=== PATIENT | female | born 1940 | race Caucasian/White ===

== ENCOUNTER → 2023-07-19 11:11 | Outpatient (REF) | payer OTHER, SELFPAY | LOC: HWRAD 11:11 | PROVIDERS: ATTENDING PHYSICIAN Internal Medicine | DX: R10.31 Right lower quadrant pain (principal); R10.32 Left lower quadrant pain | CPT/HCPCS: 73523 ==

== ENCOUNTER → 2023-11-01 11:39 | Outpatient (REF) | payer OTHER, SELFPAY | LOC: HWRAD 11:39 | PROVIDERS: ATTENDING PHYSICIAN Internal Medicine | DX: R06.02 Shortness of breath (principal) | CPT/HCPCS: 71046 ==

== ENCOUNTER → 2023-12-21 11:22 | Outpatient (REF) | payer OTHER, SELFPAY ==
[2023-12-21 16:09] LABS: Blood Urea Nitrogen 20 mg/dl (7-17)
== END ==
LOC: HWLAB 11:22
PROVIDERS: ATTENDING PHYSICIAN Internal Medicine Critical Care Medicine; FAMILY PHYSICIAN Internal Medicine
DX: Z01.812 Encounter for preprocedural laboratory examination (principal)
CPT/HCPCS: 36415; 82565; 84520

== ENCOUNTER 2023-12-21 23:37 | Inpatient (IN) | payer OTHER, SELFPAY ==
[2023-12-21 18:28] VITALS: BP 170/93
[2023-12-21 21:16] VITALS: BP 179/81
[2023-12-21 21:24] LABS: % Basophils 0.6 % (0-2); % Eosinophils 1.9 % (0-6); % Immature Granulocytes 0.3 % (0-0.5); % Lymphocytes 25.2 % (20.5-51.1); % Monocytes 7.9 % (1.7-9.3); % Neutrophils 64.1 % (42.2-75.2); Absolute Eosinophils 0.1 10^3/uL (0-0.7); Absolute Lymphocytes 1.6 10^3/uL (1.2-3.4); Absolute Monocytes 0.5 10^3/uL (0.1-0.6); Hematocrit 36.7 % (37.0-47.0); Hemoglobin 12.6 g/dL (12.0-16.0); Mean Corp Hgb Conc. 34.3 g/dL (33.0-37.0); Mean Corpuscular Volume 90.4 fL (81.0-99.0); Mean Platelet Volume 10.5 fL (7.4-10.4); Nucleated Red Blood Cells % 0 %; Platelet Count 242 10^3/uL (130-400); Red Blood Cell Count 4.06 10^6/uL (4.20-5.40); Red Cell Dist. Width 13.2 % (11.5-14.5); White Blood Cell Count 6.2 10^3/uL (4.8-10.8)
[2023-12-21 21:25] VITALS: BMI 33.3
--- NOTE | 2023-12-21 21:25 | ED.GENMED ---
History of Present Illness
General
Chief Complaint: Breathing Problem
Source: patient, records (From Dr. frank office), spouse and family
Exam Limitations: none
Time Seen by Provider: 12/21/23 20:47
History of Present Illness
History of Present Illness:
83-year-old female with aphasia prior meningioma prior DVT has had shortness of breath for 1 year seen by cardiology total was in cardiac saw pulmonary for the first time for my review of the records not thought to have significant reactive airway
disease had blood work, including a D-dimer was elevated referred here for a CT scan denies fever denies chills denies cough does get short of breath when she walks no leg edema
Past History
Past History
ED Past Medical History: Other (See nurses note)
ED Past Surgical History: Brain
Social History
Tobacco: Former smoker
Alcohol: None
Drug: None
Personal:
Living: with family
Employment: Retired
Review of Systems
Review of Systems
Constitutional: Denies fever or fatigue
Respiratory: Reports trouble breathing (X 1 year); Denies cough
Cardiac: Reports no symptoms
ABD/GI: Reports no symptoms
: Reports no symptoms
Skin: Reports no symptoms
Phy Exam
Physical Exam
Physical Exam:
Physical Exam
General: no apparent distress, not acutely ill
Neck: No jaundice
Heart: Regular
Lungs: no acute respiratory distress. clear bilaterally
Abdomen: Nontender
Neuro: alert and oriented. Partial aphasia
Skin: no rash
Psychiatric: cooperative
Extremities: Question slight asymmetry right greater than left lower extremity
Scores
Heart Failure Risk
Heart Failure Risk Score: Not Applicable
Course
Orders/Labs/Results
Orders:
Orders
12/21/23 18:32
Electrocardiogram (*1) Urgent
Reason for Study: Shortness of Breath
EKG- Treatment ONCE
12/21/23 20:55
CT Chest Pe Study Urgent
Comment:
Reason For Exam: sob ddmer up
12/21/23 21:17
Complete Blood Count/With Diff Urgent
Comprehensive Metabolic Panel Urgent
D-Dimer Urgent
12/21/23 23:09
Heparin 6,600 units IV NOW STA
Pharmacy Request to Place See Dose Instructions PO NOW STA
Discontinue all Active Warfarin orders?: Yes
12/21/23 23:10
PTT Urgent
Comment: Obtain baseline before beginning heparin infusion if not already collected
Nursing to Place Non Medication Order As Directed
Physician Order: PTT 6 hours after initial start of Heparin infusion
12/21/23 23:15
Heparin INFUSION titrate rate - CONTINUOUS Heparin 87707 Units/250 ml 25,000 units in 250 ml IV PER PROTOCOL
Weight to be used for heparin protocol in kilograms (kg):: 82.4
Protocol:: DVT/PE
PTT Goal Range to be used:: PTT 73 to 111 seconds
Order type:: Initial
INITIAL Infusion Dose (UNITS/KG/hr) & then follow protocol:: 18 units/kg/hr
Infusion Dose in UNITS/hr & then follow protocol (UNITS/hr):: 1,500
INFUSION RATE in mL/hr & then follow protocol (mL/hr):: 15
For DVT/PE algorithm, re-bolus for low PTT?: Yes
PTT less than or equal to 64 seconds:: Re-bolus 80 units/kg (max 10,000units). Increase by 300 units/hr
(+ 3mL/hr)
PTT 64.1 to 72.9 seconds:: Re-bolus 40 units/kg (max 5,000 units). Increase by 200 units/hr
(+ 2mL/hr)
PTT 73 to 111 seconds:: Target Range. No change in rate.
PTT 111.1 to 130.9 seconds:: Decrease rate by 200 units/hr (- 2 mL/hr)
PTT 131 to 199.9 seconds:: HOLD for 1 hr. Then decrease by 200 units/hr (- 2mL/hr)
PTT greater than or equal to 200 seconds:: HOLD for 2 hrs & Notify Provider. Then decrease by 300 units/hr
(- 3mL/hr)
Lab follow-up:: Each change, PTT q6h until 2 consecutive are therapeutic. Then
PTT daily.
12/21/23 23:[address] See Dose Instructions IV DIRECTED
Abnormal Lab Results
12/21/23
21:17
RBC 4.06 L 10^6/uL
(4.20-5.40)
Hct 36.7 L %
(37.0-47.0)
MPV 10.5 H fL
(7.4-10.4)
D-Dimer 1.30 H ug/mlFEU
(0.00-0.50)
BUN 19 H mg/dl
(7-17)
Glucose 109 H mg/dl
(70-99)
Calcium 10.6 H mg/dl
(8.4-10.2)
12/21/23 21:17
12/21/23 21:17
Vital Signs
Initial and Last Documented VS:
Initial Vital Signs
Temp Pulse Resp BP Pulse Ox
98.2 F 44 18 170/93 99
12/21/23 18:28 12/21/23 18:28 12/21/23 18:28 12/21/23 18:28 12/21/23 18:28
Last Documented Vital Signs
Temp Pulse Resp BP Pulse Ox
98.2 F 44 20 179/81 96
12/21/23 18:28 12/21/23 21:16 12/21/23 21:16 12/21/23 21:16 12/21/23 21:25
MDM/Problems Addressed
Differential Diagnosis Includes:
Deconditioning, PE, heart failure
MDM/Problems Addressed:
Shortness of breath
Chronic conditions affecting care: HTN and Neurological disorder
Acute Exacerbation and/or Progression of Chronic Illness: HTN and Neurological disorder
*Radiology
Radiology exam reviewed: radiology read reviewed
*EKG
Interpreted by ED Provider?: Yes
Interpretation: normal
Comparison EKG: no comparison EKG present
Heart Rate: 70
Rate: normal
Rhythm: sinus
Ischemia: non-specific ST changes
*[employer] Operator Interpretation
Rate: normal
Interpretation: normal
Heart Rate: 70
Rhythm: sinus
*Critical Care Note
Total Time (30-74mins, 75-104mins- exclusive of procedures): 30
Update Note
Update Note:
Update consult from 2 days ago from pulmonary reviewed had a rather extensive workup not thought to have significant lung disease likewise family states that cell cardiology did not think that she has significant heart related dyspnea, from
reviewing the pulmonary notes it was thought this could be deconditioning, but D-dimer is elevated, will check CT scan
Update CT reviewed with radiology positive PE and mediastinal mass, will start on unfractionated heparin
ED Attending Note
-
Portions of this chart may have been created with voice recognition software.� Occasional wrong word or��sound alike� substitutions may have occurred due to the inherent limitations of voice recognition software.
Discharge Plan
Departure
Patient Disposition: Admit
Date of Disposition: 12/21/23
Time of Disposition: 23:11
Admit to: Med/Surg
Presentation/result/management discussed w/ accepting MD/DO: Hospitalist
Patient with high blood pressure during this ER visit?: No
Condition: Fair
Discharge Problem:
Pulmonary embolism
Prescriptions:
No Action
nifedipine [Procardia XL] 30 MG tablet extended release 24hr
30 mg PO DAILY
ranitidine HCl [Zantac] 300 MG tablet
300 mg PO HS
sucralfate 1 GRAM tablet
1 g PO BID
fexofenadine [Feli] 180 MG tablet
180 mg PO DAILY
omeprazole 40 MG capsule,delayed release(DR/EC)
40 mg PO BID
ascorbic acid (vitamin C) [Vitamin C] 500 MG tablet
500 mg PO DAILY
exemestane 25 MG tablet
25 mg PO DAILY
levothyroxine 150 MCG tablet
150 mcg PO DAILY AT 0700
furosemide 20 MG tablet
20 mg PO DAILY
losartan [Cozaar] 100 MG tablet
100 mg PO DAILY
rosuvastatin [Crestor] 5 MG tablet
5 mg PO .EVERYDAY
cholecalciferol (vitamin D3) 2,000 UNITS tablet
2,000 unit PO DAILY
magnesium oxide 400 MG tablet
400 mg PO DAILY
sennosides [senna] 1 TABLET tablet
2 tab PO BID Qty: 0 0RF
acetaminophen 325 MG tablet
650 mg PO QID Qty: 0 0RF
polyethylene glycol 3350 17 GRAMS powder in packet
17 grams PO DAILY Qty: 0 0RF
citalopram 10 MG tablet
10 mg PO HS Qty: 0 0RF
magnesium hydroxide 30 ML suspension
30 ml PO HS Qty: 0 0RF
oxycodone 5 MG tablet
5 mg PO Q4HPRN PRN (Reason: moderate-severe pain) Qty: 90 0RF
Rx Instructions:
dx tka
1-2 tabs
calcium carbonate-vitamin D3 [Oyster Shell Calcium-Vit D3] 500 MG tablet
500 mg PO DAILY Qty: 0 0RF
docusate sodium 100 MG capsule
100 mg PO BID Qty: 0 0RF
warfarin [Jantoven] 3 MG tablet
3 mg PO TONIGHT AT 1800 Qty: 90 0RF
Rx Instructions:
then as advised after INR
prednisone 10 MG tablet
40 mg PO .TAPER Qty: 20 0RF
Rx Instructions:
Take 40mg daily x2days, 30mg daily x2days,
20mg daily x2days, 10mg daily x2days.
Referrals:
Carisa Byrne MD [Family Provider] -
Interventions
Interventions:
*General Assessment Last Done: 12/21/23 18:28
*Neglect/Abuse Screening Last Done: 12/21/23 18:28
ED- Fall Risk Assessment Last Done: 12/21/23 21:25
*ED COVID-19 Vaccine History Last Done: 12/21/23 21:25
ED- Cardiac Assessment Last Done: 12/21/23 21:25
ED- Pulmonary Assessment Last Done: 12/21/23 21:25
Discharge Date and Time
Print Language: CAMEROONIAN
[2023-12-21 21:30] VITALS: BP 185/82
[2023-12-21 21:52] LABS: ALT (SGPT) 15 U/L (0-35); AST (SGOT) 23 U/L (14-36); Albumin 4.2 g/dl (3.5-5.0); Alkaline Phosphatase 95 U/L (38-126); Blood Urea Nitrogen 19 mg/dl (7-17); Calcium 10.6 mg/dl (8.4-10.2); Carbon Dioxide 28 mmol/L (22-30); Chloride 102 mmol/L (98-107); Estimated Creatinine Clearance 45 ml/min; Glucose 109 mg/dl (70-99); Potassium 3.8 mmol/L (3.5-5.1); Sodium 138 mmol/L (135-145); Total Bilirubin 0.8 mg/dl (0.2-1.3); Total Protein 6.5 g/dl (6.3-8.2); eGFR > 60.00
[2023-12-21 22:47] VITALS: BP 195/79
[2023-12-21 23:00] VITALS: BP 177/79
--- NOTE | 2023-12-21 23:15 | HPS.HSE ---
Family Physician
-
Family Physician: Carisa Byrne
Chief Complaint
-
Shortness of breath, CAMPBELL
History of Present Illness
83-year-old female complaining of shortness of breath and dyspnea on exertion for the past several months. She was seen by Dr. Ramirez pulmonology 1 week ago in the office she was sent for outpatient labs showed a elevated D-dimer. She was sent to
ER for eval of a CT PE study which showed small acute pulmonary emboli in the right upper lobe moderate cardiomegaly and a 2.8 cm anterior mediastinal mass. She denies headache, fever, chills, weight loss, cough, abdominal pain, nausea, vomiting,
diarrhea, urinary symptoms.
She she has past medical history DVT right lower extremity 1983, HTN, HLD, meningioma with removal then meningioma with clot removal 1983 after IV heparin for DVT. Aphasia secondary to prior meningioma. Hypothyroidism, thyroid nodules, anxiety,
OA, diverticulosis/diverticulitis, hiatal hernia, constipation, right breast CA with radiation lumpectomy 16 years ago
Medical History
Past Medical History
Past Medical History: Reports Other
Additional Past Medical History:
DVT right lower extremity 1983
HTN
HLD
meningioma x 2 removal had clot removal after bleed on heparin from DVT 19 years ago
Aphasia from prior meningioma
Former smoker quit 1980
hypothyroidism/ thyroid nodules
anxiety
OA
diverticulosis/diverticulitis
hiatal hernia
constipation
right breast CA with radiation lumpectomy
Past Surgical History: Reports Other
Additional Past Surgical History:
Benign thyroid nodule removal 1958, 1971
Removal of benign brain tumor meningioma with post bleed 05/1987
Hysterectomy 1987
Right breast biopsy, right axilla lymph node removal, radiation right breast secondary breast cancer 2012
Social History
Tobacco: Former Smoker (Quit 1980)
Alcohol: Occasional
Drug: None
Personal:
Living: With Family
Employment: Retired
Family History
Family History: Other (Mother pancreatic cancer, father MVA, brother living history of prostate cancer, sister living history of lymphoma, patient's son living history of breast cancer, renal carcinoma, thyroid cancer)
Allergies / Home Medications
Allergies reflects when Allergies were last updated in [facility].
Home Medications with original date entered in [facility]
Allergy/Medication List:
Allergies
Allergy/AdvReac Type Severity Reaction Status Date / Time
aminophylline Allergy Rash Verified 06/17/21 15:48
amlodipine Allergy Swelling Verified 06/17/21 15:48
amlodipine besylate Allergy edema Verified 06/17/21 15:48
[From Norvasc]
atenolol Allergy 'felt Verified 06/17/21 15:48
lousy'
codeine Allergy constipatio Verified 06/17/21 15:48
n
cortisone Allergy Rash Verified 06/17/21 15:48
diltiazem Allergy edema Verified 06/17/21 15:48
dipyridamole Allergy Rash Verified 06/17/21 15:48
[From Persantine]
irbesartan [From Avapro] Allergy palpitation Verified 06/17/21 15:48
s
olmesartan medoxomil Allergy dizziness Verified 06/17/21 15:48
[From Benicar]
Penicillins Allergy Rash Verified 06/17/21 15:48
phenytoin sodium Allergy Rash Verified 06/17/21 15:48
[From Dilantin]
phenytoin sodium extended Allergy Rash Verified 06/17/21 15:48
[From Dilantin]
prednisone Allergy Rash Verified 06/17/21 15:48
shellfish derived Allergy Welts Verified 06/17/21 15:48
simvastatin [From Zocor] Allergy muscle pain Verified 06/17/21 15:48
Sulfa (Sulfonamide Allergy Unknown Verified 06/17/21 15:48
Antibiotics)
Home Medications
ascorbic acid (vitamin C) 500 mg tablet (Vitamin C) 500 mg PO DAILY 03/07/16
cholecalciferol (vitamin D3) 50 mcg (2,000 unit) tablet 2,000 unit PO DAILY PRN unsure 03/07/16
fexofenadine 180 mg tablet (Feli) 180 mg PO DAILY 03/07/16
furosemide 20 mg tablet 20 mg PO DAILY 03/07/16
levothyroxine 150 mcg tablet 150 mcg PO DAILY AT 0700 03/07/16
magnesium oxide 400 mg PO DAILY 03/07/16
nifedipine 30 mg tablet,extended release 24 hr (Procardia XL) 30 mg PO DAILY 03/07/16
omeprazole 40 mg capsule,delayed release 40 mg PO BID 03/07/16
rosuvastatin 5 mg tablet (Crestor) 5 mg PO DAILY 03/07/16
B12 500 mcg PO DAILY 12/21/23
Caltrate 600 plus D 1 tab PO DAILY 12/21/23
Celebrex 200 mg PO DAILY PRN pain 12/21/23
Vitamin C 500 mg PO DAILY 12/21/23
cholecalciferol (vitamin D3) 1,000 mg PO DAILY 12/21/23
folic acid 1 mg PO DAILY 12/21/23
valsartan 160 mg PO DAILY 12/21/23
acetaminophen 325 mg tablet 500 mg PO Q6H 12/22/23
citalopram 10 mg tablet 20 mg PO HS 12/22/23
Review of Systems
-
History Source: Patient and Family (Daughter and at bedside)
A 12 point ROS was completed and negative except as noted: Yes
Constitutional: Denies Fever, Fatigue or Chills
EENT: Reports Other (Chronic aphasia); Denies Sore Throat or Runny Nose
Respiratory: Reports Trouble Breathing (SOB/CAMPBELL); Denies Cough
Cardiac: Reports Chest Pain (Left upper chest); Denies Diaphoresis, Palpitations or Syncope
Abdomen/GI: Denies Abdominal Pain, Nausea, Vomiting, Diarrhea or Constipated
: Denies Dysuria, Frequency, Flank Pain, Incontinence, Difficulty Voiding or Bleeding
Musculoskeletal: Reports Edema (Bilateral legs +1 left greater than right); Denies Joint Pain
Skin: Denies Itching or Rash
Neurological: Denies Dizzy, Headache or Weakness
Endocrine: Reports No Symptoms
Hematologic/Lymphatic: Reports No Symptoms
Psych: Reports Calm
Physical Exam
Vital Signs
Vital Signs
Temp Pulse Resp BP Pulse Ox
98.2 F 44 20 179/81 96
12/21/23 18:28 12/21/23 21:16 12/21/23 21:16 12/21/23 21:16 12/21/23 21:25
Physical Exam
General: No Apparent Distress, Comfortable and Conversant; No Pain, Fever or Chills
HEENT: NormoCephalic, Anicteric, Moist mucous membranes, PERRLA, [place] Conjunctivae, No Ptosis and Other (Chronic aphasia)
Respiratory: Clear; No Wheezes, Rales or Rhonchi
Cardiac: S1/S2 and Regular Rhythm; No Murmur, Rub or Gallop
Breast: Deferred by me
GI: Soft, Non Tender, Non Distended, Normal Bowel Sounds and No Hepatosplenomegaly
Rectal: Deferred by Provider
Genito-urinary: Deferred by me
Musculoskeletal: No Clubbing, No Cyanosis, Edema, Left Lower Extremity (Bilateral legs +1 left greater than right) and Edema, Right Lower Extremity (Bilateral legs +1 left greater than right); No Edema, Left Upper Extremity or Edema, Right Upper
Extremity
Skin: Warm and Dry; No Rash or Jaundice
Neuro: AO x 3, No Motor Deficits, No Sensory Deficits and Slurred Speech (Chronic aphasia from prior meningioma); No Facial Droop, Tremors or Sedated
Psych: Calm
Laboratory Results
-
12/21/23 21:17
12/21/23 21:17
Laboratory Results
Total Bilirubin 0.8 mg/dl (0.2-1.3) 12/21/23 21:17
AST 23 U/L (14-36) 12/21/23 21:17
ALT 15 U/L (0-35) 12/21/23 21:17
Alkaline Phosphatase 95 U/L (38-126) 12/21/23 21:17
Impression/Plan
-
Impression/plan:
Admit to telemetry
#Acute PE right upper lobe
96% RA
-IV heparin drip
-Consult pulmonary
-2D echo
Venous Doppler bilateral legs
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
-Consult pulmonary
CT chest: Acute pulmonary emboli right upper lobe. Moderate cardiomegaly. 2.8 cm mass in the anterior mediastinum diagnostic possibilities thymic epithelial tumor, lymphoma, germ cell tumor or a complex cyst. Mild subpleural scarring in the lower
lobes of the lungs. Small hiatal hernia. Severe multilevel thoracic DDD and moderately exaggerated thoracic kyphosis
#Multilevel thoracic DDD/thoracic kyphosis
#DVT hx right lower extremity 1983
#Meningioma removal x2-no residual meningioma per family at bedside at [facility]
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
with post hemorrhage removal after dvt treatment with heparin 19 years ago
#HTN
-BP 179/81
HLD
Hypothyroidism/ thyroid nodules
-Continue levothyroxine
Anxiety
-
OA
Diverticulosis/diverticulitis
Hiatal hernia
Constipation
Right breast CA with radiation lumpectomy 16 years ago
Former smoker quit 1980
DVT prophylaxis
Current IV heparin drip
DNR per patient with daughter and at bedside
--- NOTE | 2023-12-21 23:19 | W.PN.UPDATE ---
Update Note
Progress Note Update
This note serves as an addendum to the H&P by building energy consultant VINCENT Kaylynn DOTSON
HPI:
83F HX aphasia prior meningioma, HX DVT pw shortness of breath with exertion
HX significant reactive airway disease had blood work, including a D-dimer was elevated referred to ER for a CT scan
- denies fever denies chills denies cough does get short of breath when she walks no leg edema
Vital Signs
Temp Pulse Resp BP Pulse Ox
98.2 F 44 20 179/81 96
12/21/23 18:28 12/21/23 21:16 12/21/23 21:16 12/21/23 21:16 12/21/23 21:25
Abnormal Lab Results
12/21/23
21:17
RBC 4.06 L
Hct 36.7 L
MPV 10.5 H
D-Dimer 1.30 H
BUN 19 H
Glucose 109 H
Calcium 10.6 H
EKG:
SINUS BRADYCARDIA WITH 1ST DEGREE A-V BLOCK WITH PREMATURE ATRIAL COMPLEXES
LEFT VENTRICULAR HYPERTROPHY WITH QRS WIDENING AND REPOLARIZATION ABNORMALITY
( R in aVL , Shiva product )
CANNOT RULE OUT SEPTAL INFARCT (CITED ON OR BEFORE 07-MAR-2016)
ABNORMAL ECG
WHEN COMPARED WITH ECG OF 07-MAR-2016 09:32,
PREMATURE ATRIAL COMPLEXES ARE NOW PRESENT
QRS DURATION HAS INCREASED
ST NOW DEPRESSED IN LATERAL LEADS
[facility] PE protocol
- small acute PE in the Rt uppr lobe.
- Moderate cardiomegaly.
- 2.8 cm mass in the anterior mediastinum. Diagnostic possibilities are (1) a thymic epithelial tumor, (2) lymphoma, (3) a germ cell tumor, or (4) a complex cyst.
- Mild subpleural scarring in the lower lobes of the lungs.
- Small hiatal hernia.
- Severe multilevel thoracic discogenic degenerative disease and moderately exaggerated thoracic kyphosi
ASSESSMENT & PLAN
Acute on chronic Schreiber with POx 96 % on RA
Small acute PE in the Rt uppr lobe
No clinical evidence of RV strain
HX DVT
- agree with Heparin gtt
- ECHO in AM
- Pul consult
2.8 cm mass in the anterior mediastinum.
DDX (1) a thymic epithelial tumor, (2) lymphoma, (3) a germ cell tumor, or (4) a complex cyst.
- await Pul evaluation
[facility] HTN
- await Rx reconciliation
HX aphasia s/p meningioma resection
DVT Px: on Heaprin gtt
Code: Full
IP TLM
[2023-12-22] VITALS (7 sets, daily range): BP systolic 119–187; BP diastolic 61–86; BMI 30.4
[2023-12-22] MEDS: HEPARIN 6600 UNITS IV (00:06)
[2023-12-22] MEDS: HEPARIN 25000 UNITS/250 ML IV ×2 (00:08→20:28)
[2023-12-22] MEDS: TYLENOL PO ×2 (01:53→17:25)
[2023-12-22] MEDS: SYNTHROID 150 MCG PO (06:18)
[2023-12-22 06:19] LABS: % Basophils 0.6 % (0-2); % Eosinophils 2.5 % (0-6); % Immature Granulocytes 0.4 % (0-0.5); % Lymphocytes 31.3 % (20.5-51.1); % Monocytes 7.2 % (1.7-9.3); Absolute Eosinophils 0.2 10^3/uL (0-0.7); Absolute Lymphocytes 2.1 10^3/uL (1.2-3.4); Absolute Monocytes 0.5 10^3/uL (0.1-0.6); Absolute Neutrophils 3.9 10^3/uL (1.4-6.5); Hematocrit 36.8 % (37.0-47.0); Hemoglobin 12.6 g/dL (12.0-16.0); Mean Corp Hgb Conc. 34.2 g/dL (33.0-37.0); Mean Corpuscular Hgb 30.9 pg (27.0-31.0); Mean Corpuscular Volume 90.2 fL (81.0-99.0); Mean Platelet Volume 10.2 fL (7.4-10.4); Nucleated Red Blood Cells % 0 %; Platelet Count 250 10^3/uL (130-400); Red Blood Cell Count 4.08 10^6/uL (4.20-5.40); Red Cell Dist. Width 13.2 % (11.5-14.5); White Blood Cell Count 6.8 10^3/uL (4.8-10.8)
[2023-12-22] MEDS: TYLENOL 500 MG PO ×2 (06:19→15:12)
[2023-12-22 06:43] LABS: APTT > 200.0 Sec (23.4-35.0)
[2023-12-22 08:54] LABS: Blood Urea Nitrogen 16 mg/dl (7-17); Calcium 10.5 mg/dl (8.4-10.2); Carbon Dioxide 27 mmol/L (22-30); Chloride 103 mmol/L (98-107); Estimated Creatinine Clearance 47 ml/min; Glucose 126 mg/dl (70-99); Potassium 3.7 mmol/L (3.5-5.1); Sodium 140 mmol/L (135-145); eGFR > 60.00
[2023-12-22] MEDS: CRESTOR 5 MG PO (08:57)
[2023-12-22] MEDS: MAGNESIUM OXIDE 500 MG PO (08:57)
[2023-12-22] MEDS: OSCAL 500 + D 500 MG PO (08:57)
[2023-12-22] MEDS: VITAMIN D3 (cholecalciferol) 50 MCG PO (08:57)
[2023-12-22] MEDS: DIOVAN 160 MG PO (08:57)
[2023-12-22] MEDS: VITAMIN C 500 MG PO (08:57)
[2023-12-22] MEDS: LASIX 20 MG PO (08:57)
[2023-12-22] MEDS: FOLVITE 1 MG PO (08:57)
[2023-12-22] MEDS: CLARITIN 10 MG PO (08:57)
[2023-12-22] MEDS: PROTONIX 40 MG PO ×2 (08:57→20:27)
[2023-12-22] MEDS: PROCARDIA XL (EXTENDED RELEASE) 30 MG PO (09:00)
--- NOTE | 2023-12-22 09:42 | CON.PUL ---
Consultation
Consultation Request
Date/Time Consultation Requested: 12/21/20232357
Date/Time Consultation Performed: 12/22/2023 - 919
Requesting Provider: DENAE Hughes
Performing Provider: Richard Rodriguez MD
Reason for Consultation: Acute PE
Medical History
-
Chief Complaint: Worsening SOB
History of Present Illness:
83-year-old female with a past medical history of GERD, hypothyroidism, hypertension, hyperlipidemia, history of breast cancer, history of postoperative RLE DVT, history pneumonia, and osteoporosis who presents with worsening SOB. Patient follows
with us in the office with last visit on 12/06/[address] Fritz. Patient has shortness of breath with activity and 6 MWT at that office visit showed she had homar SpO2 of 93% and she was able to walk 850 feet. PFT did not show any evidence of
obstructive or restrictive lung disease, with mild gas exchange capacity defect which was normal when accounting for alveolar volume involving gas exchange (DLco: 64%; DLco/VA: 74%). She is a former smoker smoking minimally for 4 years and quit in
1983. She has a history of a postoperative right lower extremity DVT. She was also felt to have physical deconditioning. Physical therapy was recommended to her by her PCP as well as speech therapy. At this last office visit, D-dimer was
recommended with plans for CTA chest if elevated. D-dimer was found to be elevated at 2.44 so she went to the hospital for further evaluation. Initial vitals showed she was afebrile to 98.2 �F, bradycardic to 44, breathing at 18 breaths/minute, BP
170/93 and saturating 99% on room air. Labs showed normal WBC at 6.2, Hb 12.6, and D-dimer 1.3. CTA chest showed a small acute pulmonary embolism in the right upper lobe in addition to a 2.8 cm mass in the anterior mediastinum. Patient was
started on IV heparin, and admitted to the hospitalist service for further care. Pulmonary now consulted for additional management/recommendations.
When I saw the patient, the patient's daughter, Laura, was present at bedside. Patient has expressive aphasia so unable to obtain history or ROS from her. According to the patient's daughter, she has been doing better since she has been
hospitalized. Patient has been, however, feeling more short of breath over the last 5-6 months. She normally is an independent woman and able to perform all activities of daily living with autonomy. This has been worsening over the last several
months. Patient currently is on room air breathing comfortably. She appears to be in no acute distress. Currently on heparin drip.
PMHx: Reflux esophagitis, hypothyroidism, hypertension, hyperlipidemia, breast cancer, allergic rhinitis, meningioma, postoperative DVT, osteoporosis, expressive aphasia, history of pneumonia, history of bronchitis, physical deconditioning
PSHx: Cataract extraction, total abdominal hysterectomy/BSO, tonsillectomy, partial thyroidectomy, right knee replacement, trigger finger release, lipoma excision, meningioma resection, lymph node dissection
Past Medical History
Past Medical History: Other (Above as per HPI)
Past Surgical History: Other (Above as per HPI)
Social History
Tobacco: Former Smoker (Quit in 1983, smoked for about 4 years with 2-3 cigarettes socially)
Alcohol: None
Drug: None
Living: [facility]
Family History
Family History: Cancer (Mother: Pancreatic cancer; maternal grandmother: Colon cancer; maternal uncle: Colon cancer; son: Thyroid cancer), Hypertension (Sibling) and Other (Sibling: Multiple sclerosis)
Allergies / Home Medications
Allergies
Allergy/AdvReac Type Severity Reaction Status Date / Time
aminophylline Allergy Rash Verified 06/17/21 15:48
amlodipine Allergy Swelling Verified 06/17/21 15:48
amlodipine besylate Allergy edema Verified 06/17/21 15:48
[From [facility]]
atenolol Allergy 'felt Verified 06/17/21 15:48
lousy'
codeine Allergy constipatio Verified 06/17/21 15:48
n
cortisone Allergy Rash Verified 06/17/21 15:48
diltiazem Allergy edema Verified 06/17/21 15:48
dipyridamole Allergy Rash Verified 06/17/21 15:48
[From Persantine]
irbesartan [From Avapro] Allergy palpitation Verified 06/17/21 15:48
s
olmesartan medoxomil Allergy dizziness Verified 06/17/21 15:48
[From Benicar]
Penicillins Allergy Rash Verified 06/17/21 15:48
phenytoin sodium Allergy Rash Verified 06/17/21 15:48
[From Dilantin]
phenytoin sodium extended Allergy Rash Verified 06/17/21 15:48
[From Dilantin]
prednisone Allergy Rash Verified 06/17/21 15:48
shellfish derived Allergy Welts Verified 06/17/21 15:48
simvastatin [From Zocor] Allergy muscle pain Verified 06/17/21 15:48
Sulfa (Sulfonamide Allergy Unknown Verified 06/17/21 15:48
Antibiotics)
Home Medications
�Medication �Instructions �Recorded �Confirmed �Last Taken �Type
ascorbic acid (vitamin C) 500 mg 500 mg PO DAILY 03/07/16 12/22/23 12/21/23 09:00 History
tablet (Vitamin C)
cholecalciferol (vitamin D3) 50 2,000 unit PO DAILY PRN unsure 03/07/16 12/22/23 03/19/16 History
mcg (2,000 unit) tablet
fexofenadine 180 mg tablet 180 mg PO DAILY 03/07/16 12/22/23 12/21/23 09:00 History
(Feli)
furosemide 20 mg tablet 20 mg PO DAILY 03/07/16 12/22/23 12/21/23 History
levothyroxine 150 mcg tablet 150 mcg PO DAILY AT 0700 03/07/16 12/22/23 12/21/23 07:00 History
magnesium oxide 400 mg PO DAILY 03/07/16 12/22/23 12/21/23 09:00 History
nifedipine 30 mg tablet,extended 30 mg PO DAILY 03/07/16 12/22/23 12/21/23 09:00 History
release 24 hr (Procardia XL)
omeprazole 40 mg capsule,delayed 40 mg PO BID 03/07/16 12/22/23 12/21/23 10:00 History
release
rosuvastatin 5 mg tablet (Crestor) 5 mg PO DAILY 03/07/16 12/22/23 12/21/23 09:00 History
B12 500 mcg PO DAILY 12/21/23 12/22/23 12/21/23 09:00 History
Caltrate 600 plus D 1 tab PO DAILY 12/21/23 12/22/23 12/21/23 09:00 History
Celebrex 200 mg PO DAILY PRN pain 12/21/23 12/22/23 Unknown History
Vitamin C 500 mg PO DAILY 12/21/23 12/22/23 12/21/23 09:00 History
cholecalciferol (vitamin D3) 1,000 mg PO DAILY 12/21/23 12/22/23 12/21/23 09:00 History
folic acid 1 mg PO DAILY 12/21/23 12/22/23 12/21/23 09:00 History
valsartan 160 mg PO DAILY 12/21/23 12/22/23 12/21/23 09:00 History
acetaminophen 325 mg tablet 500 mg PO Q6H PRN pain 12/22/23 12/22/23 12/21/23 09:00 History
citalopram 10 mg tablet 20 mg PO HS 12/22/23 12/22/23 12/20/23 22:00 History
Review of Systems
-
Unable to Obtain full review of systems at this time due to: Other (Patient has expressive aphasia)
Vitals / Labs / Diagnostic Testing
Vital Signs
Temp Pulse Resp BP Pulse Ox
98.4 F 42 18 181/86 94
12/22/23 07:06 12/22/23 07:06 12/22/23 07:06 12/22/23 07:06 12/22/23 07:06
Lab Data
12/22/23 06:04
12/22/23 06:04
Laboratory Results
12/21/23 12/22/23
23:10 06:04
PT 14.0
INR 1.10
APTT Cancelled > 200.0 H*
Diagnostic Testing:
Physical Exam
-
HEENT: Normocephalic and Anicteric
Cardiovascular: S1/S2, Murmur (RADHA heard across precordium) and Peripheral Edema (negative)
Respiratory: Wheeze (negative), Rales (Bibasilar), Rhonchi (negative) and Non-Labored Respirations
GI: Soft, Non Distended, Non Tender and Normal Bowel Sounds
Neurology: Awake, Alert and Tremors (negative)
Skin: Warm and Dry
General: Respiratory Distress (negative), Comfortable, Chills (negative) and Sweats (negative)
Assessment
-
Assessment: 83-year-old female with a past medical history of GERD, hypothyroidism, hypertension, hyperlipidemia, history of breast cancer, history of postoperative RLE DVT, history pneumonia, and osteoporosis who presents with worsening SOB.
Patient follows with us in the office with last visit on 12/06/[address] Fritz. Patient has shortness of breath with activity and 6 MWT at that office visit showed she had homar SpO2 of 93% and she was able to walk 850 feet. PFT did not show
any evidence of obstructive or restrictive lung disease, with mild gas exchange capacity defect which was normal when accounting for alveolar volume involving gas exchange (DLco: 64%; DLco/VA: 74%).. She is a former smoker smoking minimally for 4
years and quit in 1983. She has a history of a postoperative right lower extremity DVT. She was also felt to have physical deconditioning. Physical therapy was recommended to her by her PCP as well as speech therapy. At this last office visit,
D-dimer was recommended with plans for CTA chest if elevated. D-dimer was found to be elevated at 2.44 so she went to the hospital for further evaluation. Initial vitals showed she was afebrile to 98.2 �F, bradycardic to 44, breathing at 18
breaths/minute, BP 170/93 and saturating 99% on room air. Labs showed normal WBC at 6.2, Hb 12.6, and D-dimer 1.3. CTA chest showed a small acute pulmonary embolism in the right upper lobe in addition to a 2.8 cm mass in the anterior mediastinum.
Patient was started on IV heparin, and admitted to the hospitalist service for further care. Pulmonary now consulted for additional management/recommendations.
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
deconditioning
Impression:
#Submassive pulmonary embolism without right heart strain
#2.8 cm incidental mass seen in the anterior mediastinum seen on CTA chest from 12/21/2023
#Hypothyroidism
#Reflux esophagitis
#Allergic rhinitis
#History of postoperative right lower extremity DVT
#Osteoporosis
#Expressive aphasia
#History of meningioma s/p resection
#Former Hx of light tobacco use (2-3 cigarettes per day for ~4 years - quit 1983)
Plan:
- Continue with systemic parenteral anticoagulation with heparin drip
- Will continue with heparin drip for at least 24-48 hours before transitioning to NOAC; would also wait until cardiothoracic surgery evaluates patient in case mediastinal mass biopsy is needed
- Check 2D echo
- Lower extremity duplex negative for bilateral lower extremity DVT
- Maintain SpO2 >90-94% with supplemental O2 as needed
- Incentive spirometer
- Recommend cardiothoracic surgery consult regarding incidental 2.8 cm anterior mediastinal mass
- Replete electrolytes with K>4, Mg>2
- Maintain euglycemia with goal BG >100 and <180
- prn nebulized bronchodilators - pt not currently bronchospastic
- DVT ppx
Pulmonary service will continue to follow along. Patient was advised to follow-up with Dr. Fritz as an outpatient following discharge.
Data:
CTA Chest 12/21/2023:
1. SMALL ACUTE PULMONARY EMBOLI in the RIGHT UPPER LOBE.
2. Moderate cardiomegaly.
3. 2.8 cm mass in the anterior mediastinum. Diagnostic possibilities are (1) a thymic epithelial tumor, (2) lymphoma, (3) a germ cell tumor, or (4) a complex cyst.
4. Mild subpleural scarring in the lower lobes of the lungs.
5. Small hiatal hernia.
6. Severe multilevel thoracic discogenic degenerative disease and moderately exaggerated thoracic kyphosis.
Total time spent today was 55 minutes for this encounter. Time includes reviewing laboratory test/imaging results, reviewing pertinent medical records, obtaining and reviewing medical history, performing an appropriate exam, ordering medications,
tests and procedures. Time also includes documentation of this encounter, coordinating patient care and communicating with other healthcare professionals. Total time does not include separately billed tests performed on this date of service.
--- NOTE | 2023-12-22 09:52 | PTOTSP ---
ST Evaluation
Oropharyngeal function appears WFL at the bedside. Known esophageal impairment reported repeat dilations in the past; appears managed with strategies, rx
Pt received awake/alert with daughter present at the bedside. Sitting upright in bed pt self adminstered pills (multiple) followed with sip of water by straw - no overt s/sx of aspiration observed. Regular solids; demo grossly functional mastication
and minimal diffuse oral residuals which were cleared with liquid chaser. Pt report occasional globus sensation has h/o esophageal dilations most recent dilation was ~6-7 years ago and underwent repeat dilations prior to that. Does not feel
esophageal dysphagia has worsened. Advised use of compensatory strategies: small bites, use of moistening agents, small sips, and cyclic ingestion of solids/liquids t/o meal. Takes PPI per daughter (omeprazole)
Recommendations
1. Regular solids/thin liquids
2. Aspiration and MARIMAR/reflux precautions
3. Small bites, small sips, alternate liquids/solids and slow rate of intake
4. Meds oral per pt preference and RN discretion
5. Advised follow up with GI if worsening esophageal s/sx
6. No further acute ST tx indicated
[2023-12-22 15:13] LABS: APTT 122.5 Sec (23.4-35.0)
--- NOTE | 2023-12-22 16:13 | W.PN.HOSP.TC ---
Today's Communication/Plan
-
Continue Heparin Drip DVT/PE protocol
Low Sodium diet
Continue telemetry monitoring
Appreciate Pulmonary and Cardiology
Assessment / Plan
Assessment / Plan
Physical Exam
General: Not in acute distress
HEENT: Normocephalic
Respiratory: CTAB
Cardiac: S1/S2 and Regular Rhythm; Bradycardia
GI: Soft, Non Tender, Non Distended, Normal Bowel Sounds
Musculoskeletal: No Cyanosis. Edema, Left Lower Extremity (Bilateral legs +1 left greater than right) and Edema, Right Lower Extremity (Bilateral legs +1 left greater than right)
Skin: Warm and Dry
Neuro: AAO x 3. Nonfocal/grossly intact.
Psych: Calm
Assessment/Plan
#Acute PE right upper lobe
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
-Continue IV heparin drip, DVT/PE protocol
-Consulted pulmonary, appreciate their evaluation and recommendations
-2D echo pending
-Venous Doppler bilateral legs showed no DVT
#Moderate Cardiomegaly on CT Chest
#Concern for Slow A-Fib on athletic monitor
-Consulted cardiology, appreciate evaluation and recommendations
#Multilevel thoracic DDD/thoracic kyphosis
#DVT hx right lower extremity 1983
#Meningioma removal x2-no residual meningioma per family at bedside at [facility]
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
with post hemorrhage removal after dvt treatment with heparin 19 years ago
#HTN
-Continue patient's home medications
-Low sodium diet
HLD
Hypothyroidism/ thyroid nodules
-Continue levothyroxine
Anxiety
-
OA
Diverticulosis/diverticulitis
Hiatal hernia
Constipation
Right breast CA with radiation lumpectomy 16 years ago
Former smoker quit 1980
DVT prophylaxis: Heparin drip
Code Status: DNR
Anticipated Discharge: 24 - 48 hours
Subjective/Interval History
-
Date of Service: December 22, 2023
Patient was seen and examined. She reported no new symptoms or complaints at the time she was seen, but still with some shortness of breath.
Objective Data
-
Labs:
Laboratory Results
12/22/23 12/22/23 12/22/23
06:04 14:49 21:15
WBC 6.8
Hgb 12.6
Hct 36.8 L
Plt Count 250
PT 14.0
INR 1.10
APTT > 200.0 H* 122.5 H Pending
Sodium 140
Potassium 3.7
Chloride 103
Carbon Dioxide 27
BUN 16
Creatinine 0.9
Glucose 126 H
Calcium 10.5 H
Vital Signs:
Vital Signs
Temp Pulse Resp BP Pulse Ox
98.4 F 58 16 143/74 95
12/22/23 15:02 12/22/23 15:02 12/22/23 15:02 12/22/23 15:02 12/22/23 15:02
I&O
12/21/23 12/22/23 12/23/23
06:59 06:59 06:59
Intake Total 120 / 120
Balance 120 / 120
--- NOTE | 2023-12-22 16:29 | PTCARENOTE ---
pt with AAx3 pleasant. pt denies jania pain. PT with expressive aphasia, slow speech but able to make all needs known. PT on IV heparin for PE, PT on heparin IV: PTT at 7 am was > 200, placed onhold 2 hours and reduced to 1200 units. then PTT at
1500 was 122.5 and rate was reduced to 1000 units. Next PTT is at 2115. No signs of bleeding, pt received education on heparin and verbalized an understanding. Lungs course in bases decreased throughout, IS given and at bedside, 98% on room air,
no cough no sob noted. THIS am BP 181/87 and HR 38-42. There were hold parameters on her meds . removed HR hold parameters and told me to give her medications to her. Her HR is currently ranging from 60-70 with regular PAC every other beat.
Pt denies any CP or palpitations. pt with harsh systolic murmru and BLE edema. Speech consult obtained first thing in AM and pt was able to swallow all of her medications without any difficulty, whole and at same time. Pt eats 100% of meals,.
PT is a one assist into the bathroom for safety and has beenvoiding without any difficulty. Family is at bedisde and will continue to montior
[2023-12-22] MEDS: CELEXA 20 MG PO (20:28)
[2023-12-22 22:43] LABS: APTT 95.3 Sec (23.4-35.0)
[2023-12-22] MEDS: APRESOLINE 5 MG IV (23:32)
[2023-12-23] VITALS (9 sets, daily range): BP systolic 134–189; BP diastolic 67–84
--- NOTE | 2023-12-23 00:14 | CONSULT.CT ---
Patient History
Physicians
Family Physician: Carisa Byrne MD
Outpatient Chinese Instructor: Outpatient Pulmonoligist: Sienna Fritz MD
Inpatient Chinese Instructor: Inpatient Quality Assurance Manager: Richard Rodriguez MD
History of Present Illness
83 y/o pleasant woman who is a resident of [facility] living with her , who suffers from expressive aphasia d/t complications from prior meningioma (history obtained from pt and medical records). Pt tells me she has been having CAMPBELL x 5
months and has been following up with Dr. Reji Fritz of Pulmonary. Pt was referred to -[facility] on 12/21/23 for further evaluation after her outpt. blood work yielded an elevated D-Dimer of 2.44. A CTA of the chest was obtained on 12/20 showing:
SMALL ACUTE PULMONARY EMBOLI in the RIGHT UPPER LOBE, 2.8 cm mass in the anterior mediastinum (diagnostic possibilities are (1) a thymic epithelial tumor, (2) lymphoma, (3) a germ cell tumor, or (4) a complex cyst), moderate cardiomegaly, mild
subpleural scarring in the lower lobes of the lungs, small hiatal hernia, and severe multilevel thoracic discogenic degenerative disease and moderately exaggerated thoracic kyphosis. Pt was admitted to Hospital Service and started on heparin gtt.
Pulmonary consult is concerned about the 2.0 x 2.1 x 2.8 cm anterior mediastinal mass and consulted CT Surgery for our input, as pt will eventually require NOAC/DOAC management in the coming days.
Past Medical History
-Small RUL Pulmonary Embolism
-Anterior mediastinal mass (2.8 cm)
-Progressive CAMPBELL
-Expressive Aphasia
-Physical deconditioning
-Osteoporosis
-Kyphosis
-Hx Meningioma S/P resection 1979, 1987
-Hx Breast Ca S/P radiation and lumpectomy, 2012
-Former tobacco use during college years, quit 1983, 2-3 cigarettes socially
-Hx PNA
-HTN
-HLD
-Class 1 obesity (BMI 30.3)
-Hypothyroidism
-GERD/Hiatal hernia
-Bradycardia
-Cardiomegaly
-Hx RLE DVT
Past Surgical History
-S/p Partial thyroidectomy, 9,1971
-S/p cataracts
-S/P tonsillectomy
-S/P Meningioma resection, 1979, 1987
-S/P Lumpectomy/radiation, 2012
-S/P Resection of Lipoma
-S/P Lymph node resection
-S/p Total hysterectomy/BSO
-S/p TKA
-S/P Release of trigger finger
Dental History
Up to date
Family History
Mother: at Age
Father: at Age
Family Medical History: Cancer (Breast CA, Prostate CA, Thyroid CA, Colon CA)
Social History
Alcohol: None
Drug: None
Tobacco: Former Smoker
Personal:
Living: With Spouse
Employment: Retired
Allergies
Allergy/AdvReac Type Severity Reaction Status Date / Time
aminophylline Allergy Rash Verified 06/17/21 15:48
amlodipine Allergy Swelling Verified 06/17/21 15:48
amlodipine besylate Allergy edema Verified 06/17/21 15:48
[From Norvasc]
atenolol Allergy 'felt Verified 06/17/21 15:48
lousy'
codeine Allergy constipatio Verified 06/17/21 15:48
n
cortisone Allergy Rash Verified 06/17/21 15:48
diltiazem Allergy edema Verified 06/17/21 15:48
dipyridamole Allergy Rash Verified 06/17/21 15:48
[From Persantine]
irbesartan [From Avapro] Allergy palpitation Verified 06/17/21 15:48
s
olmesartan medoxomil Allergy dizziness Verified 06/17/21 15:48
[From Benicar]
Penicillins Allergy Rash Verified 06/17/21 15:48
phenytoin sodium Allergy Rash Verified 06/17/21 15:48
[From Dilantin]
phenytoin sodium extended Allergy Rash Verified 06/17/21 15:48
[From Dilantin]
prednisone Allergy Rash Verified 06/17/21 15:48
shellfish derived Allergy Welts Verified 06/17/21 15:48
simvastatin [From Zocor] Allergy muscle pain Verified 06/17/21 15:48
Sulfa (Sulfonamide Allergy Unknown Verified 06/17/21 15:48
Antibiotics)
Home Medications
�Medication �Instructions �Recorded �Confirmed �Type
ascorbic acid (vitamin C) 500 mg 500 mg PO DAILY Supplement 03/07/16 12/22/23 History
tablet (Vitamin C)
cholecalciferol (vitamin D3) 50 2,000 unit PO DAILY PRN unsure 03/07/16 12/22/23 History
mcg (2,000 unit) tablet
fexofenadine 180 mg tablet 180 mg PO DAILY Allergies 03/07/16 12/22/23 History
(Feli)
furosemide 20 mg tablet 20 mg PO DAILY Fluid 03/07/16 12/22/23 History
Retention/Swelling
levothyroxine 150 mcg tablet 150 mcg PO DAILY AT 0700 Thyroid 03/07/16 12/22/23 History
magnesium oxide 400 mg PO DAILY Supplement 03/07/16 12/22/23 History
nifedipine 30 mg tablet,extended 30 mg PO DAILY Blood Pressure 03/07/16 12/22/23 History
release 24 hr (Procardia XL)
omeprazole 40 mg capsule,delayed 40 mg PO BID Gastrointestinal Issue 03/07/16 12/22/23 History
release
rosuvastatin 5 mg tablet (Crestor) 5 mg PO DAILY High Cholesterol 03/07/16 12/22/23 History
B12 500 mcg PO DAILY Supplement 12/21/23 12/22/23 History
Caltrate 600 plus D 1 tab PO DAILY Supplement 12/21/23 12/22/23 History
Celebrex 200 mg PO DAILY PRN pain 12/21/23 12/22/23 History
Vitamin C 500 mg PO DAILY Supplement 12/21/23 12/22/23 History
cholecalciferol (vitamin D3) 1,000 mg PO DAILY Supplement 12/21/23 12/22/23 History
folic acid 1 mg PO DAILY Supplement 12/21/23 12/22/23 History
valsartan 160 mg PO DAILY Blood Pressure 12/21/23 12/22/23 History
acetaminophen 325 mg tablet 500 mg PO Q6H PRN pain 12/22/23 12/22/23 History
citalopram 10 mg tablet 20 mg PO HS Depression 12/22/23 12/22/23 History
Review of Systems
-
Respiratory: Reports SOB and CAMPBELL
Physical Exam
Vital Signs
Temp 98.1 F 12/22/23 23:00
Temp route: Oral 12/22/23 23:00
Pulse 43 12/22/23 22:39
Rhythm: Sinus bradycardia 12/22/23 10:36
With- Bundle Branch Block Confi, Sinus bradycardia 12/22/23 01:50
Resp Rate 16 12/22/23 23:00
Blood pressure 184/76 12/22/23 22:39
Blood pressure extremity used: Left upper arm 12/22/23 19:00
Position: Lying 12/22/23 22:39
MAP (cuff-Justyn Monitor) 105 12/21/23 23:00
SaO2 96 12/22/23 23:00
Oxygen Mode of Delivery Room air 12/22/23 23:00
Can the patient verbally communicate their pain? Yes 12/22/23 01:50
Actual Weight 80.15 kg 12/22/23 01:16
Body Mass Index (BMI) 30.4 12/22/23 01:16
Labs
PT 14.0 Sec (11.4-14.6) 12/22/23 06:04
APTT 95.3 Sec (23.4-35.0) H 12/22/23 22:27
Exam
General: Well Nourished and No Apparent Distress (on RA)
HEENT: Normocephalic, Moist Mucous Membranes, Atraumatic, PERRLA and EOMI
Neck: Trachea Midline
Respiratory: Other (decrease BS on right)
Cardiac: S1/S2 and Regular Rhythm (sinus bradycardia 50's)
GI: Soft, Non Tender, Non Distended and Normal Bowel Sounds
Rectal: Deferred by Provider
Skin: Warm
Neuro: Awake, Alert, Oriented, AO x 3 and Other (with expressive aphasia, slight left facial droop)
Extremities: Other (+trace edema)
Lymph: No Lymphadenopathy
Psych: Calm
Assessment / Plan
-
Assessment:
-Small RUL Pulmonary Embolism
-Anterior mediastinal mass (2.8 cm)
-Progressive CAMPBELL
-Expressive Aphasia
-Physical deconditioning
-Osteoporosis
-Kyphosis
-Hx Meningioma S/P resection 1987
-Hx Breast Ca S/P radiation and lumpectomy, 2012
-Former tobacco use during college years, quit 1984, 2-3 cigarettes socially
-Hx PNA
-HTN
-HLD
-Class 1 obesity (BMI 30.3)
-Hypothyroidism
-GERD/Hiatal hernia
-Bradycardia
-Cardiomegaly
-Hx RLE DVT
-S/p Partial thyroidectomy, 1959,1971
-S/p cataracts
-S/P tonsillectomy
-S/P Meningioma resection, 1987
-S/P Lumpectomy/radiation, 2012
-S/P Resection of Lipoma
-S/P Lymph node resection
-S/p Total hysterectomy/BSO
-S/p TKA
-S/P Release of trigger finger
Plan:
-CT Surgeon to review imaging and determine if biopsy of 2.8 cm anterior mediastinal mass or any surgical intervention is warranted
-Cont. current medical management per primary team
[2023-12-23] MEDS: TYLENOL PO ×2 (01:32→17:01)
[2023-12-23] MEDS: APRESOLINE 5 MG IV ×2 (03:37→22:48)
[2023-12-23 04:39] LABS: Hematocrit 36.4 % (37.0-47.0); Hemoglobin 12.7 g/dL (12.0-16.0); Mean Corp Hgb Conc. 34.9 g/dL (33.0-37.0); Mean Corpuscular Hgb 31.9 pg (27.0-31.0); Mean Corpuscular Volume 91.5 fL (81.0-99.0); Mean Platelet Volume 10.1 fL (7.4-10.4); Platelet Count 228 10^3/uL (130-400); Red Blood Cell Count 3.98 10^6/uL (4.20-5.40); Red Cell Dist. Width 13.2 % (11.5-14.5); White Blood Cell Count 5.4 10^3/uL (4.8-10.8)
[2023-12-23 04:51] LABS: APTT 108.1 Sec (23.4-35.0)
[2023-12-23 05:28] LABS: Blood Urea Nitrogen 19 mg/dl (7-17); Calcium 10.7 mg/dl (8.4-10.2); Carbon Dioxide 25 mmol/L (22-30); Chloride 106 mmol/L (98-107); Estimated Creatinine Clearance 47 ml/min; Glucose 139 mg/dl (70-99); Potassium 3.5 mmol/L (3.5-5.1); Sodium 141 mmol/L (135-145); eGFR > 60.00
[2023-12-23] MEDS: SYNTHROID 150 MCG PO (06:07)
[2023-12-23] MEDS: TYLENOL 500 MG PO ×2 (08:41→12:57)
[2023-12-23] MEDS: CRESTOR 5 MG PO (08:42)
[2023-12-23] MEDS: OSCAL 500 + D 500 MG PO (08:42)
[2023-12-23] MEDS: DIOVAN 160 MG PO (08:42)
[2023-12-23] MEDS: PROTONIX 40 MG PO ×2 (08:42→20:33)
[2023-12-23] MEDS: VITAMIN C 500 MG PO (08:43)
[2023-12-23] MEDS: PROCARDIA XL (EXTENDED RELEASE) 30 MG PO (08:43)
[2023-12-23] MEDS: CLARITIN 10 MG PO (08:43)
[2023-12-23] MEDS: MAGNESIUM OXIDE 500 MG PO (08:43)
[2023-12-23] MEDS: FOLVITE 1 MG PO (08:43)
[2023-12-23] MEDS: VITAMIN D3 (cholecalciferol) 50 MCG PO (08:43)
[2023-12-23] MEDS: LASIX 20 MG PO (08:43)
[2023-12-23] MEDS: KCL 40 MEQ PO (08:58)
[2023-12-23 09:21] LABS: Albumin 3.8 g/dl (3.5-5.0); Magnesium 2.3 mg/dl (1.6-2.3)
--- NOTE | 2023-12-23 09:31 | CON.CAR ---
Consultation
Consultation Request
Date/Time Consultation Requested: 12/22/23 7:00pm
Date/Time Consultation Performed: 12/23/23 9:00AM
Requesting Provider: Dr Mckenzie
Performing Provider: Dr Rasmussen
Reason for Consultation: possible afib
Medical History
-
Chief Complaint: sob
History of Present Illness:
83-year-old female with a past medical history of meningioma with aphasia, GERD, hypothyroidism, hypertension, hyperlipidemia, history of breast cancer, history of postoperative RLE DVT, history pneumonia, and osteoporosis who presents from
Pulmonary office with worsening SOB. She has a history of a postoperative right lower extremity DVT. A D-dimer was found to be abnormal at 2.4 and CTA chest showed a small acute pulmonary embolism in the right upper lobe in addition to a 2.8 cm
mass in the anterior mediastinum. She has moderate expressive aphasia from her meningioma. She denies any current chest pains. She does have shortness of breath and fatigue. She denies any palpitations, dizziness, or syncope. She has no
previous cardiac history. She has no falls. She was also found to have a 2.8 cm mediastinal mass.
Past Medical History
Past Medical History: GERD, HTN, Hypercholesterolemia, Hypothyroidism and Other (Meningioma s/p resection with expressive aphasia, history of DVT, osteoporosis)
Past Surgical History: Other (Hysterectomy 1987, right breast lumpectomy 2012, right knee replacement 2015, meningioma resection)
Social History
Tobacco: Non-Smoker
Alcohol: None
Drug: None
Living: [facility]
Family History
Family History: Hypertension
Allergies / Home Medications
Allergy/AdvReac Type Severity Reaction Status Date / Time
aminophylline Allergy Rash Verified 06/17/21 15:48
amlodipine Allergy Swelling Verified 06/17/21 15:48
amlodipine besylate Allergy edema Verified 06/17/21 15:48
[From [facility]]
atenolol Allergy 'felt Verified 06/17/21 15:48
lousy'
codeine Allergy constipatio Verified 06/17/21 15:48
n
cortisone Allergy Rash Verified 06/17/21 15:48
diltiazem Allergy edema Verified 06/17/21 15:48
dipyridamole Allergy Rash Verified 06/17/21 15:48
[From Persantine]
irbesartan [From Avapro] Allergy palpitation Verified 06/17/21 15:48
s
olmesartan medoxomil Allergy dizziness Verified 06/17/21 15:48
[From Benicar]
Penicillins Allergy Rash Verified 06/17/21 15:48
phenytoin sodium Allergy Rash Verified 06/17/21 15:48
[From Dilantin]
phenytoin sodium extended Allergy Rash Verified 06/17/21 15:48
[From Dilantin]
prednisone Allergy Rash Verified 06/17/21 15:48
shellfish derived Allergy Welts Verified 06/17/21 15:48
simvastatin [From Zocor] Allergy muscle pain Verified 06/17/21 15:48
Sulfa (Sulfonamide Allergy Unknown Verified 06/17/21 15:48
Antibiotics)
�Medication �Instructions �Recorded �Confirmed �Type
ascorbic acid (vitamin C) 500 mg 500 mg PO DAILY Supplement 03/07/16 12/22/23 History
tablet (Vitamin C)
cholecalciferol (vitamin D3) 50 2,000 unit PO DAILY PRN unsure 03/07/16 12/22/23 History
mcg (2,000 unit) tablet
fexofenadine 180 mg tablet 180 mg PO DAILY Allergies 03/07/16 12/22/23 History
(Feli)
furosemide 20 mg tablet 20 mg PO DAILY Fluid 03/07/16 12/22/23 History
Retention/Swelling
levothyroxine 150 mcg tablet 150 mcg PO DAILY AT 0700 Thyroid 03/07/16 12/22/23 History
magnesium oxide 400 mg PO DAILY Supplement 03/07/16 12/22/23 History
nifedipine 30 mg tablet,extended 30 mg PO DAILY Blood Pressure 03/07/16 12/22/23 History
release 24 hr (Procardia XL)
omeprazole 40 mg capsule,delayed 40 mg PO BID Gastrointestinal Issue 03/07/16 12/22/23 History
release
rosuvastatin 5 mg tablet (Crestor) 5 mg PO DAILY High Cholesterol 03/07/16 12/22/23 History
B12 500 mcg PO DAILY Supplement 12/21/23 12/22/23 History
Caltrate 600 plus D 1 tab PO DAILY Supplement 12/21/23 12/22/23 History
Celebrex 200 mg PO DAILY PRN pain 12/21/23 12/22/23 History
Vitamin C 500 mg PO DAILY Supplement 12/21/23 12/22/23 History
cholecalciferol (vitamin D3) 1,000 mg PO DAILY Supplement 12/21/23 12/22/23 History
folic acid 1 mg PO DAILY Supplement 12/21/23 12/22/23 History
valsartan 160 mg PO DAILY Blood Pressure 12/21/23 12/22/23 History
acetaminophen 325 mg tablet 500 mg PO Q6H PRN pain 12/22/23 12/22/23 History
citalopram 10 mg tablet 20 mg PO HS Depression 12/22/23 12/22/23 History
Review of Systems
-
History Source: Patient and Physician
Constitutional: No Symptoms
EENT: No Symptoms
Respiratory: Cough and Trouble Breathing
Cardiac: No Symptoms
Abdomen/GI: No Symptoms
: No Symptoms
Musculoskeletal: No Symptoms
Skin: No Symptoms
Neurological: Other (Expressive aphasia)
Endocrine: No Symptoms
Hematologic/Lymphatic: No Symptoms
Physical Exam
Vital Signs
Temp Pulse Resp BP Pulse Ox
97.9 F 45 16 167/67 95
12/23/23 07:49 12/23/23 07:49 12/23/23 07:49 12/23/23 07:49 12/23/23 07:49
Lab Results
12/23/23 04:31
12/23/23 04:31
Physical Exam
General: Well Developed and Well Nourished
HEENT: Normocephalic and Anicteric
Respiratory: Clear and Non Labored Respirations
Cardiac: S1/S2, Regular Rhythm (With ectopy) and Murmur (04/14 syst LSB)
GI: Soft and Non Tender
Musculoskeletal: No Cyanosis and No Edema
Skin: Warm and Dry
Neuro: Awake and Other (Expressive aphasia)
Psych: Calm
Impression / Plan
-
Impression:
Shortness of breath/dyspnea on exertion
Sinus rhythm with frequent PACs
Submassive pulmonary embolism without right heart strain
2.8 cm incidental mass seen in the anterior mediastinum seen on CTA chest from 12/21/2023
Hypothyroidism
GERD
History of postoperative right lower extremity DVT
History of meningioma s/p resection with aphasia
PLan:
We were asked to see her to comment on possible atrial fibrillation found on the glass blower. I reviewed her telemetry. There is sinus rhythm with PACs but no clear atrial fibrillation.
Check echocardiogram. We will continue to follow her on telemetry.
She needs full anticoagulation with pulmonary embolism as well.
Blood pressure has been elevated. Continue valsartan, Lasix, and will increase nifedipine to 60 mg daily.
Her resting heart rate is in the 40s and 50s so would hold off on AV laury blockers.
Data Reviewed
-
EKG: Report Reviewed by me
Radiology: Report Reviewed by me
CT Scan: Report Reviewed by me
Labs: Labs Reviewed by me
Old Records: Reviewed
--- NOTE | 2023-12-23 09:35 | W.PN.PUL3 ---
Today's Communication / Plan
-
Heparin drip
Follow-up cardiothoracic surgery recommendations
If no mediastinal mass biopsy is to be done while inpatient, recommend transition to Eliquis tomorrow
CM consult to assure that Eliquis is affordable
Okay to get up OOB as tolerated
PT/OT
Assessment
-
Assessment: 83-year-old female with a past medical history of GERD, hypothyroidism, hypertension, hyperlipidemia, history of breast cancer, history of postoperative RLE DVT, history pneumonia, and osteoporosis who presents with worsening SOB.
Patient follows with us in the office with last visit on 12/06/[address] Fritz. Patient has shortness of breath with activity and 6 MWT at that office visit showed she had homar SpO2 of 93% and she was able to walk 850 feet. PFT did not show
any evidence of obstructive or restrictive lung disease, with mild gas exchange capacity defect which was normal when accounting for alveolar volume involving gas exchange (DLco: 64%; DLco/VA: 74%).. She is a former smoker smoking minimally for 4
years and quit in 1983. She has a history of a postoperative right lower extremity DVT. She was also felt to have physical deconditioning. Physical therapy was recommended to her by her PCP as well as speech therapy. At this last office visit,
D-dimer was recommended with plans for CTA chest if elevated. D-dimer was found to be elevated at 2.44 so she went to the hospital for further evaluation. Initial vitals showed she was afebrile to 98.2 �F, bradycardic to 44, breathing at 18
breaths/minute, BP 170/93 and saturating 99% on room air. Labs showed normal WBC at 6.2, Hb 12.6, and D-dimer 1.3. CTA chest showed a small acute pulmonary embolism in the right upper lobe in addition to a 2.8 cm mass in the anterior mediastinum.
Patient was started on IV heparin, and admitted to the hospitalist service for further care. Pulmonary now consulted for additional management/recommendations.
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
deconditioning
Impression:
#Submassive pulmonary embolism without right heart strain
#2.8 cm incidental mass seen in the anterior mediastinum seen on CTA chest from 12/21/2023
#Hypothyroidism
#Reflux esophagitis
#Allergic rhinitis
#History of postoperative right lower extremity DVT
#Osteoporosis
#Expressive aphasia
#History of meningioma s/p resection
#Former Hx of light tobacco use (2-3 cigarettes per day for ~4 years - quit 1983)
Plan:
- Continue with systemic parenteral anticoagulation with heparin drip
- Will continue with heparin drip for at least 24-48 hours before transitioning to NOAC; would also wait until cardiothoracic surgery evaluates patient in case mediastinal mass biopsy is needed
- If no mediastinal biopsy is required while inpatient, then rec'd transitioning to Eliquis tomorrow. Consult case management to assure that Eliquis is affordable
- Check 2D echo
- Lower extremity duplex negative for bilateral lower extremity DVT
- Maintain SpO2 >90-94% with supplemental O2 as needed
- Incentive spirometer
- Cardiothoracic surgery consulted regarding incidental 2.8 cm anterior mediastinal mass; recommendations appreciated
- Replete electrolytes with K>4, Mg>2
- Maintain euglycemia with goal BG >100 and <180
- prn nebulized bronchodilators - pt not currently bronchospastic
- DVT ppx
Pulmonary service will continue to follow along. Patient was advised to follow-up with Dr. Fritz as an outpatient following discharge.
Data:
CTA Chest 12/21/2023:
1. SMALL ACUTE PULMONARY EMBOLI in the RIGHT UPPER LOBE.
2. Moderate cardiomegaly.
3. 2.8 cm mass in the anterior mediastinum. Diagnostic possibilities are (1) a thymic epithelial tumor, (2) lymphoma, (3) a germ cell tumor, or (4) a complex cyst.
4. Mild subpleural scarring in the lower lobes of the lungs.
5. Small hiatal hernia.
6. Severe multilevel thoracic discogenic degenerative disease and moderately exaggerated thoracic kyphosis.
Total time spent today was 35 minutes for this encounter. Time includes reviewing laboratory test/imaging results, reviewing pertinent medical records, obtaining and reviewing medical history, performing an appropriate exam, ordering medications,
tests and procedures. Time also includes documentation of this encounter, coordinating patient care and communicating with other healthcare professionals. Total time does not include separately billed tests performed on this date of service.
Subjective Data
-
Date of Service:
Date of Service: December 23, 2023
Chief Complaint: Pulmonary Follow Up
Subjective:
Patient seen and evaluated today at bedside. Remains on heparin drip. Currently on room air breathing comfortably. Saturating 96%. Afebrile overnight. No acute events reported from overnight. She is ambulating without reports of dyspnea, as
per bedside RN.
Review of Systems
General: Other (Negative unless mentioned above)
Objective Data
Data Reviewed
Vital Signs / I&O / Oxygen:
Vital Signs
Temp Pulse Resp BP Pulse Ox
97.9 F 45 16 167/67 95
12/23/23 07:49 12/23/23 07:49 12/23/23 07:49 12/23/23 07:49 12/23/23 07:49
Intake and Output
12/22/23 12/23/23 12/24/23
06:59 06:59 06:59
Intake Total 120 / 120 360 / 360
Balance 120 / 120 360 / 360
SaO2 95
Physical Exam
General: Respiratory Distress (negative), Comfortable and Chills (negative)
HEENT: Normocephalic and Anicteric
Cardiovascular: Peripheral Edema (negative), Other (Distant heart sounds) and Other (Normal heart rate)
Respiratory: Wheeze (negative), Rhonchi (negative) and Other (Coarse breath sounds heard bilaterally)
GI: Soft, Non Distended, Non Tender and Normal Bowel Sounds
Neurology: Awake, Alert and Tremors (negative)
Skin: Warm, Dry and Jaundice (negative)
Labs/Micro/Reports
Lab Data
12/23/23 04:31
12/23/23 04:31
Laboratory Results
12/22/23 12/22/23 12/23/23
14:49 22:27 04:31
APTT 122.5 H 95.3 H 108.1 H
--- NOTE | 2023-12-23 11:04 | W.PN.UPDATE ---
Update Note
Progress Note Update
Full consult on chart
Given her admission for Acute PE, significant comorbidites and age, I would continue treating her acute condition.
Biopsy of mediastinal mass can be considered as outpt.
I will have Dr Isbell, who practices thoracic surgery, weigh in tomorrow.
--- NOTE | 2023-12-23 12:19 | W.PN.HOSP.TC ---
Today's Communication/Plan
-
Dr. Isbell to weigh in on chest mass tomorrow
Continue Heparin Drip
Appreciate pulmonary, cardiology and cardiothoracic surgery
Assessment / Plan
Assessment / Plan
Physical Exam
General: Not in acute distress
HEENT: Normocephalic
Respiratory: CTAB
Cardiac: S1/S2 and Regular Rhythm; Bradycardia
GI: Soft, Non Tender, Non Distended, Normal Bowel Sounds
Musculoskeletal: No Cyanosis. Edema, Left Lower Extremity (Bilateral legs +1 left greater than right) and Edema, Right Lower Extremity (Bilateral legs +1 left greater than right)
Skin: Warm and Dry
Neuro: AAO x 3. Nonfocal/grossly intact.
Psych: Calm
Assessment/Plan
#Acute PE right upper lobe
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
#History of postoperative right lower extremity DVT
-Continue IV heparin drip, DVT/PE protocol
-Consulted pulmonary, appreciate their evaluation and recommendations
-2D echo pending
-Venous Doppler bilateral legs showed no DVT
-Cardiothoracic surgery consulted, appreciate evaluation and recommendations -- Dr. Isbell to weigh in on 12/24/23
#Moderate Cardiomegaly on CT Chest
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
#Bradycardia
-Consulted cardiology, appreciate evaluation and recommendations: confirmed to be no A-Fib at this time
-Avoid AV tami blockers
#Mild Hypercalcemia
-IV Normal Saline for a total of 300 cc
-Careful with IV fluids given finding of cardiomegaly on CT Chest -- awaiting echo to assess EF and for any signs of CHF
#Multilevel thoracic DDD/thoracic kyphosis
#DVT hx right lower extremity 1983
#Meningioma removal x2-no residual meningioma per family at bedside at [facility]
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
with post hemorrhage removal after dvt treatment with heparin 19 years ago
#HTN
-Continue patient's home medications but increased Nifedipine to 60 mg daily
-Low sodium diet
-Avoid AV Tami Blockers
#Hyperlipidemia
#Hypothyroidism/ thyroid nodules
-Continue levothyroxine
Anxiety
-
OA
Diverticulosis/diverticulitis
Hiatal hernia
Constipation
Right breast CA with radiation lumpectomy 16 years ago
Former smoker quit 1980
DVT prophylaxis: Heparin drip
Code Status: DNR
Anticipated Discharge: 24 - 48 hours
Subjective/Interval History
-
Date of Service: December 23, 2023
Patient was seen and examined. She denied any new, significant symptoms or complaints.
Objective Data
-
Labs:
Laboratory Results
12/23/23
04:31
WBC 5.4
Hgb 12.7
Hct 36.4 L
Plt Count 228
APTT 108.1 H
Sodium 141
Potassium 3.5
Chloride 106
Carbon Dioxide 25
BUN 19 H
Creatinine 0.9
Glucose 139 H
Calcium 10.7 H
Vital Signs:
Vital Signs
Temp Pulse Resp BP Pulse Ox
97.9 F 71 16 163/82 96
12/23/23 11:03 12/23/23 11:03 12/23/23 11:03 12/23/23 11:03 12/23/23 11:03
I&O
12/22/23 12/23/23 12/24/23
06:59 06:59 06:59
Intake Total 120 / 120 360 / 360
Balance 120 / 120 360 / 360
[2023-12-23] MEDS: NSS 1000 IV (12:57)
--- NOTE | 2023-12-23 16:41 | CM ---
Reviewed chart, met with patient to obtain information for assessment. Patient had her and daughter, Laura [phone]. Patient stated that she lives at [facility] with her spouse. She reported being independent with all of her ADL,
self care, bathing and dressing. She uses a walker for long distances. Patient's spouse does all of the cooking, cleaning and laundry or they go to the dining [employer]azquez. Patient's spouse drives and can get to her appointments and does her shopping.
Patient has never had VN services.
She would be agreeable to SNF if indicated but would like to go to [facility].
Patient has a prescription plan and uses, [facility] in [place] for all of her medications.
Her PCP is, Yrn Nelson.
Plan: Case management will continue to follow and assist with discharge planning. SNF if indicated.
[2023-12-23] MEDS: HEPARIN 25000 UNITS/250 ML IV (20:34)
[2023-12-23] MEDS: CELEXA 20 MG PO (21:34)
[2023-12-24] MEDS: TYLENOL 500 MG PO ×3 (01:11→12:30)
[2023-12-24 01:22] VITALS: BP 178/83
[2023-12-24] MEDS: APRESOLINE 5 MG IV (01:51)
[2023-12-24 03:00] VITALS: BP 161/76
[2023-12-24 05:41] LABS: % Basophils 0.6 % (0-2); % Eosinophils 5.4 % (0-6); % Immature Granulocytes 0.2 % (0-0.5); % Lymphocytes 27.2 % (20.5-51.1); % Monocytes 9.1 % (1.7-9.3); % Neutrophils 57.5 % (42.2-75.2); Absolute Eosinophils 0.3 10^3/uL (0-0.7); Absolute Lymphocytes 1.4 10^3/uL (1.2-3.4); Absolute Monocytes 0.5 10^3/uL (0.1-0.6); Absolute Neutrophils 2.9 10^3/uL (1.4-6.5); Hematocrit 36.8 % (37.0-47.0); Hemoglobin 12.4 g/dL (12.0-16.0); Mean Corp Hgb Conc. 33.7 g/dL (33.0-37.0); Mean Corpuscular Hgb 31.6 pg (27.0-31.0); Mean Corpuscular Volume 93.9 fL (81.0-99.0); Mean Platelet Volume 10.4 fL (7.4-10.4); Nucleated Red Blood Cells % 0 %; Platelet Count 227 10^3/uL (130-400); Red Blood Cell Count 3.92 10^6/uL (4.20-5.40); Red Cell Dist. Width 13.6 % (11.5-14.5)
[2023-12-24] MEDS: SYNTHROID 150 MCG PO (05:42)
[2023-12-24 06:00] VITALS: BMI 30.7
[2023-12-24 06:09] LABS: Blood Urea Nitrogen 16 mg/dl (7-17); Calcium 10.7 mg/dl (8.4-10.2); Carbon Dioxide 25 mmol/L (22-30); Chloride 105 mmol/L (98-107); Estimated Creatinine Clearance 42 ml/min; Glucose 124 mg/dl (70-99); Potassium 4.1 mmol/L (3.5-5.1); Sodium 141 mmol/L (135-145); eGFR 55.21
[2023-12-24 08:01] VITALS: BP 182/83
[2023-12-24] MEDS: PROTONIX 40 MG PO (08:10)
[2023-12-24] MEDS: CRESTOR 5 MG PO (08:10)
[2023-12-24] MEDS: PROCARDIA XL (EXTENDED RELEASE) 60 MG PO (08:10)
[2023-12-24] MEDS: OSCAL 500 + D 500 MG PO (08:10)
[2023-12-24] MEDS: VITAMIN C 500 MG PO (08:10)
[2023-12-24] MEDS: CLARITIN 10 MG PO (08:10)
[2023-12-24] MEDS: VITAMIN D3 (cholecalciferol) 50 MCG PO (08:11)
[2023-12-24] MEDS: DIOVAN 160 MG PO (08:11)
[2023-12-24] MEDS: LASIX 20 MG PO (08:11)
[2023-12-24] MEDS: FOLVITE 1 MG PO (08:11)
[2023-12-24] MEDS: MAGNESIUM OXIDE 500 MG PO (08:11)
--- NOTE | 2023-12-24 09:10 | W.PN.HOSP.TC ---
Today's Communication/Plan
-
dc after seen by specialists and PT
Assessment / Plan
Assessment / Plan
Physical Exam
General: Not in acute distress
HEENT: Normocephalic
Respiratory: CTAB
Cardiac: S1/S2 and Regular Rhythm; Bradycardia
GI: Soft, Non Tender, Non Distended, Normal Bowel Sounds
Musculoskeletal: No Cyanosis. Edema, Left Lower Extremity (Bilateral legs +1 left greater than right) and Edema, Right Lower Extremity (Bilateral legs +1 left greater than right)
Skin: Warm and Dry
Neuro: AAO x 3. Nonfocal/grossly intact.
Psych: Calm
Assessment/Plan
#Acute PE right upper lobe
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
#History of postoperative right lower extremity DVT
-s/p 48 hours of IV heparin drip, DVT/PE protocol
-Consulted pulmonary, appreciate their evaluation and recommendations, ok to start oral AC
-2D echo 12/24/23: EF 60-65%, mild LVH, mild (29/17/2.3), mild-mod AI.
-Venous Doppler bilateral legs showed no DVT
-Cardiothoracic surgery consulted, appreciate evaluation and recommendations -- Dr. Isbell recommended OP follow up, ok to start oral AC.
#Moderate Cardiomegaly on CT Chest
#Sinus rhythm with PACs on awake overnight monitor
#Bradycardia
-Consulted cardiology, appreciate evaluation and recommendations: confirmed to be no A-Fib at this time
-Avoid AV tami blockers
#Mild Hypercalcemia, resolved.
#Multilevel thoracic DDD/thoracic kyphosis
#DVT hx right lower extremity 1983
#Meningioma removal x2-no residual meningioma per family at bedside at [facility]
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
with post hemorrhage removal after dvt treatment with heparin 19 years ago
#HTN
-Continue patient's home medications but increased Nifedipine to 90 mg daily
-Low sodium diet
-Avoid AV Tami Blockers
#Hyperlipidemia
#Hypothyroidism/ thyroid nodules
-Continue levothyroxine
Anxiety
-
OA
Diverticulosis/diverticulitis
Hiatal hernia
Constipation
Right breast CA with radiation lumpectomy 16 years ago
Former smoker quit 1980
DVT prophylaxis: Heparin drip
Code Status: DNR
Total discharge time spent to see the patient, examine the patient on the floor, review data and lab results, discuss discharge plan with patient, consultants, protective services case worker, nursing staff around 65 minutes
Anticipated Discharge: Today
Subjective/Interval History
-
Date of Service: December 24, 2023
No chest pain
No sob
No
Objective Data
-
Labs:
Laboratory Results
12/24/23 12/24/23
05:21 08:09
WBC 5.0
Hgb 12.4
Hct 36.8 L
Plt Count 227
APTT 98.0 H
Sodium 141
Potassium 4.1
Chloride 105
Carbon Dioxide 25
BUN 16
Creatinine 1.0
Glucose 124 H
Calcium 10.7 H
Vital Signs:
Vital Signs
Temp Pulse Resp BP Pulse Ox
97.8 F 50 17 182/83 95
12/24/23 08:01 12/24/23 08:11 12/24/23 08:01 12/24/23 08:11 12/24/23 08:01
I&O
12/23/23 12/24/23 12/25/23
06:59 06:59 06:59
Intake Total 360 / 360 1140 / 1140 240 / 240
Balance 360 / 360 1140 / 1140 240 / 240
--- NOTE | 2023-12-24 09:26 | W.PN.CARDCBS ---
Addendum entered and electronically signed by Ramsey Tuttle, 12/24/23 12:53:
I saw and examined the patient.
The Drug Enforcement Agent's note was reviewed and I agree with the note.
Comment:
Plan:
Rhythm is sinus with frequent PACs
Echo today shows EF preserved with mild and mild to mod AR. Continue outpt clinical monitoring
Stable cv status
Please recall if needed
Will arrange outpt cardiac follow up.
Original Note:
Today's Communication / Plan
-
-increase Valsartan dose for elevated BPs
-echo today
-CT surgery input pending
Impression / Plan
-
Impression:
Shortness of breath/dyspnea on exertion
Sinus rhythm with frequent PACs
Submassive pulmonary embolism without right heart strain
2.8 cm incidental mass seen in the anterior mediastinum seen on CTA chest from 12/21/2023
Hypothyroidism
GERD
History of postoperative right lower extremity DVT
History of meningioma s/p resection with aphasia
PLan:
remains in NSR with frequent PACs. Telemetry personally reviewed. HRs to 40s overnight. Pt asymptomatic. Hold AV laury blockers.
Echocardiogram done today 12/24/23, results pending.
She needs full anticoagulation with pulmonary embolism as well.
Blood pressure remains elevated, 160s-180s/70s-80s. Nifedipine uptitrated yesteday to 60 mg daily. Would increase Valsartan to [address] surgery eval for mediastinal mass
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
Subjective
Date of Service: December 24, 2023
denies SOB, palpitations, lightheadedness.
continues on Heparin gtt
BPs elevated
had echo this morning, pending
Objective
Labs:
12/24/23 05:21
12/24/23 05:21
Labs
Hgb 12.4 g/dL (12.0-16.0) 12/24/23 05:21
Hct 36.8 % (37.0-47.0) L 12/24/23 05:21
Plt Count 227 10^3/uL (130-400) 12/24/23 05:21
PT 14.0 Sec (11.4-14.6) 12/22/23 06:04
INR 1.10 12/22/23 06:04
APTT 98.0 Sec (23.4-35.0) H 12/24/23 08:09
Sodium 141 mmol/L (135-145) 12/24/23 05:21
Potassium 4.1 mmol/L (3.5-5.1) 12/24/23 05:21
BUN 16 mg/dl (7-17) 12/24/23 05:21
Creatinine 1.0 mg/dL (0.6-1.0) 12/24/23 05:21
Glucose 124 mg/dl (70-99) H 12/24/23 05:21
Vital Signs and I&O:
Vital Signs
Temp Pulse Resp BP Pulse Ox
97.8 F 50 17 182/83 95
12/24/23 08:01 12/24/23 08:11 12/24/23 08:01 12/24/23 08:11 12/24/23 08:01
Vital Signs
Temp Pulse Resp BP Pulse Ox
97.8 F 50 17 182/83 95
12/24/23 08:01 12/24/23 08:11 12/24/23 08:01 12/24/23 08:11 12/24/23 08:01
Intake & Output
12/22/23 12/23/23 12/24/23 12/25/23
06:59 06:59 06:59 06:59
Intake Total 120 / 120 360 / 360 1140 / 1140 240 / 240
Balance 120 / 120 360 / 360 1140 / 1140 240 / 240
Physical Exam
Physical Exam
GEN: No distress, awake, Ox3
HEENT: supple, anicteric, mmm
LUNGS: CTA, no wheezes/rales
CV: Reg, S1/S2, II/ syst LSB
ABD: soft, BS+, NT/ND
EXT: No edema
NEURO: Gross non-focal
SKIN: No rash
--- NOTE | 2023-12-24 10:51 | W.PN.UPDATE ---
Update Note
Progress Note Update
Patient was reviewed with Dr. Isbell. She is currently not a surgical candidate but patient can follow up outpatient. An appointment was made for 01/24/24 @[address]. [address] Surgery will sign off at this time.
[2023-12-24 11:35] VITALS: BP 138/72
--- NOTE | 2023-12-24 11:59 | W.PN.PUL3 ---
Today's Communication / Plan
-
Okay to transition to oral anticoagulants
Length of anticoagulation can be decided in the outpatient setting
Sign off
Assessment
-
Assessment: 83-year-old female with a past medical history of GERD, hypothyroidism, hypertension, hyperlipidemia, history of breast cancer, history of postoperative RLE DVT, history pneumonia, and osteoporosis who presents with worsening SOB.
Patient follows with us in the office with last visit on 12/06/[address] Fritz. Patient has shortness of breath with activity and 6 MWT at that office visit showed she had homar SpO2 of 93% and she was able to walk 850 feet. PFT did not show
any evidence of obstructive or restrictive lung disease, with mild gas exchange capacity defect which was normal when accounting for alveolar volume involving gas exchange (DLco: 64%; DLco/VA: 74%).. She is a former smoker smoking minimally for 4
years and quit in 1983. She has a history of a postoperative right lower extremity DVT. She was also felt to have physical deconditioning. Physical therapy was recommended to her by her PCP as well as speech therapy. At this last office visit,
D-dimer was recommended with plans for CTA chest if elevated. D-dimer was found to be elevated at 2.44 so she went to the hospital for further evaluation. Initial vitals showed she was afebrile to 98.2 �F, bradycardic to 44, breathing at 18
breaths/minute, BP 170/93 and saturating 99% on room air. Labs showed normal WBC at 6.2, Hb 12.6, and D-dimer 1.3. CTA chest showed a small acute pulmonary embolism in the right upper lobe in addition to a 2.8 cm mass in the anterior mediastinum.
Patient was started on IV heparin, and admitted to the hospitalist service for further care. Pulmonary now consulted for additional management/recommendations.
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
deconditioning
Impression:
# Acute Pulmonary embolism without right heart strain
#2.8 cm incidental mass seen in the anterior mediastinum seen on CTA chest from 12/21/2023
#Hypothyroidism
#Reflux esophagitis
#Allergic rhinitis
#History of postoperative right lower extremity DVT
#Osteoporosis
#Expressive aphasia
#History of meningioma s/p resection
#Former Hx of light tobacco use (2-3 cigarettes per day for ~4 years - quit 1983)
Plan:
- Continue with systemic parenteral anticoagulation with heparin drip.
- Will continue with heparin drip for at least 24-48 hours before transitioning to NOAC; okay to transition to oral anticoagulants.
-Length of anticoagulation can be decided later in the outpatient setting depending on mediastinal mass biopsy
-Echocardiogram noted: Normal RV function. LVH. Normal LVEF. Mild aortic stenosis. Mild to moderate AR.
-Lower extremity duplex negative for bilateral lower extremity DVT
- Maintain SpO2 >90-94% with supplemental O2 as needed
- Incentive spirometer
- Cardiothoracic surgery consulted regarding incidental 2.8 cm anterior mediastinal mass; at this point not surgical candidate. Recommended outpatient follow-up.
- prn nebulized bronchodilators - pt not currently bronchospastic
- DVT ppx
Dr. Anthony updated family at the bedside 12/24/2023
Patient was advised to follow-up with Dr. Fritz as an outpatient following discharge. No additional recommendation from the pulmonary perspective
Sign off

Data:
CTA Chest 12/21/2023:
1. SMALL ACUTE PULMONARY EMBOLI in the RIGHT UPPER LOBE.
2. Moderate cardiomegaly.
3. 2.8 cm mass in the anterior mediastinum. Diagnostic possibilities are (1) a thymic epithelial tumor, (2) lymphoma, (3) a germ cell tumor, or (4) a complex cyst.
4. Mild subpleural scarring in the lower lobes of the lungs.
5. Small hiatal hernia.
6. Severe multilevel thoracic discogenic degenerative disease and moderately exaggerated thoracic kyphosis.
Total time spent today was 35 minutes for this encounter. Time includes reviewing laboratory test/imaging results, reviewing pertinent medical records, obtaining and reviewing medical history, performing an appropriate exam, ordering medications,
tests and procedures. Time also includes documentation of this encounter, coordinating patient care and communicating with other healthcare professionals. Total time does not include separately billed tests performed on this date of service.
Subjective Data
-
Date of Service:
Date of Service: December 24, 2023
Chief Complaint: Pulmonary Follow Up
Subjective:
No new events from the pulmonary perspective
Remains hemodynamically stable
Review of Systems
Cardiopulmonary: Dyspnea (None at rest)
Objective Data
Data Reviewed
Vital Signs / I&O / Oxygen:
Vital Signs
Temp Pulse Resp BP Pulse Ox
97.5 F 53 20 138/72 95
12/24/23 11:35 12/24/23 11:35 12/24/23 11:35 12/24/23 11:35 12/24/23 11:35
Intake and Output
12/23/23 12/24/23 12/25/23
06:59 06:59 06:59
Intake Total 360 / 360 1140 / 1140 240 / 240
Balance 360 / 360 1140 / 1140 240 / 240
SaO2 95
Physical Exam
General: Respiratory Distress (negative), Comfortable and Chills (negative)
HEENT: Normocephalic and Anicteric
Cardiovascular: Peripheral Edema (negative), Other (Distant heart sounds) and Other (Normal heart rate)
Respiratory: Wheeze (negative), Rhonchi (negative) and Other (Coarse breath sounds heard bilaterally)
GI: Soft, Non Distended, Non Tender and Normal Bowel Sounds
Neurology: Awake, Alert and Tremors (negative)
Skin: Warm, Dry and Jaundice (negative)
Labs/Micro/Reports
Lab Data
12/24/23 05:21
12/24/23 05:21
Laboratory Results
12/24/23
08:09
APTT 98.0 H
[2023-12-24 12:05] VITALS: BP 131/68; PULSE 60; O2SAT 96
--- NOTE | 2023-12-24 12:51 | W.PN.UPDATE ---
Update Note
Progress Note Update
echo today 12/24/23: EF 60-65%, mild cLVH, mild (/.3), mild-mod AI. Results relayed to pt and family. Pt follows with Rafa Meyer at [facility] and will f/u there.
--- NOTE | 2023-12-24 13:11 | PTOTSP ---
pt currently demonstrates ability to complete simple ADLs, functional transfers, ambulation with supervision to no assistance. pt demonstrates decreased endurance with ambulation in hallway, will defer to PT for endurance training. no acute OT needs
identified at this time, will sign off.
--- NOTE | 2023-12-24 13:49 | CM ---
Patient seen at bedside with and daughters. Patient seen by PT/OT and now recommending home health. family asking for discharge today and plan to transport patient home. Please send referral to [facility] fax [phone]. CM will continue to
follow for discharge planning needs.
Plan; home with [facility]
--- NOTE | 2023-12-24 14:35 | W.DCSUMMARY ---
Discharge Summary
Discharge Data
Date of Admission: 12/21/23
Date of Discharge: 12/24/23
-
Pending Results: No
Hospital Course
83 years old female presented to the emergency room with shortness of breath. Patient was seen by her pulmonology doctor in the office and had blood work including D-dimer which came back elevated. She was sent to the emergency room for
evaluation of pulmonary embolism. Scan of the chest showed small acute pulmonary emboli in the right upper lobe with incidental finding and 2.8 cm anterior mediastinal mass. Patient was started on intravenous heparin. She was evaluated by
pulmonary doctor. Doppler ultrasound of lower extremity did not show deep venous thrombosis. She did not need oxygen. She was also evaluated by engraver steel plate. Her blood pressure was uncontrolled and nifedipine dose was increased. Echocardiogram
showed normal left ventricular size with ejection fraction of 60 to 65% with normal regional wall motion. Mild aortic stenosis, peak/mean gradients across the aortic valve are 29/17 mmHg with aortic valve area 2.3 cm2, mild to moderate aortic
regurgitation. Patient was evaluated by cardiothoracic surgery regarding the mediastinal mass, she was given an outpatient appointment for further management. Patient was placed on oral anticoagulation therapy. Eliquis was chosen. Patient was
evaluated by physical therapy, and recommended home health services. Patient remained hemodynamically stable and was discharged in a stable condition.
Discharge Plan
-
Patient Disposition: Home with Home Care
Discharge Diagnosis/Procedures: Acute Pulmonary embolism without right heart strain
2.8 cm incidental mass seen in the anterior mediastinum seen on CTA chest from 12/21/2023
Referrals:
Rafa Meyer MD [Non-Admitting Privileges] - (f/u with primary engraver steel plate, Dr Meyer, within 2 months)
Reji Fritz MD [Active] - in three to four weeks
Carisa Byrne MD [Family Provider] -
Sy Isbell MD [Active] - 01/24/24 9:00 am
Prescriptions:
New
nifedipine 90 mg tablet extended release
90 mg PO DAILY Qty: 30 0RF
Eliquis DVT-PE Treat 30D Start 5 mg (74 tabs) tablets,dose pack
See Rx Instructions .ROUTE .COMPLEX Qty: 74 0RF
Rx Instructions:
orally per package directions
Take 10 mg twice a day for 7 days then 5 mg twice a day afterwards.
Continued
fexofenadine [Feli] 180 MG tablet
180 mg PO DAILY
omeprazole 40 MG capsule,delayed release(DR/EC)
40 mg PO BID
levothyroxine 150 MCG tablet
150 mcg PO DAILY AT 0700
furosemide 20 MG tablet
20 mg PO DAILY
rosuvastatin [Crestor] 5 MG tablet
5 mg PO DAILY
cholecalciferol (vitamin D3) 2,000 UNITS tablet
2,000 unit PO DAILY PRN (Reason: unsure)
magnesium oxide 400 MG tablet
400 mg PO DAILY
B12
500 mcg PO DAILY
Caltrate 600 plus D
1 tab PO DAILY
Vitamin C
500 mg PO DAILY
folic acid
1 mg PO DAILY
valsartan
160 mg PO DAILY
acetaminophen 325 MG tablet
500 mg PO Q6H PRN (Reason: pain)
citalopram 10 MG tablet
20 mg PO HS
Discontinued
nifedipine [Procardia XL] 30 MG tablet extended release 24hr
30 mg PO DAILY
ascorbic acid (vitamin C) [Vitamin C] 500 MG tablet
500 mg PO DAILY
Celebrex
200 mg PO DAILY PRN (Reason: pain)
cholecalciferol (vitamin D3)
1,000 mg PO DAILY
Discharge Orders:
Discharge Patient (As Directed); Ordered 12/24/23
Ordered By: Catalino Grider
Discharge Date and Time
Discharge Date/Time: 12/24/23 14:27
Print Language: URDU
== END 2023-12-24 14:27 | disposition home health service (06) | DRG 176 ==
LOC: 3 WEST ACU 23:37
PROVIDERS: Clinical Nurse Specialist Family Health; Emergency Medicine; Hospitalist; ADMITTING PHYSICIAN Internal Medicine; ATTENDING PHYSICIAN Internal Medicine; CONSULT PHYSICIAN Internal Medicine Cardiovascular Disease; CONSULT PHYSICIAN Internal Medicine Critical Care Medicine; CONSULT PHYSICIAN Thoracic Surgery (Cardiothoracic Vascular Surgery); EMERGENCY PHYSICIAN Emergency Medicine; FAMILY PHYSICIAN Internal Medicine
DX: I26.99 Other pulmonary embolism without acute cor pulmonale (principal); R47.01 Aphasia; J45.909 Unspecified asthma, uncomplicated; I10 Essential (primary) hypertension; M19.90 Unspecified osteoarthritis, unspecified site; E78.00 Pure hypercholesterolemia, unspecified; E03.9 Hypothyroidism, unspecified; M51.34 Other intervertebral disc degeneration, thoracic region; M40.204 Unspecified kyphosis, thoracic region; I08.0 Rheumatic disorders of both mitral and aortic valves; E66.9 Obesity, unspecified; M81.0 Age-related osteoporosis without current pathological fracture; K21.00 Gastro-esophageal reflux disease with esophagitis, without bleeding; E04.2 Nontoxic multinodular goiter; F41.9 Anxiety disorder, unspecified; K44.9 Diaphragmatic hernia without obstruction or gangrene; K59.00 Constipation, unspecified; R29.90 Unspecified symptoms and signs involving the nervous system; R22.2 Localized swelling, mass and lump, trunk; E83.52 Hypercalcemia; Z66 Do not resuscitate; Z96.651 Presence of right artificial knee joint; Z87.891 Personal history of nicotine dependence; Z86.718 Personal history of other venous thrombosis and embolism; Z86.011 Personal history of benign neoplasm of the brain; Z79.890 Hormone replacement therapy; Z85.3 Personal history of malignant neoplasm of breast; Z92.3 Personal history of irradiation; Z90.710 Acquired absence of both cervix and uterus; Z87.19 Personal history of other diseases of the digestive system; Z80.0 Family history of malignant neoplasm of digestive organs; Z80.3 Family history of malignant neoplasm of breast; Z80.51 Family history of malignant neoplasm of kidney; Z80.8 Family history of malignant neoplasm of other organs or systems; Z80.7 Family history of other malignant neoplasms of lymphoid, hematopoietic and related tissues; Z80.42 Family history of malignant neoplasm of prostate; Z88.2 Allergy status to sulfonamides; Z88.8 Allergy status to other drugs, medicaments and biological substances; Z88.5 Allergy status to narcotic agent; Z88.0 Allergy status to penicillin; Z91.013 Allergy to seafood; Z79.1 Long term (current) use of non-steroidal anti-inflammatories (NSAID); Z87.01 Personal history of pneumonia (recurrent); Z68.30 Body mass index [BMI] 30.0-30.9, adult
CPT/HCPCS: 71275; 80048; 80053; 82040; 83735; 85025; 85027; 85379; 85610; 85730; 92610; 93005; 93306; 93970; 96365; 97162; 97165; 99291; Q9967

== ENCOUNTER → 2024-01-25 11:41 | Outpatient (REF) | payer OTHER, SELFPAY ==
[2024-01-25 16:16] LABS: ALT (SGPT) 30 U/L (0-35); AST (SGOT) 38 U/L (14-36); Albumin 3.6 g/dl (3.5-5.0); Alkaline Phosphatase 167 U/L (38-126); Blood Urea Nitrogen 16 mg/dl (7-17); Calcium 10.2 mg/dl (8.4-10.2); Carbon Dioxide 26 mmol/L (22-30); Chloride 96 mmol/L (98-107); Glucose 174 mg/dl (70-99); Sodium 132 mmol/L (135-145); Total Bilirubin 0.7 mg/dl (0.2-1.3); Total Protein 6.4 g/dl (6.3-8.2); eGFR > 60.00
[2024-01-25 16:18] LABS: D-Dimer 2.17 ug/mlFEU (0.00-0.50)
[2024-01-25 16:46] LABS: TSH 3.11 uIU/ml (0.47-4.68)
[2024-01-25 16:52] LABS: AFP Male/Tumor Marker 2.62 ng/ml
[2024-01-25 20:04] LABS: Free T4 1.44 ng/dl (0.78-2.19)
[2024-01-26 09:05] LABS: Glycohemoglobin (HgbA1c) 7.7 % (4.0-5.6)
[2024-01-28 07:15] LABS: HCG Male/Tumor Marker 1 IU/L (0-5)
== END ==
LOC: HWLAB 11:41
PROVIDERS: ATTENDING PHYSICIAN Thoracic Surgery (Cardiothoracic Vascular Surgery); FAMILY PHYSICIAN Internal Medicine; REFERRING PHYSICIAN Internal Medicine Critical Care Medicine
DX: J98.59 Other diseases of mediastinum, not elsewhere classified (principal); I26.99 Other pulmonary embolism without acute cor pulmonale
CPT/HCPCS: 36415; 80053; 82105; 83036; 83615; 83625; 84439; 84443; 84481; 84702; 85379; 86041

== ENCOUNTER 2024-01-25 18:32 | Inpatient (IN) | payer OTHER, SELFPAY ==
[2024-01-25 13:01] VITALS: BP 126/75
[2024-01-25 13:37] LABS: % Basophils 0.3 % (0-2); % Eosinophils 0.2 % (0-6); % Immature Granulocytes 0.4 % (0-0.5); % Lymphocytes 5.4 % (20.5-51.1); % Neutrophils 87.7 % (42.2-75.2); Absolute Immature Granulocytes 0.1 10^3/uL (0-0.05); Absolute Lymphocytes 0.7 10^3/uL (1.2-3.4); Absolute Monocytes 0.7 10^3/uL (0.1-0.6); Absolute Neutrophils 10.7 10^3/uL (1.4-6.5); Hematocrit 31.5 % (37.0-47.0); Hemoglobin 10.8 g/dL (12.0-16.0); Mean Corp Hgb Conc. 34.3 g/dL (33.0-37.0); Mean Corpuscular Hgb 30.4 pg (27.0-31.0); Mean Corpuscular Volume 88.7 fL (81.0-99.0); Mean Platelet Volume 9.7 fL (7.4-10.4); Nucleated Red Blood Cells % 0 %; Platelet Count 341 10^3/uL (130-400); Red Blood Cell Count 3.55 10^6/uL (4.20-5.40); Red Cell Dist. Width 13.1 % (11.5-14.5); White Blood Cell Count 12.2 10^3/uL (4.8-10.8)
[2024-01-25 13:49] LABS: ALT (SGPT) 31 U/L (0-35); AST (SGOT) 36 U/L (14-36); Albumin 3.8 g/dl (3.5-5.0); Alkaline Phosphatase 166 U/L (38-126); Blood Urea Nitrogen 15 mg/dl (7-17); Calcium 10.1 mg/dl (8.4-10.2); Carbon Dioxide 26 mmol/L (22-30); Chloride 96 mmol/L (98-107); Glucose 151 mg/dl (70-99); Potassium 4.1 mmol/L (3.5-5.1); Sodium 134 mmol/L (135-145); Total Bilirubin 0.7 mg/dl (0.2-1.3); Total Protein 6.5 g/dl (6.3-8.2); eGFR 55.21
[2024-01-25 15:24] VITALS: BP 151/77
--- NOTE | 2024-01-25 17:35 | ED.GENMED ---
History of Present Illness
General
Chief Complaint: Rectal Bleeding
Time Seen by Provider: 01/25/24 17:15
History of Present Illness
History of Present Illness:
83-year-old female presents the emergency department for evaluation of rectal bleeding. History is challenging to obtain as the patient has severe aphasia from prior stroke but reports large amount of bright red blood with a bowel movement today.
She was recently started on Xarelto due to right upper lobe pulmonary emboli and is still on the initial loading dose of anticoagulants. She last took her anticoagulants this morning.
Past History
Past History
ED Past Medical History: Other (See nurses note)
ED Past Surgical History: Brain
Social History
Tobacco: Former smoker
Alcohol: None
Drug: None
Personal:
Living: with family
Employment: Retired
Review of Systems
Review of Systems
Allergies reviewed?: Yes
All Other Systems: ROS reviewed and negative except as documented in HPI and ROS
Phy Exam
Physical Exam
Physical Exam:
GEN: Well appearing, NAD, WDWN
HEENT: Oral mucosa moist, no scleral icterus
Cardiac: Regular rate
Lung: No respiratory distress, no tachypnea
Rectal: No active bleeding, no external hemorrhoids/fissures
MSK: No gross deformity or injuries
Skin: Good color, no pallor or jaundice, no rashes
Neuro: AO x3, moves all extremities freely
Psych: Calm, cooperative
Course
Orders/Labs/Results
Orders:
Orders
01/25/24 13:21
Type+Screen Urgent
Complete Blood Count/With Diff Urgent
Comprehensive Metabolic Panel Urgent
01/25/24 16:48
Urinalysis Reflex To Culture Urgent
Date Specimen was Collected: 01/25/24
Time Specimen was Collected: 13:07
01/25/24 18:09
Admit/Transfer Patient As Directed
Co-Sign Provider:
Level of Care: Inpatient admission
Assign to:: Telemetry
Physician / Group: Hospitalist
Diagnosis: GI bleeding
Reason for Telemetry: Medication for Arrhythmia
Date to Stop Telemetry: 01/27/24
Time to Stop Telemetry: 11:00
Reason for Hospitalization: .
Expected length of stay greater than two midnights?: Yes
ELOS- Estimated Length of Stay in days: 3
I certify the patient meets the requirements for IP care: Yes
PRN Pain Medication Management As Directed
May give lesser potent ordered pain med per pt: Yes
preference::
Protocol:: Medication orders for pain may be administered in a
manner that supports deferring to patient preference
when the pt is:
- Requesting an ordered lesser potent pain medication.
Least to most potent pain medications are defined
as: acetaminophen < NSAID < tramadol < opioids
(morphine, oxycodone, hydromorphone).
- Requesting a lesser dose of the same medication IF
ORDERED.
- Requesting a less intrusive route of administration
if both routes are prescribed by the provider (PO <
IV).
01/25/24 18:14
Code Status As Directed
Resuscitation Status: Full Code
01/25/24 18:24
CT Abd/pelvis Angio W/wo Iv Urgent
Comment:
Reason For Exam: rectal bleeding
01/25/24 18:25
ABO2 Routine
BBK Wristband Number:
Associate notified that ABO2 has been ordered: 00017
Date: 01/25/24
Time: 13:33
Poultry Barn Manager ID: [id number]
01/27/24 11:00
DC Protocol for Telemetry ONCE
Abnormal Lab Results
01/25/24
13:21
WBC 12.2 H 10^3/uL
(4.8-10.8)
RBC 3.55 L 10^6/uL
(4.20-5.40)
Hgb 10.8 L g/dL
(12.0-16.0)
Hct 31.5 L %
(37.0-47.0)
Abs Immat Gran (auto) 0.1 H 10^3/uL
(0-0.05)
Absolute Neuts (auto) 10.7 H 10^3/uL
(1.4-6.5)
Absolute Lymphs (auto) 0.7 L 10^3/uL
(1.2-3.4)
Absolute Monos (auto) 0.7 H 10^3/uL
(0.1-0.6)
Neutrophils % 87.7 H %
(42.2-75.2)
Lymphocytes % 5.4 L %
(20.5-51.1)
Sodium 134 L mmol/L
(135-145)
Chloride 96 L mmol/L
(98-107)
Glucose 151 H mg/dl
(70-99)
Alkaline Phosphatase 166 H U/L
(38-126)
01/25/24 13:21
01/25/24 13:21
Vital Signs
Initial and Last Documented VS:
Initial Vital Signs
Temp Pulse Resp BP Pulse Ox
98.7 F 67 18 126/75 96
01/25/24 13:01 01/25/24 13:01 01/25/24 13:01 01/25/24 13:01 01/25/24 13:01
Last Documented Vital Signs
Temp Pulse Resp BP Pulse Ox
98.7 F 62 27 151/77 93
01/25/24 15:24 01/25/24 19:15 01/25/24 19:15 01/25/24 15:24 01/25/24 19:15
MDM/Problems Addressed
MDM/Problems Addressed:
As the patient was recently initiated on anticoagulants and is a notable hemoglobin drop of approximately 2 g since last hospitalization she is not suitable for discharge to home. On my evaluation there was no active bleeding thus I did not see
indication for CT angiogram to evaluate for significant lower GI bleeding however this was requested by the admitting team. Her last dose of anticoagulants was this morning, will be held for admission
*Critical Care Note
Total Time (30-74mins, 75-104mins- exclusive of procedures): Not Applicable
ED Attending Note
-
Portions of this chart may have been created with voice recognition software.� Occasional wrong word or��sound alike� substitutions may have occurred due to the inherent limitations of voice recognition software.
Discharge Plan
Departure
Patient Disposition: Admit
Date of Disposition: 01/25/24
Time of Disposition: 17:44
Presentation/result/management discussed w/ accepting MD/DO: Hospitalist
Discharge Problem:
Bright red rectal bleeding, Chronic anticoagulation
Interventions
Interventions:
*Risk Screen - Suicide Last Done: 01/25/24 13:01
*General Assessment Last Done: 01/25/24 13:01
*Neglect/Abuse Screening Last Done: 01/25/24 13:01
KY-Ixxayh-Xrslqkzkiv Assessment Last Done: 01/25/24 18:32
ED- Cardiac Assessment Last Done: 01/25/24 18:32
ED- Pulmonary Assessment Last Done: 01/25/24 18:32
[2024-01-25 17:56] VITALS: BMI 29.4
--- NOTE | 2024-01-25 18:09 | HPS.HSE ---
Family Physician
-
Family Physician: Carisa Byrne
Chief Complaint
-
Blood in stool for 1 day duration
History of Present Illness
83 years old female who is taking Eliquis for recent pulmonary embolism that was diagnosed in December 2023 presented with blood in the stool that was noticed today. Patient denied nausea or vomiting. She reported lower abdominal discomfort.
Upon questioning, she reported black stool for several days. In the emergency room, hemoglobin was 10.8. Hemoglobin was 12.4 last admission in December this year. No hypotension.
Patient reported history of diverticulosis and she stopped doing screening colonoscopy due to advanced age. She saw [facility] in the past.
Medical History
Past Medical History
Past Medical History: Reports Other ( Pulmonary believes him, hypertension, hyperlipidemia, history of meningioma, aphasia, hypothyroidism, anxiety, constipation, hiatal hernia, history of breast cancer)
Past Surgical History: Reports Other (No recent major surgery)
Social History
Tobacco: Former Smoker
Alcohol: None
Drug: None
Personal:
Living: With Family
Employment: Retired
Family History
Family History: Other (Other (Mother pancreatic cancer, father MVA, brother living history of prostate cancer, sister living history of lymphoma, patient's son living history of breast cancer, renal carcinoma, thyroid cancer))
Allergies / Home Medications
Allergies reflects when Allergies were last updated in [facility].
Home Medications with original date entered in [facility]
Allergy/Medication List:
Allergies
Allergy/AdvReac Type Severity Reaction Status Date / Time
aminophylline Allergy Rash Verified 01/25/24 13:01
amlodipine Allergy Swelling Verified 01/25/24 13:01
amlodipine besylate Allergy edema Verified 01/25/24 13:01
[From [facility]]
atenolol Allergy 'felt Verified 01/25/24 13:01
lousy'
codeine Allergy constipatio Verified 01/25/24 13:01
n
cortisone Allergy Rash Verified 01/25/24 13:01
diltiazem Allergy edema Verified 01/25/24 13:01
dipyridamole Allergy Rash Verified 01/25/24 13:01
[From Persantine]
irbesartan [From Avapro] Allergy palpitation Verified 01/25/24 13:01
s
olmesartan medoxomil Allergy dizziness Verified 01/25/24 13:01
[From Benicar]
Penicillins Allergy Rash Verified 01/25/24 13:01
phenytoin sodium Allergy Rash Verified 01/25/24 13:01
[From Dilantin]
phenytoin sodium extended Allergy Rash Verified 01/25/24 13:01
[From Dilantin]
prednisone Allergy Rash Verified 01/25/24 13:01
shellfish derived Allergy Welts Verified 01/25/24 13:01
simvastatin [From Zocor] Allergy muscle pain Verified 01/25/24 13:01
Sulfa (Sulfonamide Allergy Unknown Verified 01/25/24 13:01
Antibiotics)
Home Medications
cholecalciferol (vitamin D3) 50 mcg (2,000 unit) tablet 2,000 unit PO DAILY 03/07/16
furosemide 20 mg tablet 20 mg PO DAILY Fluid Retention/Swelling 03/07/16
levothyroxine 150 mcg tablet 150 mcg PO DAILY Thyroid 03/07/16
magnesium oxide 400 mg PO DAILY Supplement 03/07/16
omeprazole 40 mg capsule,delayed release 40 mg PO BID Gastrointestinal Issue 03/07/16
rosuvastatin 5 mg tablet (Crestor) 5 mg PO DAILY High Cholesterol 03/07/16
nifedipine 90 mg tablet,extended release 90 mg PO DAILY #30 tabs 12/24/23
acetaminophen 500 mg tablet (Tylenol Extra Strength) 500 mg PO Q6HPRN PRN mild pain 01/25/24
apixaban 5 mg tablet (Eliquis) 5 mg PO BID 01/25/24
ascorbic acid (vitamin C) 500 mg tablet (Vitamin C) 500 mg PO DAILY 01/25/24
calcium 600 mg (as carbonate)-vit D3 20 mcg (800 unit) chewable tablet (Caltrate plus D) 1 tab PO DAILY 01/25/24
citalopram 20 mg tablet 20 mg PO DAILY 01/25/24
cyanocobalamin (vitamin B-12) 500 mcg tablet 500 mcg PO DAILY 01/25/24
fexofenadine 180 mg tablet 180 mg PO DAILY 01/25/24
folic acid 1 mg tablet 1 mg PO DAILY 01/25/24
valsartan 160 mg tablet 160 mg PO DAILY 01/25/24
Review of Systems
-
History Source: Patient
A 12 point ROS was completed and negative except as noted: Yes
Constitutional: Denies Fatigue or Chills
EENT: Denies Sore Throat
Respiratory: Denies Cough
Cardiac: Denies Chest Pain
Abdomen/GI: Reports Bloody Stools and Black Stools; Denies Abdominal Pain, Nausea or Vomiting
: Denies Dysuria or Frequency
Musculoskeletal: Denies Joint Pain or Joint Swelling
Skin: Denies Itching
Neurological: Denies Numbness
Endocrine: Denies Temp Intolerance
Psych: Denies Panic Disorder
Physical Exam
Vital Signs
Vital Signs
Temp Pulse Resp BP Pulse Ox
98.7 F 66 18 151/77 96
01/25/24 15:24 01/25/24 15:24 01/25/24 13:01 01/25/24 15:24 01/25/24 15:24
Physical Exam
General: No Apparent Distress and Comfortable
HEENT: Moist mucous membranes and Atraumatic
Respiratory: Clear
Cardiac: S1/S2 and Regular Rhythm
GI: Soft and Tender (lower abd discomfort but no rebound tenderness )
Rectal: Red
Genito-urinary: No costovertebral tender
Musculoskeletal: No Edema
Skin: Warm; No Jaundice
Neuro: Awake, Oriented and Slurred Speech (Chronic ); No Tremors
Psych: Calm; No Agitated
Laboratory Results
-
01/25/24 13:21
01/25/24 13:21
Laboratory Results
Total Bilirubin 0.7 mg/dl (0.2-1.3) 01/25/24 13:21
AST 36 U/L (14-36) 01/25/24 13:21
ALT 31 U/L (0-35) 01/25/24 13:21
Alkaline Phosphatase 166 U/L (38-126) H 01/25/24 13:21
Impression/Plan
-
# Acute blood loss anemia/melena/lower GI bleeding
Patient does not have nausea or vomiting. She reports mild lower abdominal discomfort
No hemodynamic instability on admission
Hemoglobin around 10 on admission and was at 12 in December [address] of the abdomen and pelvis
We will consult gastroenterology for further recommendation. Patient reported history of diverticulosis and her last colonoscopy was more than 7 years ago. Stopped screening due to age. She followed with GI doctor at [facility] in the past
Will monitor hemoglobin level, recheck later tonight and in the morning
Continue with oral PPI
# Recent 12/2023 PE right upper lobe
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
#History of postoperative right lower extremity DVT
-s/p Eliquis which is on hold now
-2D echo 12/24/23: EF 60-65%, mild LVH, mild (29/17/2.3), mild-mod AI.
-Venous Doppler bilateral legs showed no DVT
-Cardiothoracic surgery consulted, appreciate evaluation and recommendations -- seen by Dr. Isbell recommended OP follow up.
#Moderate Cardiomegaly on CT Chest
#Mild Hypercalcemia, resolved.
#Multilevel thoracic DDD/thoracic kyphosis
#DVT hx right lower extremity 1983
#Meningioma removal x2-no residual meningioma per family at bedside at [facility]
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
with post hemorrhage removal after dvt treatment with heparin 19 years ago
#HTN
-Continue patient's home medications but increased Nifedipine to 90 mg daily
-Low sodium diet
-Avoid AV Tami Blockers
#Hyperlipidemia
#Hypothyroidism/ thyroid nodules
-Continue levothyroxine
Anxiety
-
OA
Diverticulosis/diverticulitis
Hiatal hernia
Constipation
Right breast CA with radiation lumpectomy 16 years ago
Former smoker quit 1980
Total time spent to see the patient on the floor, examine the patient, review data and lab results, discuss treatment plan with patient, ER doctor, nursing staff around 75 minutes
[2024-01-25 20:53] VITALS: BP 146/81
[2024-01-25 23:39] VITALS: BP 144/71
[2024-01-25 23:50] LABS: Urine Albumin Trace (Neg - Trace); Urine Bilirubin Negative (Negative); Urine Character Clear (Clear); Urine Color Yellow; Urine Glucose Negative (Negative); Urine Ketone Negative (Negative); Urine Leukocyte Negative (Negative); Urine Nitrite Negative (Negative); Urine Occult Blood Negative (Negative); Urine Specific Gravity 1.005 (<1.030); Urine Urobilinogen Negative (Neg - 1+)
[2024-01-25 23:52] LABS: Hemoglobin 11.3 g/dL (12.0-16.0)
--- NOTE | 2024-01-26 02:10 | PTCARENOTE ---
Pt received from ER AAOX3 forgetful at times only.Pt placed on bed alarm for safety. OOB with 1 person assist only.Call armstrong in reach.Plan of care continued. JANITORIAL SUPERVISOR made aware of pt voiding in small amounts only,pt was bladder scan for 525 & straight
cath for 650ml clear yellow urine. As per pt family pt was diagnosed with UTI & prescribed ciprofloxacin, JANITORIAL SUPERVISOR made aware.
[2024-01-26 03:26] VITALS: BP 142/69
--- NOTE | 2024-01-26 05:10 | W.PN.UPDATE ---
Update Note
Progress Note Update
RN notified [employer] PRICING CONSULTANT, monitor showing A-fib also PVC's, EKG done twice and showed two different readings. one with Afib with RVR (which may be new) HR 55, second one showed Sinus Bradycardia with marked sinus arrhythmia with ist degree AV block which is
similar to previous EKG's. Per nursing patient is stable with stable VS V/s 142/69 BP, 53-HR,temp-98.5. Will add mag to lab and advise to be done stat. Patient is asymptomatic. Patient has recent hx of PE and was on Eliquis which is on hold at
present, may need to consider consulting Chief Guard possibly new Afib with RVR.
[2024-01-26 05:25] LABS: Hematocrit 30.7 % (37.0-47.0); Hemoglobin 10.3 g/dL (12.0-16.0); Mean Corp Hgb Conc. 33.6 g/dL (33.0-37.0); Mean Corpuscular Volume 89.5 fL (81.0-99.0); Mean Platelet Volume 9.8 fL (7.4-10.4); Platelet Count 327 10^3/uL (130-400); Red Blood Cell Count 3.43 10^6/uL (4.20-5.40); White Blood Cell Count 7.9 10^3/uL (4.8-10.8)
[2024-01-26 05:51] LABS: Blood Urea Nitrogen 13 mg/dl (7-17); Carbon Dioxide 26 mmol/L (22-30); Chloride 101 mmol/L (98-107); Estimated Creatinine Clearance 48 ml/min; Glucose 145 mg/dl (70-99); Magnesium 2.1 mg/dl (1.6-2.3); Potassium 3.9 mmol/L (3.5-5.1); Sodium 137 mmol/L (135-145); eGFR > 60.00
[2024-01-26] MEDS: SYNTHROID 150 MCG PO (06:00)
--- NOTE | 2024-01-26 08:03 | PTCARENOTE ---
Pt noted to be reading afibb on monitor with PVC's. Pt bradycardic when asleep in 49-53, asymptomatic. Denies pain. EKG was done on pt & pt GUSSET MAKER seen it. Pt telemetry & EKG reads afibb at times & has P waves. Pt was straight cath twice during shift as
pt voids in small amounts at times. 3 small BM loose with blood tinged at times. hgb stable.GUSSET MAKER added Mag to pt am labs,repeat lab was 2.1.GUSSET MAKER was made aware no new orders at this time. Plan of care continued.
[2024-01-26 08:17] VITALS: BP 149/75
--- NOTE | 2024-01-26 09:41 | CON.GI ---
Addendum entered and electronically signed by DENAE Quintero 01/26/24 10:55:
reviewed with Dr. Grider with normalized WBC and no fever. Await surgical eval prior to adding abx.
Original Note:
Consultation
-
Date/Time Consultation Requested: 01/25/242044
Date/Time Consultation Performed: 01/26/2445
Requesting Provider: Catalino Grider MD
Performing Provider: DENAE Cheema, Darlene Graham MD
Reason for Consultation: rectal bleeding
Medical History
Chief Complaint / HPI
History of Present Illness:
Pt is a 83yo with hx breast CA with prior radiation and lumpectomy, colon polyp last colon about 7 years ago at [place], meningioma, expressive aphasia, hypothyroidism, HTN, hyperlipidemia and recent PE and mediastinal mass on Eliquis present to
01/24 with rectal bleeding and lower abdominal pain. Bleeding began yesterday with larger volume of reg blood with 2 episodes. She also admits to lower abdominal pain in LLQ with some radiation to back. She had recent UTI with urinary burning
with abx started prior to admission. On admission CTA completed with bleeding with no active GI bleed but concern for central lower pelvis between sigmoid and rectal with inflammatory process concern for diverticulitis with abscess and did also
question possible necrotic primary neoplasm with extra luminal involvement. Also noted hepatic cyst, pancreatic cyst, and renal cyst/angiomyolipoma with t/c eventual MRI. On admission hbg 10.8 prior 12.4 on 12/23, WBC 12,200.
She otherwise admits to some chronic constipation and recent bloating without prior bleeding. She otherwise denies dysphagia, GERD, nausea, vomiting, diarrhea, or black stools. She was also noted with concern for Afib with RVR overnight
then noted sinus ros. She has seen Dr. Isbell for mediastinal mass.
.
Past Medical History
Past Medical History: Cancer (breast CA), HTN, Hypercholesterolemia, Hypothyroidism, Psychiatric (anxiety) and Other (PE 12/2023 and mediastinal mass , meningioma, aphasia, constipation, HH, DVT 1983)
Social History
Tobacco: Former Smoker
Alcohol: None
Drug: None
Personal:
Living: With Family
Employment: Retired
Family History
Family History: Other (Mother pancreatic cancer, father MVA, brother living history of prostate cancer, sister living history of lymphoma, patient's son living history of breast cancer, renal carcinoma, thyroid cancer))
Allergies / Home Medications
Allergy/AdvReac Type Severity Reaction Status Date / Time
aminophylline Allergy Rash Verified 01/25/24 13:01
amlodipine Allergy Swelling Verified 01/25/24 13:01
amlodipine besylate Allergy edema Verified 01/25/24 13:01
[From Norvasc]
atenolol Allergy 'felt Verified 01/25/24 13:01
lousy'
codeine Allergy constipatio Verified 01/25/24 13:01
n
cortisone Allergy Rash Verified 01/25/24 13:01
diltiazem Allergy edema Verified 01/25/24 13:01
dipyridamole Allergy Rash Verified 01/25/24 13:01
[From Persantine]
irbesartan [From Avapro] Allergy palpitation Verified 01/25/24 13:01
s
olmesartan medoxomil Allergy dizziness Verified 01/25/24 13:01
[From Benicar]
Penicillins Allergy Rash Verified 01/25/24 13:01
phenytoin sodium Allergy Rash Verified 01/25/24 13:01
[From Dilantin]
phenytoin sodium extended Allergy Rash Verified 01/25/24 13:01
[From Dilantin]
prednisone Allergy Rash Verified 01/25/24 13:01
shellfish derived Allergy Welts Verified 01/25/24 13:01
simvastatin [From Zocor] Allergy muscle pain Verified 01/25/24 13:01
Sulfa (Sulfonamide Allergy Unknown Verified 01/25/24 13:01
Antibiotics)
�Medication �Instructions �Recorded
cholecalciferol (vitamin D3) 50 2,000 unit PO DAILY 03/07/16
mcg (2,000 unit) tablet
furosemide 20 mg tablet 20 mg PO DAILY Fluid 03/07/16
Retention/Swelling
levothyroxine 150 mcg tablet 150 mcg PO DAILY Thyroid 03/07/16
magnesium oxide 400 mg PO DAILY Supplement 03/07/16
omeprazole 40 mg capsule,delayed 40 mg PO BID Gastrointestinal Issue 03/07/16
release
rosuvastatin 5 mg tablet (Crestor) 5 mg PO DAILY High Cholesterol 03/07/16
nifedipine 90 mg tablet,extended 90 mg PO DAILY #30 tabs 12/24/23
release
acetaminophen 500 mg tablet 500 mg PO Q6HPRN PRN mild pain 01/25/24
(Tylenol Extra Strength)
apixaban 5 mg tablet (Eliquis) 5 mg PO BID 01/25/24
ascorbic acid (vitamin C) 500 mg 500 mg PO DAILY 01/25/24
tablet (Vitamin C)
calcium 600 mg (as carbonate)-vit 1 tab PO DAILY 01/25/24
D3 20 mcg (800 unit) chewable
tablet (Caltrate plus D)
citalopram 20 mg tablet 20 mg PO DAILY 01/25/24
cyanocobalamin (vitamin B-12) 500 500 mcg PO DAILY 01/25/24
mcg tablet
fexofenadine 180 mg tablet 180 mg PO DAILY 01/25/24
folic acid 1 mg tablet 1 mg PO DAILY 01/25/24
valsartan 160 mg tablet 160 mg PO DAILY 01/25/24
Review of Systems
-
History Source: Patient and Family
Constitutional: Reports No Symptoms
EENT: Reports No Symptoms
Respiratory: Reports No Symptoms
Cardiac: Reports No Symptoms
Abdomen/GI: Reports Abdominal Pain, Constipated and Bloody Stools
: Reports Difficulty Voiding (and burning with recent Rx for UTI)
Musculoskeletal: Reports No Symptoms
Skin: Reports No Symptoms
Neurological: Reports Weakness
Endocrine: Reports No Symptoms
Hematologic/Lymphatic: Reports Bleeding
Vital Signs
Temp Pulse Resp BP Pulse Ox
97.8 F 55 18 149/75 96
01/26/24 08:17 01/26/24 08:17 01/26/24 08:17 01/26/24 08:17 01/26/24 08:17
Physical Exam
Exam
General: Well Developed, Well Nourished and No Apparent Distress
HEENT: Normocephalic and Anicteric
Respiratory: Clear
Cardiac: Regular Rhythm
GI: Soft, Tender (lower area of LLQ ) and Distended (mild )
Musculoskeletal: No Clubbing and No Cyanosis
Skin: Warm and Dry
Neuro: Awake, Alert and AO x 3
Psych: Calm
Results
WBC 7.9 10^3/uL (4.8-10.8) 01/26/24 05:14
Hgb 10.3 g/dL (12.0-16.0) L 01/26/24 05:14
Hct 30.7 % (37.0-47.0) L 01/26/24 05:14
MCV 89.5 fL (81.0-99.0) 01/26/24 05:14
Plt Count 327 10^3/uL (130-400) 01/26/24 05:14
Absolute Neuts (auto) 10.7 10^3/uL (1.4-6.5) H 01/25/24 13:21
Sodium 137 mmol/L (135-145) 01/26/24 05:14
Potassium 3.9 mmol/L (3.5-5.1) 01/26/24 05:14
Chloride 101 mmol/L (98-107) 01/26/24 05:14
Carbon Dioxide 26 mmol/L (22-30) 01/26/24 05:14
BUN 13 mg/dl (7-17) 01/26/24 05:14
Creatinine 0.9 mg/dL (0.6-1.0) 01/26/24 05:14
Calcium 10.0 mg/dl (8.4-10.2) 01/26/24 05:14
Total Bilirubin 0.7 mg/dl (0.2-1.3) 01/25/24 13:21
AST 36 U/L (14-36) 01/25/24 13:21
ALT 31 U/L (0-35) 01/25/24 13:21
Alkaline Phosphatase 166 U/L (38-126) H 01/25/24 13:21
Diagnostic imaging:
01.24 CT Abd/pelvis Angio W/wo Iv
No extravasation of injected vascular contrast accumulating within the bowel lumen to suggest acute gastrointestinal hemorrhage.
Abnormal attenuation in the central lower pelvis, as described, between the distal sigmoid colon and rectum. Most likely infection/inflammation (diverticulitis with abscess formation). The possibility of necrotic primary rectal neoplasm with
extramural extension and involvement of the adjacent distal sigmoid colon cannot be entirely excluded.
Probable small hepatic cysts and tiny splenic hemangiomas.
Scattered low-attenuation/cystic structures are seen within the pancreas. Consider further evaluation/characterization with nonemergent MRI.
Bilateral renal cysts. Left renal angiomyolipoma. No obstructive uropathy.
12/21/23 CT chest
1. SMALL ACUTE PULMONARY EMBOLI in the RIGHT UPPER LOBE.
2. Moderate cardiomegaly.
3. 2.8 cm mass in the anterior mediastinum. Diagnostic possibilities are (1) a thymic epithelial tumor, (2) lymphoma, (3) a germ cell tumor, or (4) a complex cyst.
4. Mild subpleural scarring in the lower lobes of the lungs.
5. Small hiatal hernia.
6. Severe multilevel thoracic discogenic degenerative disease and moderately exaggerated thoracic kyphosis.
Prior GI Procedures:
EGD: last years ago recall as normal at [place]
Colonoscopy: hx polyps last ? 7 years ago at [place]
Assessment / Plan
-
Pt is a 83yo with hx breast CA with prior radiation and lumpectomy, colon polyp last colon about 7 years ago at [place], meningioma, expressive aphasia, hypothyroidism, HTN, hyperlipidemia and recent PE and mediastinal mass on Eliquis present to
01/24 with rectal bleeding and lower abdominal pain. Bleeding began yesterday with larger volume of reg blood with 2 episodes. She also admits to lower abdominal pain in LLQ with some radiation to back. She had recent UTI with urinary burning
with abx started prior to admission. On admission CTA completed with bleeding with no active GI bleed but concern for central lower pelvis between sigmoid and rectal with inflammatory process concern for diverticulitis with abscess and did also
question possible necrotic primary neoplasm with extra luminal involvement. Also noted hepatic cyst, pancreatic cyst, and renal cyst/angiomyolipoma with t/c eventual MRI. On admission hbg 10.8 prior 12.4 on 12/23, WBC 12,200.
-rectal bleeding
-recent PE with newly added Eliquis
-abdominal pain with abnormal CT with concern for diverticulitis with abscess and ? necrotic neoplasm
-mild leukocytosis
-mild anemia
-recent UTI with neg urine on admission
-afib/RVR noted on admission
-mediastinal mass with recent eval with Dr. Isbell
-pancreatic cyst
other medical problems:
-hx colon polyps
-DDD
-hx DVT 1983
-breast CA lumpectomy/radiation
-expressive aphasia
-meningioma with removal x 2
-HTN
-anxiety
-HH
-multiple drug allergies
PLAN:
etiology of bleeding related to diverticular bleed with large volume x [address] with diverticulitis with ? abscess/mass vs other
will consult surgery for evaluation to see if diverticular abscess needs drainage
mild leukocytosis on admission now improved and no fever since admission
last colonoscopy 7 years ago at [place] with / polyps
trend hbg and stool record
will review with Dr. Grider for antibiotics with concern for abscess and multiple drug allergies
will need to consider eventual colonoscopy with GI vs colorectal surgery when improved to exclude mass
ok for clear diet
eventual OP MRI for pancreatic cyst -- reviewed results with family
consider cards eval for concern for afib with RVR overnight
family updated on bedside
-
-
Thank you for consultation and allowing me to participate in the patient's care. Please call the [facility] GI physician during the after hours with any questions or concerns.
[2024-01-26] MEDS: CRESTOR 5 MG PO (09:42)
--- NOTE | 2024-01-26 09:42 | W.PN.HOSP.TC ---
Today's Communication/Plan
-
f/w GI recommendations
WIll review EKG with on-call core stacker
Assessment / Plan
Assessment / Plan
Physical Exam
General: No Apparent Distress and Comfortable
HEENT: Moist mucous membranes and Atraumatic
Respiratory: Clear
Cardiac: S1/S2 and Regular Rhythm
GI: Soft and Tender (lower abd discomfort but no rebound tenderness )
Rectal: Red
Genito-urinary: No costovertebral tender
Musculoskeletal: No Edema
Skin: Warm; No Jaundice
Neuro: Awake, Oriented and Slurred Speech (Chronic ); No Tremors
Psych: Calm; No Agitated
# Acute blood loss anemia/melena/lower GI bleeding
Patient does not have nausea or vomiting. She denies abdominal discomfort
No hemodynamic instability on admission
Hemoglobin around 10 on admission and was at 12 in December [address]
CT of the abdomen and pelvis showed no extravasation, abnormal attenuation in the central lower pelvis between the distal sigmoid colon and rectum. 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
Consulted gastroenterology for further recommendation. Patient reported history of diverticulosis and her last colonoscopy was more than 7 years ago. Stopped screening due to age. She followed with GI doctor at [place] in the past
Continue with oral PPI
Will d/w GI doctor.
# Cardiac arrhythmia noted on the monitor overnight.
Reviewed EKG with on-call core stacker.
Heart rate is controlled. Patient did not have chest pain or palpitations.
# Recent 12/2023 PE right upper lobe
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
#History of postoperative right lower extremity DVT
-s/p Eliquis which is on hold now
-2D echo 12/24/23: EF 60-65%, mild LVH, mild (29/17/2.3), mild-mod AI.
-Venous Doppler bilateral legs showed no DVT
-Cardiothoracic surgery consulted, appreciate evaluation and recommendations -- seen by Dr. Isbell recommended OP follow up.
#Moderate Cardiomegaly on CT Chest
# Mild hyponatremia, resolved.
#Multilevel thoracic DDD/thoracic kyphosis
#DVT hx right lower extremity 1983
#Meningioma removal x2-no residual meningioma per family at bedside at [facility]
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
with post hemorrhage removal after dvt treatment with heparin 19 years ago
#HTN
-Continue patient's home medications but increased Nifedipine to 90 mg daily
-Low sodium diet
-Avoid AV Tami Blockers
#Hyperlipidemia
#Hypothyroidism/ thyroid nodules
-Continue levothyroxine
Anxiety
-
OA
Diverticulosis/diverticulitis
Hiatal hernia
Constipation
Right breast CA with radiation lumpectomy 16 years ago
Former smoker quit 1980
Total time spent to see the patient on the floor, examine the patient, review data and lab results, discuss treatment plan with patient, nursing staff around 55 minutes.
Anticipated Discharge: > 48 hours
Subjective/Interval History
-
Date of Service: January 26, 2024
Small Marilee ( small black stool) over night
Objective Data
-
Labs:
Laboratory Results
01/25/24 01/26/24
23:38 05:14
WBC 7.9
Hgb 11.3 L 10.3 L
Hct 30.7 L
Plt Count 327
Sodium 137
Potassium 3.9
Chloride 101
Carbon Dioxide 26
BUN 13
Creatinine 0.9
Glucose 145 H
Calcium 10.0
Vital Signs:
Vital Signs
Temp Pulse Resp BP Pulse Ox
97.8 F 55 18 149/75 96
01/26/24 08:17 01/26/24 08:17 01/26/24 08:17 01/26/24 08:17 01/26/24 08:17
I&O
01/25/24 01/26/24 01/27/24
06:59 06:59 06:59
Output Total 1400 / 1400
Balance -1400 / -1400
[2024-01-26] MEDS: DIOVAN 160 MG PO (09:43)
[2024-01-26] MEDS: PROTONIX 40 MG PO (09:43)
[2024-01-26] MEDS: CELEXA 20 MG PO (09:43)
[2024-01-26] MEDS: PROCARDIA XL (EXTENDED RELEASE) 90 MG PO (09:43)
[2024-01-26] MEDS: FLUSH (NSS) 1 FLUSH IV (09:44)
[2024-01-26 11:46] VITALS: BP 131/61
--- NOTE | 2024-01-26 15:57 | CON.GS ---
Addendum entered and electronically signed by Red Mcdaniel MD 01/26/24 16:25:
I saw and examined the patient.
The Sash Assembler's note was reviewed and I agree with the note.
Comment: Minimal pain, no further blood per rectum though history not totally reliable from patient, nursing confirmed no red blood in stool this am. Exam with minimal ttp mostly to suprapubic area. Imaging c/w severe distal sigmoid diverticulitis,
without drainable collection. Plan for non-op mgmt with IV abx. Rec rpt imaging to assess her progress as her wbc has normalized and her exam is farly benign.
Original Note:
Medical History
-
Chief Complaint: Hematochezia
History of Present Illness:
Ms. Morrison is an 83 yo female with h/o meningioma with removal x2 in the , expressive aphasia, and breast cancer tx in 2012 with surgery/xrt, on Eliquis for PE dx last month who presented through the ED yesterday with bloody stools. History
difficult to obtain d/t expressive aphasia but she is able to answer questions with simple answers. The majority of history obtained from historic chart and family. She did note pain in the LLQ radiating into the back which she notes has improved
today. She was recently treated for a UTI with antibiotics initiated just prior to admission and has noted urinary retention since presentation requiring intermittent straight cath although she has voided some on her own as well. She denies nausea
and vomiting. Abdomen with mild tenderness to the LLQ with deep palpation, distention is present. She reports that while she does still feel distended, it is better. She passed a loose, nonbloody bm this afternoon per nursing.
Past Medical History
Past Medical History: Cancer (breast), HTN, Hypercholesterolemia, Hypothyroidism, Psychiatric (anxiety) and Other (PE 12/2023, DVT 1983, mediastinal mass (recent eval with Dr. Isbell), meningioma, aphasia, hiatal hernia)
Past Surgical History: Gynecological (Hysterectomy 1987) and Other (Benign thyroid nodule removal 1958, 1971, Removal of benign brain tumor meningioma with post bleed , Right breast biopsy, right axilla lymph node removal, radiation right
breast secondary breast cancer 2012)
Social History
Tobacco: Former Smoker (quit 1980)
Living: With Family
Family History
Family History: Cancer (mother pancreatic, sister with lymphoma)
Allergies / Home Medications
Allergy/AdvReac Type Severity Reaction Status Date / Time
aminophylline Allergy Rash Verified 01/25/24 13:01
amlodipine Allergy Swelling Verified 01/25/24 13:01
amlodipine besylate Allergy edema Verified 01/25/24 13:01
[From Norvasc]
atenolol Allergy 'felt Verified 01/25/24 13:01
lousy'
codeine Allergy constipatio Verified 01/25/24 13:01
n
cortisone Allergy Rash Verified 01/25/24 13:01
diltiazem Allergy edema Verified 01/25/24 13:01
dipyridamole Allergy Rash Verified 01/25/24 13:01
[From Persantine]
irbesartan [From Avapro] Allergy palpitation Verified 01/25/24 13:01
s
olmesartan medoxomil Allergy dizziness Verified 01/25/24 13:01
[From Benicar]
Penicillins Allergy Rash Verified 01/25/24 13:01
phenytoin sodium Allergy Rash Verified 01/25/24 13:01
[From Dilantin]
phenytoin sodium extended Allergy Rash Verified 01/25/24 13:01
[From Dilantin]
prednisone Allergy Rash Verified 01/25/24 13:01
shellfish derived Allergy Welts Verified 01/25/24 13:01
simvastatin [From Zocor] Allergy muscle pain Verified 01/25/24 13:01
Sulfa (Sulfonamide Allergy Unknown Verified 01/25/24 13:01
Antibiotics)
�Medication �Instructions �Recorded �Confirmed �Type
cholecalciferol (vitamin D3) 50 2,000 unit PO DAILY Supplement 03/07/16 01/25/24 History
mcg (2,000 unit) tablet
furosemide 20 mg tablet 20 mg PO DAILY Fluid 03/07/16 01/25/24 History
Retention/Swelling
levothyroxine 150 mcg tablet 150 mcg PO DAILY Thyroid 03/07/16 01/25/24 History
magnesium oxide 400 mg PO DAILY Supplement 03/07/16 01/25/24 History
omeprazole 40 mg capsule,delayed 40 mg PO BID Gastrointestinal Issue 03/07/16 01/25/24 History
release
rosuvastatin 5 mg tablet (Crestor) 5 mg PO DAILY High Cholesterol 03/07/16 01/25/24 History
nifedipine 90 mg tablet,extended 90 mg PO DAILY #30 tabs 12/24/23 01/25/24 Rx
release
acetaminophen 500 mg tablet 500 mg PO Q6HPRN PRN mild pain 01/25/24 01/25/24 History
(Tylenol Extra Strength)
apixaban 5 mg tablet (Eliquis) 5 mg PO BID Blood Clot 01/25/24 01/25/24 History
Prevention/Tx
ascorbic acid (vitamin C) 500 mg 500 mg PO DAILY Supplement 01/25/24 01/25/24 History
tablet (Vitamin C)
calcium 600 mg (as carbonate)-vit 1 tab PO DAILY Supplement 01/25/24 01/25/24 History
D3 20 mcg (800 unit) chewable
tablet (Caltrate plus D)
citalopram 20 mg tablet 20 mg PO DAILY Mental 01/25/24 01/25/24 History
Health/Anxiety
cyanocobalamin (vitamin B-12) 500 500 mcg PO DAILY Supplement 01/25/24 01/25/24 History
mcg tablet
fexofenadine 180 mg tablet 180 mg PO DAILY Allergies 01/25/24 01/25/24 History
folic acid 1 mg tablet 1 mg PO DAILY Supplement 01/25/24 01/25/24 History
valsartan 160 mg tablet 160 mg PO DAILY Blood Pressure 01/25/24 01/25/24 History
Review of Systems
-
Unable to obtain full review of systems at this time due to: Other (expressive aphasia)
History Source: Patient and Family
All other systems: Negative unless noted
A 10 point review of systems was completed, and was negative except as per HPI.
Physical Exam
Vital Signs
Temp Pulse Resp BP Pulse Ox
97.5 F 58 18 131/61 94
01/26/24 11:46 01/26/24 11:46 01/26/24 11:46 01/26/24 11:46 01/26/24 11:46
01/25/24 01/26/24 01/27/24
06:59 06:59 06:59
Actual Weight 81.732 kg
Body Mass Index (BMI) 30.0
Lab Results
01/26/24 05:14
01/26/24 05:14
WBC 7.9 10^3/uL (4.8-10.8) 01/26/24 05:14
Hgb 10.3 g/dL (12.0-16.0) L 01/26/24 05:14
Hct 30.7 % (37.0-47.0) L 01/26/24 05:14
Plt Count 327 10^3/uL (130-400) 01/26/24 05:14
Abs Immat Gran (auto) 0.1 10^3/uL (0-0.05) H 01/25/24 13:21
Neutrophils % 87.7 % (42.2-75.2) H 01/25/24 13:21
Data Reviewed
-
CT Scan: Image Personally Visualized and interpreted, Report Reviewed by me, Discussed with Physician, Discussed with Patient and Discussed with Family
Labs: Labs Reviewed by me, Discussed with Physician, Discussed with Patient and Discussed with Family
Old Records: Reviewed
Assessment / Plan
-
83 yo female with h/o meningioma with removal x2 in the 1979's, expressive aphasia, and breast cancer tx in 2013 with surgery/xrt, on Eliquis for PE dx last month (AC on hold) who presented through the ED yesterday with bloody stools. She did note
pain in the LLQ radiating into the back which she notes has improved today. She was recently treated for a UTI with antibiotics initiated just prior to admission with normal UA on presentation. Urinary retention present this hospitalization with
straight cath x2 overnight. Abdomen with mild tenderness to the LLQ with deep palpation, distention is present.
CT imaging reviewed with findings concerning for diverticulitis with phlegmon without true abscess. necrotic rectal neoplasm within the differential. Suspect urinary retention secondary to location of inflammation/?mass. Last bladder scan was in the
70's so suspect this is improving. Cystic structures in pancreas as well (reviewed outpatient follow up with family). She has been afebrile with stable VS. Leukocytosis on arrival is resolved with abx. Mild acute anemia present but stable.
--Ok to continue clear liquids
--Continue ABX
--Place west catheter if retention persists
--Trend labs/exams
--No emergent surgery planned at this time, will follow for improvement with optimal medical management.
[2024-01-26 16:06] VITALS: BP 135/63
[2024-01-26 19:30] VITALS: BP 152/85
[2024-01-26] MEDS: FLAGYL 500 MG 100 IV (20:10)
[2024-01-26] MEDS: ROCEPHIN IV (20:15)
[2024-01-26] MEDS: STERILE WATER FOR INJECTION IV (20:15)
[2024-01-26] MEDS: ROCEPHIN 1000 MG IV (22:29)
[2024-01-26] MEDS: STERILE WATER FOR INJECTION 10 ML IV (22:30)
[2024-01-26 23:52] VITALS: BP 133/74
[2024-01-27 03:17] VITALS: BP 166/87
[2024-01-27] MEDS: FLAGYL 500 MG 100 IV ×3 (05:00→20:37)
[2024-01-27] MEDS: SYNTHROID 150 MCG PO (05:00)
[2024-01-27 07:00] VITALS: BP 145/78
[2024-01-27 07:09] LABS: Hematocrit 31.8 % (37.0-47.0); Hemoglobin 10.8 g/dL (12.0-16.0); Mean Corpuscular Hgb 31.1 pg (27.0-31.0); Mean Corpuscular Volume 91.6 fL (81.0-99.0); Mean Platelet Volume 10.1 fL (7.4-10.4); Platelet Count 329 10^3/uL (130-400); Red Blood Cell Count 3.47 10^6/uL (4.20-5.40); Red Cell Dist. Width 12.8 % (11.5-14.5); White Blood Cell Count 4.9 10^3/uL (4.8-10.8)
[2024-01-27 07:31] LABS: Blood Urea Nitrogen 10 mg/dl (7-17); Calcium 10.5 mg/dl (8.4-10.2); Carbon Dioxide 28 mmol/L (22-30); Chloride 100 mmol/L (98-107); Estimated Creatinine Clearance 54 ml/min; Glucose 146 mg/dl (70-99); Sodium 138 mmol/L (135-145); eGFR > 60.00
[2024-01-27] MEDS: PROTONIX 40 MG PO (08:55)
[2024-01-27] MEDS: DIOVAN 160 MG PO (08:55)
[2024-01-27] MEDS: PROCARDIA XL (EXTENDED RELEASE) 90 MG PO (08:56)
[2024-01-27] MEDS: CRESTOR 5 MG PO (08:56)
[2024-01-27] MEDS: CELEXA 20 MG PO (08:56)
--- NOTE | 2024-01-27 10:26 | W.PN.HOSP.TC ---
Addendum entered and electronically signed by Catalino Grider MD 01/27/24 16:35:
Addendum
I called the daughter, she will be available to talk with GI doctor regarding flexible sigmoidoscopy.
Daughter was also concerned about recent PE and the bleeding with Eliquis. Can consider IR to pace a filter if can not control GI bleeding source but filter but filter also has some risks and not permanent solution. Will consult pulmonary for
further input. Pt saw Dr. Fritz in office recently.
End
Original Note:
Today's Communication/Plan
-
f/w GI and surgery recommendation, further work up
Eliquis on hold pending further evaluation
+ blood in stool
Assessment / Plan
Assessment / Plan
Physical Exam
General: No Apparent Distress and Comfortable
HEENT: Moist mucous membranes and Atraumatic
Respiratory: Clear
Cardiac: S1/S2 and Regular Rhythm
GI: Soft and not tender.
Rectal: no active bleeding.
Genito-urinary: No costovertebral tender
Musculoskeletal: No Edema
Skin: Warm; No Jaundice
Neuro: Awake, Oriented and Slurred Speech (Chronic ); No Tremors
Psych: Calm; No Agitated
# Acute blood loss anemia/melena/lower GI bleeding
Patient with no nausea/ vomiting/ abdominal discomfort/ pain/ No fever or leukocytosis( wbc was slightly elevate don admission but came down to normal without antibiotics:: Atypical presentation for acute diverticulitis.
No hemodynamic instability on admission
Hemoglobin around 10 on admission and was at 12 in December [address]23
CT of the abdomen and pelvis showed no extravasation, abnormal attenuation in the central lower pelvis between the distal sigmoid colon and rectum. 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
Consulted gastroenterology for further recommendation. Patient reported history of diverticulosis and her last colonoscopy was more than 7 years ago. Stopped screening due to age. She followed with GI doctor at [facility] in the past
Continue with oral PPI
Surgery evaluated the pt, recommended IV Abx for diverticulitis
I d/w surgery and GI doctor. Concern of underlying neoplasm due to clinical history/ CT findings/ recent history on DVT. Will follow
# Cardiac arrhythmia noted on the monitor overnight.
Reviewed EKG with on-call cyber security consultant.
Heart rate is controlled. Patient did not have chest pain or palpitations.
# Recent 12/2023 PE right upper lobe
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
#History of postoperative right lower extremity DVT
-s/p Eliquis which is on hold now
-2D echo 12/24/23: EF 60-65%, mild LVH, mild (29/2.3), mild-mod AI.
-Venous Doppler bilateral legs in 12/2023 showed no DVT
-Cardiothoracic surgery consulted, appreciate evaluation and recommendations -- seen by Dr. Isbell recommended OP follow up.
# Mild hypercalcemia,
#Moderate Cardiomegaly on CT Chest, no signs of acute heart failure.
# Mild hyponatremia, resolved.
#Multilevel thoracic DDD/thoracic kyphosis
#DVT hx right lower extremity 1983
#Meningioma removal x2-no residual meningioma per family at bedside at [facility]
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
with post hemorrhage removal after dvt treatment with heparin 19 years ago
- memory impairment noted.
#Essential HTN
-Nifedipine to 90 mg daily
#Hyperlipidemia
#Hypothyroidism/ thyroid nodules
-Continue levothyroxine
Anxiety
-
OA
Diverticulosis/diverticulitis
Hiatal hernia
Constipation
Right breast CA with radiation lumpectomy 16 years ago
Former smoker quit 1980
Daughter, Laura [phone].
Total time spent to see the patient on the floor, examine the patient, review data and lab results, discuss treatment plan with patient, nursing staff around 55 minutes.
Anticipated Discharge: > 48 hours
Subjective/Interval History
-
Date of Service: January 27, 2024
Objective Data
-
Labs:
Laboratory Results
01/27/24
06:05
WBC 4.9
Hgb 10.8 L
Hct 31.8 L
Plt Count 329
Sodium 138
Potassium 4.0
Chloride 100
Carbon Dioxide 28
BUN 10
Creatinine 0.8
Glucose 146 H
Calcium 10.5 H
Vital Signs:
Vital Signs
Temp Pulse Resp BP Pulse Ox
97.9 F 70 18 145/78 96
01/27/24 07:00 01/27/24 08:55 01/27/24 07:00 01/27/24 08:55 01/27/24 07:00
I&O
01/26/24 01/27/24 01/28/24
06:59 06:59 06:59
Intake Total 1440 / 1440
Output Total 1400 / 1400 1700 / 1700
Balance -1400 / -1400 -260 / -260
--- NOTE | 2024-01-27 10:55 | PTCARENOTE ---
West ordered for this pt. As per hospitalist hold the west insertion. continue st cath.
[2024-01-27] MEDS: TYLENOL 500 MG PO (11:39)
--- NOTE | 2024-01-27 12:59 | W.PN.GS2 ---
Addendum entered and electronically signed by Red Mcdaniel MD 01/27/24 13:15:
OK to restart eliquis.
Addendum entered and electronically signed by Red Mcdaniel MD 01/27/24 13:10:
I saw and examined the patient.
The Can Coverer's note was reviewed and I agree with the note.
Comment: Improving. No complaints this am. William CLD. Exam nt, soft. Has been requiring straight cath, would recommend placing west. Cont IV abx. Adv to FLD.
Original Note:
Today's Communication / Plan
-
full liquids
Assessment / Plan
-
83 yo female with h/o meningioma with removal x2 in the , expressive aphasia, and breast cancer tx in 2012 with surgery/xrt, on Eliquis for PE dx last month (AC on hold) who presented through the ED yesterday with bloody stools. She did note
pain in the LLQ radiating into the back which she notes has improved today. She was recently treated for a UTI with antibiotics initiated just prior to admission with normal UA on presentation.
CT imaging reviewed with findings concerning for diverticulitis with phlegmon without true abscess. necrotic rectal neoplasm within the differential.
Suspect urinary retention secondary to location of inflammation/?mass. Urinary retention present this hospitalization with straight cath again overnight
AFVSS
No leukocytosis
Exam improved
--Ok for full liquids
--Continue ABX
--Would recommend west catheter given recurrent urinary retention
--Trend labs/exams
--No emergent surgery planned at this time, will follow for improvement with optimal medical management.
Subjective Data
-
Date of Service: January 27, 2024
Patient seen and examined at bedside with Dr. Mcdaniel. Denies n/v. Tolerating diet. Passing some flatus/stools. Difficulty voiding
Objective Data
-
Intake and Output
01/26/24 01/27/24 01/28/24
06:59 06:59 06:59
Intake Total 1440 / 1440
Output Total 1400 / 1400 1700 / 1700
Balance -1400 / -1400 -260 / -260
Intake:
Oral fluids 1440 / 1440
Output:
Urine, Voided 300 / 300 900 / 900
Straight cath output 1100 / 1100 800 / 800
Other:
Number of approximated MODERATE 4 1
amounts of urine
Number of approximated LARGE 1
amounts of urine
Number of unmeasured liquid
stools
Rectum 3
Vital Signs
Temp Pulse Resp BP Pulse Ox
97.9 F 70 18 145/78 96
01/27/24 07:00 01/27/24 08:55 01/27/24 07:00 01/27/24 08:55 01/27/24 10:59
Lab Results
01/27/24 06:05
01/27/24 06:05
Calcium 10.5 mg/dl (8.4-10.2) H 01/27/24 06:05
Magnesium 2.1 mg/dl (1.6-2.3) 01/26/24 05:14
Total Bilirubin 0.7 mg/dl (0.2-1.3) 01/25/24 13:21
AST 36 U/L (14-36) 01/25/24 13:21
ALT 31 U/L (0-35) 01/25/24 13:21
Alkaline Phosphatase 166 U/L (38-126) H 01/25/24 13:21
Total Protein 6.5 g/dl (6.3-8.2) 01/25/24 13:21
Albumin 3.8 g/dl (3.5-5.0) 01/25/24 13:21
Physical Exam
-
NAD
ABD soft, nt, nd
[2024-01-27 15:00] VITALS: BP 142/71
--- NOTE | 2024-01-27 15:29 | CM ---
CM reviewed chart, met with patient at bedside to complete IA. Lisa lives at [facility] with her spouse and reports being independent with ambulation, adls and self care. She uses a walker for long distances.
Patient's spouse does all of the cooking, cleaning and laundry or they go to the dining room for some meals. Patient's spouse drives and can get to her appointments and does her shopping.
No hx of VN; if SNF needed she would be agreeable to [facility].
She would be agreeable to SNF if indicated but would like to go to [facility].
Plan: Discharge to home with . Case management will follow to assist with discharge planning.
Ph[facility]acy: [facility] .
PCP: Yrn Brar.
[2024-01-27] MEDS: STERILE WATER FOR INJECTION 10 ML IV (17:18)
[2024-01-27] MEDS: ROCEPHIN 1000 MG IV (17:18)
--- NOTE | 2024-01-27 17:25 | W.PN.GI.CBS2 ---
Today's Communication / Plan
-
flex sig
Assessment / Plan
-
Pt is a 83yo with hx breast CA with prior radiation and lumpectomy, colon polyp last colon about 7 years ago at [facility], meningioma, expressive aphasia, hypothyroidism, HTN, hyperlipidemia and recent PE and mediastinal mass on Eliquis present to
01/24 with rectal bleeding and lower abdominal pain. Bleeding began yesterday with larger volume of reg blood with 2 episodes. She also admits to lower abdominal pain in LLQ with some radiation to back. She had recent UTI with urinary burning
with abx started prior to admission. On admission CTA completed with bleeding with no active GI bleed but concern for central lower pelvis between sigmoid and rectal with inflammatory process concern for diverticulitis with abscess and did also
question possible necrotic primary neoplasm with extra luminal involvement. Also noted hepatic cyst, pancreatic cyst, and renal cyst/angiomyolipoma with t/c eventual MRI. On admission hbg 10.8 prior 12.4 on 12/23, WBC 12,200.
-rectal bleeding
-recent PE with newly added Eliquis
-abdominal pain with abnormal CT with concern for diverticulitis with abscess and ? necrotic neoplasm
-mild leukocytosis
-mild anemia
-recent UTI with neg urine on admission
-afib/RVR noted on admission
-mediastinal mass with recent eval with Dr. Isbell
-pancreatic cyst
other medical problems:
-hx colon polyps
-DDD
-hx DVT 1984
-breast CA lumpectomy/radiation
-expressive aphasia
-meningioma with removal x 2
-HTN
-anxiety
-HH
-multiple drug allergies
PLAN:
continue antibiotics
d/w Marni Arango who is concerned that she needs eliquis for PE and her main ongoing problem is rectal bleeding. Unsure if this is a mass bleeding that is leading to the inflammatory reaction instead of true diverticulitis. Since the area of concern
is in the distal sigmoid, proximal rectum it is reasonable to do an unprepped flex sig just to this area to ensure this isn't a mass. There is an increased risk for worsening diverticulitis/perforation but d/w Laura daughter and pts who
understand and want to pursue.
hold eliquis for procedure
Subjective
Subjective
Date of Service: January 27, 2024
Pt w/o pain but does intermittent have rectal bleeding
Objective
Data Reviewed
Laboratory Data:
Laboratory Results
01/27/24 06:05
01/27/24 06:05
Laboratory Results
Magnesium 2.1 mg/dl (1.6-2.3) 01/26/24 05:14
Total Bilirubin 0.7 mg/dl (0.2-1.3) 01/25/24 13:21
AST 36 U/L (14-36) 01/25/24 13:21
ALT 31 U/L (0-35) 01/25/24 13:21
Alkaline Phosphatase 166 U/L (38-126) H 01/25/24 13:21
Vital Signs and I&O:
Vital Signs
Temp Pulse Resp BP Pulse Ox
97.9 F 54 18 142/71 96
01/27/24 15:00 01/27/24 15:00 01/27/24 15:00 01/27/24 15:00 01/27/24 15:00
I&O
01/26/24 01/27/24 01/28/24
06:59 06:59 06:59
Intake Total 1440 / 1440 240 / 240
Output Total 1400 / 1400 1700 / 1700 500 / 500
Balance -1400 / -1400 -260 / -260 -260 / -260
Physical Exam
Physical Exam
GI: Soft, Non Distended and Non Tender
[2024-01-27 19:21] VITALS: BP 152/75
[2024-01-27 23:19] VITALS: BP 162/85
[2024-01-28] VITALS (10 sets, daily range): BP systolic 128–167; BP diastolic 65–97; PULSE 62; O2SAT 94
[2024-01-28] MEDS: FLAGYL 500 MG 100 IV ×3 (05:03→20:50)
[2024-01-28] MEDS: SYNTHROID 150 MCG PO (05:03)
--- NOTE | 2024-01-28 07:31 | W.PN.UPDATE ---
Update Note
Progress Note Update
83F w/o prior h/o urinary retention presenting w/ acute urinary retention requiring multiple straight caths.
CTAP w/ abnormal findings b/w distal sigmoid colon and rectum - infection vs. inflammatory vs. neoplasm.
Per GI, h/o diverticulosis w/ last c-scope >7 yrs ago.
01/27: s/p flexible sigmoidoscopy w/ possible diverticulitis, cannot r/o malignancy.
Plan for antibiotic course and repeat CT imaging as outpatient.
No bladder pathology noted on CT imaging.
Given adjacent inflammatory changes in sigmoid colon, advise outpatient voiding trial.
Plan:
- maintain [place] catheter
- outpatient voiding trial in 7 days
D/w Hospitalist.
[2024-01-28 07:42] LABS: Hematocrit 31.5 % (37.0-47.0); Hemoglobin 10.6 g/dL (12.0-16.0); Mean Corp Hgb Conc. 33.7 g/dL (33.0-37.0); Mean Corpuscular Volume 92.1 fL (81.0-99.0); Mean Platelet Volume 9.9 fL (7.4-10.4); Platelet Count 320 10^3/uL (130-400); Red Blood Cell Count 3.42 10^6/uL (4.20-5.40); White Blood Cell Count 4.2 10^3/uL (4.8-10.8)
[2024-01-28 08:16] LABS: Blood Urea Nitrogen 11 mg/dl (7-17); Calcium 10.3 mg/dl (8.4-10.2); Carbon Dioxide 28 mmol/L (22-30); Chloride 100 mmol/L (98-107); Estimated Creatinine Clearance 48 ml/min; Glucose 123 mg/dl (70-99); Potassium 4.2 mmol/L (3.5-5.1); Sodium 136 mmol/L (135-145); eGFR > 60.00
[2024-01-28] MEDS: PROTONIX 40 MG PO (08:41)
[2024-01-28] MEDS: CRESTOR 5 MG PO (08:42)
[2024-01-28] MEDS: CELEXA 20 MG PO (08:42)
[2024-01-28] MEDS: PROCARDIA XL (EXTENDED RELEASE) 90 MG PO (08:42)
[2024-01-28] MEDS: DIOVAN 160 MG PO (08:42)
--- NOTE | 2024-01-28 10:08 | W.PN.UPDATE ---
Update Note
Progress Note Update
Flex sig only to 10-15cm in light of ongoing diverticulitis done to r/o underlying mass in light of rectal bleeding and need for anticoagulation for PE
- between 10-15 cm there is an erythematous area that is moderate smooth with central ulcer, I did take one biopsy of the erythema. My guess is this severe diverticulitis although can't r/o it is an malignant ulcer. I didn't want to directly
biopsy that area. D/w daughter and Dr reeves primary
- continue antibiotics
- rescan in future
- if looks worse may need to repeat flex sig, if improving assume diverticulitis or repeat flex sig
- risk/benefit regarding restarting anticoagulation
will sign off call with questions
--- NOTE | 2024-01-28 11:46 | PTCARENOTE ---
pt back from GI lab s/p Flex sigmoid. pt is AAO*2 dis to time. pt's baseline. pt comfortable, no pain or discomfort. pt back on full liq diet. plan of care ongoing.
--- NOTE | 2024-01-28 12:34 | W.PN.HOSP.TC ---
Addendum entered and electronically signed by Davin Huang MD 01/29/24 08:14:
CODE STATUS discussed with patient and son, wants DNR. CODE STATUS changed. I and pulmonary both spoke with patient and her family regarding high risk of bleeding with eliquis. Plan for IVC filteR. IR consulted.
Original Note:
Today's Communication/Plan
-
Monitor vital signs see plan
Pulmonary to see today regarding need for anticoagulation
Continue to monitor hemoglobin
Continue antibiotics
start fulls
Discussed with daughter over the phone
Assessment / Plan
Assessment / Plan
Physical Exam
General: No Apparent Distress and Comfortable
HEENT: Moist mucous membranes and Atraumatic
Respiratory: Clear
Cardiac: S1/S2 and Regular Rhythm
GI: Soft and not tender.
Rectal: no active bleeding.
Genito-urinary: No costovertebral tender
Musculoskeletal: No Edema
Skin: Warm; No Jaundice
Neuro: Awake, Oriented and Slurred Speech (Chronic ); No Tremors
Psych: Calm; No Agitated
# Acute blood loss anemia/melena/lower GI bleeding
Patient with no nausea/ vomiting/ abdominal discomfort/ pain/ No fever or leukocytosis( wbc was slightly elevate don admission but came down to normal without antibiotics:: Atypical presentation for acute diverticulitis.
No hemodynamic instability on admission
Hemoglobin around 10 on admission and was at 12 in December [address]
CT of the abdomen and pelvis showed no extravasation, abnormal attenuation in the central lower pelvis between the distal sigmoid colon and rectum. 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
Consulted gastroenterology for further recommendation. Patient reported history of diverticulosis and her last colonoscopy was more than 7 years ago. Stopped screening due to age. She followed with GI doctor at [facility] in the past. s/p Flex sig
01/27 with possible diverticulitis however cannot rule out malignancy completely. Spoke with Dr. Graham from GI and will currently treat with antibiotics with patient to have repeat CT scan in 4 to 6 weeks. GI also think patient would likely
rebleed once Eliquis is started. Asked pulmonary to evaluate for need for possible IVC filter. This was also discussed with daughter over the phone
Continue with oral PPI
Surgery evaluated the pt, recommended IV Abx for diverticulitis
surgery and GI following. Concern of underlying neoplasm due to clinical history/ CT findings/ recent history on DVT. Will follow
# Cardiac arrhythmia noted on the monitor overnight.
Reviewed EKG with on-call racquet maker.
Heart rate is controlled. Patient did not have chest pain or palpitations.
Mild hypercalcemia
monitor
# Recent 12/2023 PE right upper lobe
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
#History of postoperative right lower extremity DVT
-s/p Eliquis which is on hold now
-2D echo 12/24/23: EF 60-65%, mild LVH, mild (29/17/2.3), mild-mod AI.
-Venous Doppler bilateral legs in 12/2023 showed no DVT
-Cardiothoracic surgery consulted, appreciate evaluation and recommendations -- seen by Dr. Isbell recommended OP follow up.
# Mild hypercalcemia,
#Moderate Cardiomegaly on CT Chest, no signs of acute heart failure.
# Mild hyponatremia, resolved.
#Multilevel thoracic DDD/thoracic kyphosis
#DVT hx right lower extremity 1983
#Meningioma removal x2-no residual meningioma per family at bedside at [facility]
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
with post hemorrhage removal after dvt treatment with heparin 19 years ago
- memory impairment noted.
#Essential HTN
-Nifedipine to 90 mg daily
#Hyperlipidemia
#Hypothyroidism/ thyroid nodules
-Continue levothyroxine
Anxiety
-
OA
Diverticulosis/diverticulitis
Hiatal hernia
Constipation
Right breast CA with radiation lumpectomy 16 years ago
Former smoker quit 1980
DaughterLaura [phone].
Total time spent to see the patient on the floor, examine the patient, review data and lab results, discuss treatment plan with patient, nursing staff around 53 minutes.
Anticipated Discharge: 24 - 48 hours
Subjective/Interval History
-
Date of Service: January 28, 2024
denies pain
Objective Data
-
Labs:
Laboratory Results
01/28/24
06:35
WBC 4.2 L
Hgb 10.6 L
Hct 31.5 L
Plt Count 320
Sodium 136
Potassium 4.2
Chloride 100
Carbon Dioxide 28
BUN 11
Creatinine 0.9
Glucose 123 H
Calcium 10.3 H
Vital Signs:
Vital Signs
Temp Pulse Resp BP Pulse Ox
98.0 F 64 18 131/73 95
01/28/24 10:57 01/28/24 10:57 01/28/24 10:57 01/28/24 10:57 01/28/24 10:57
I&O
01/27/24 01/28/24 01/29/24
06:59 06:59 06:59
Intake Total 1440 / 1440 240 / 240
Output Total 1700 / 1700 1400 / 1400
Balance -260 / -260 -1160 / -1160
--- NOTE | 2024-01-28 13:55 | CON.PUL ---
Consultation
Consultation Request
Date/Time Consultation Requested: 01/27
Date/Time Consultation Performed: 01/27
Reason for Consultation: History of PE
Medical History
-
History of Present Illness:
History obtained from the chart, medical records, family at bedside (grandson, , friend and 2 children by phone). Patient with aphasia and is able to answer simple questions but and unable to provide additional history. 83-year-old female
with complex medical history with recent diagnosis of acute pulm embolism December 2023. Patient presently presents with blood in stool and lower abdominal discomfort. Per records, there may have been some black stool for a few days. Admission
hemoglobin 10.8. Upon arrival to [facility] on 01/24, afebrile, pulse 66, breathing at 18, blood pressure 151/77, 96%. 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 Anticoagulation was held and
plan for GI evaluation noted. We are asked to comment on anticoagulation from my embolism and possible IVC filter placement
Presently, patient describes some mild thirsty but denies shortness of breath, cough, coughing up blood, nausea
.
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
nodules, history of hiatal hernia/diverticulosis/diverticulitis. History of right breast cancer with radiation/lumpectomy 2007
Past Medical History
Past Medical History: None (See above)
Past Surgical History: None (See above)
Social History
Tobacco: Former Smoker (Quit 1980)
Alcohol: None
Drug: None
Personal:
Living: With Family (Lives with )
Employment: Retired
Family History
Family History: Other (Significant cancer history. Mother pancreatic cancer, father MVA, brother living history of prostate cancer, sister living history of lymphoma, patient's son living history of breast cancer, renal carcinoma,
thyroid cancer)
Allergies / Home Medications
Allergies
Allergy/AdvReac Type Severity Reaction Status Date / Time
aminophylline Allergy Rash Verified 01/25/24 13:01
amlodipine Allergy Swelling Verified 01/25/24 13:01
amlodipine besylate Allergy edema Verified 01/25/24 13:01
[From Norvasc]
atenolol Allergy 'felt Verified 01/25/24 13:01
lousy'
codeine Allergy constipatio Verified 01/25/24 13:01
n
cortisone Allergy Rash Verified 01/25/24 13:01
diltiazem Allergy edema Verified 01/25/24 13:01
dipyridamole Allergy Rash Verified 01/25/24 13:01
[From Persantine]
irbesartan [From Avapro] Allergy palpitation Verified 01/25/24 13:01
s
olmesartan medoxomil Allergy dizziness Verified 01/25/24 13:01
[From Benicar]
Penicillins Allergy Rash Verified 01/25/24 13:01
phenytoin sodium Allergy Rash Verified 01/25/24 13:01
[From Dilantin]
phenytoin sodium extended Allergy Rash Verified 01/25/24 13:01
[From Dilantin]
prednisone Allergy Rash Verified 01/25/24 13:01
shellfish derived Allergy Welts Verified 01/25/24 13:01
simvastatin [From Zocor] Allergy muscle pain Verified 01/25/24 13:01
Sulfa (Sulfonamide Allergy Unknown Verified 01/25/24 13:01
Antibiotics)
Home Medications
�Medication �Instructions �Recorded �Confirmed �Last Taken �Type
cholecalciferol (vitamin D3) 50 2,000 unit PO DAILY Supplement 03/07/16 01/25/24 03/19/16 History
mcg (2,000 unit) tablet
furosemide 20 mg tablet 20 mg PO DAILY Fluid 03/07/16 01/25/24 12/21/23 History
Retention/Swelling
levothyroxine 150 mcg tablet 150 mcg PO DAILY Thyroid 03/07/16 01/25/24 12/21/23 07:00 History
magnesium oxide 400 mg PO DAILY Supplement 03/07/16 01/25/24 12/21/23 09:00 History
omeprazole 40 mg capsule,delayed 40 mg PO BID Gastrointestinal Issue 03/07/16 01/25/24 12/21/23 10:00 History
release
rosuvastatin 5 mg tablet (Crestor) 5 mg PO DAILY High Cholesterol 03/07/16 01/25/24 12/21/23 09:00 History
nifedipine 90 mg tablet,extended 90 mg PO DAILY #30 tabs 12/24/23 01/25/24 Unknown Rx
release
acetaminophen 500 mg tablet 500 mg PO Q6HPRN PRN mild pain 01/25/24 01/25/24 Unknown History
(Tylenol Extra Strength)
apixaban 5 mg tablet (Eliquis) 5 mg PO BID Blood Clot 01/25/24 01/25/24 Unknown History
Prevention/Tx
ascorbic acid (vitamin C) 500 mg 500 mg PO DAILY Supplement 01/25/24 01/25/24 Unknown History
tablet (Vitamin C)
calcium 600 mg (as carbonate)-vit 1 tab PO DAILY Supplement 01/25/24 01/25/24 Unknown History
D3 20 mcg (800 unit) chewable
tablet (Caltrate plus D)
citalopram 20 mg tablet 20 mg PO DAILY Mental 01/25/24 01/25/24 Unknown History
Health/Anxiety
cyanocobalamin (vitamin B-12) 500 500 mcg PO DAILY Supplement 01/25/24 01/25/24 Unknown History
mcg tablet
fexofenadine 180 mg tablet 180 mg PO DAILY Allergies 01/25/24 01/25/24 Unknown History
folic acid 1 mg tablet 1 mg PO DAILY Supplement 01/25/24 01/25/24 Unknown History
valsartan 160 mg tablet 160 mg PO DAILY Blood Pressure 01/25/24 01/25/24 Unknown History
Review of Systems
-
All other systems: Negative unless noted
Vitals / Labs / Diagnostic Testing
Vital Signs
Temp Pulse Resp BP Pulse Ox
98.0 F 64 18 131/73 98
01/28/24 10:57 01/28/24 10:57 01/28/24 10:57 01/28/24 10:57 01/28/24 12:57
Lab Data
01/28/24 06:35
01/28/24 06:35
Diagnostic Testing:
Physical Exam
-
HEENT: Normocephalic and Anicteric
Cardiovascular: S1/S2, Regular Rhythm, Murmur (n) and Rub (n)
Respiratory: Wheeze (n), Rales (n), Rhonchi (n) and Non-Labored Respirations
GI: Soft, Non Distended (Obese) and Non Tender
Neurology: Awake, Alert and Other (Aphasia, moves all extremities)
Skin: Other (Scattered bruises)
General: Comfortable
Assessment
-
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 Underwent flexible sigmoidoscopy found to have
central ulcer and severe diverticulitis. We are asked to comment on treatment for acute PE in the setting of GI bleed
Acute rectal bleeding
Suspected diverticulitis
Identified mucosal ulcer on flexible sigmoidoscopy 01/27
Dark black stool for few days
Recent acute PE December 2023
On anticoagulation
History of DVT
Conditions present prior to admission
History of breast cancer, right lumpectomy/radiation
Expressive aphasia secondary to meningioma
Hypertension/hyperlipidemia
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
History of pancreatic cyst
Strong family history of cancer (pancreatic, prostate, lymphoma, breast, renal, thyroid)
Plan/recommendations
At this time, patient with complex history
Salient features include recent acute PE with history of DVT in the past, history of breast cancer, anterior mediastinal mass, GI bleeding complicated by chronic anticoagulation
We are asked to comment on IVC filter placement
Reviewed at length with patient, , both children by phone
Reviewed pros and cons of IVC filter placement. Reviewed that this is not one of the percent protective but may allow for interruption of anticoagulation or remaining off anticoagulation depending on workup necessary
Also reviewed with family possibility of underlying occult malignancy given recent acute PE, history of DVT and mediastinal mass. Recent flexible sigmoidoscopy findings noted. There is a question of underlying GI malignancy? GI is following as
well as colorectal.
After an extensive discussion, family is leaning towards placement IVC filter. They understand that this may cause problems with phlebitis down the road depending on hypercoagulable state.
They also understand that it is possibly reversible depending on plans for anticoagulation.
Throughout discussion above, they also confirmed that patient is DNR and would not want mechanical ventilation, CPR
Son would like to confirm above plan with primary service (Dr. Huang) and asked that he contact him
I will relay this to the primary service
Based on above, would consider placement of IVC filter and discontinuation of anticoagulation at least in the short-term pending additional workup for GI bleed, underlying occult malignancy etc.
All questions answered
--- NOTE | 2024-01-28 14:14 | W.PN.CRS1 ---
Today's Communication / Plan
-
continue antibiotics
fulls
Assessment/Plan
-
PLAN:
-Continue antibiotics
-Advanced to a full liquid diet today
-No mass found on flex sig, will treat as diverticulitis
-No plans for surgery
-Flex sig biopsies pending
-Pulmonary c/s for anticogulation given PE one month ago - considering IVC filter placement, family deciding
Subjective Data
Subjective Data
Date of Service: January 28, 2024
Objective Data
-
Vital Signs
Temp Pulse Resp BP Pulse Ox
98.0 F 64 18 131/73 98
01/28/24 10:57 01/28/24 10:57 01/28/24 10:57 01/28/24 10:57 01/28/24 12:57
Intake & Output
01/27/24 01/28/24 01/29/24
06:59 06:59 06:59
Intake Total 1440 / 1440 240 / 240
Output Total 1700 / 1700 1400 / 1400
Balance -260 / -260 -1160 / -1160
Intake:
Oral fluids 1440 / 1440 240 / 240
Output:
Urine, Voided 900 / 900 900 / 900
Straight cath output 800 / 800 500 / 500
Other:
Number of approximated MODERATE 1 4
amounts of urine
Number of approximated LARGE 1
amounts of urine
How many times incontinent 1
MODERATE amount urine
Lab Results
01/28/24 06:35
01/28/24 06:35
Physical Exam
-
General: No Acute Distress and AOx3
Abdomen: Soft, Non Distended and Non Tender
Skin: Warm and Dry
--- NOTE | 2024-01-28 16:53 | CM ---
Lives at [facility] .
Needs PT eval for dc planning.
PLAn PT for dc planning
[2024-01-28] MEDS: ROCEPHIN 1000 MG IV (18:03)
[2024-01-28] MEDS: STERILE WATER FOR INJECTION 10 ML IV (18:04)
[2024-01-29] VITALS (9 sets, daily range): BP systolic 55–181; BP diastolic 58–89; PULSE 60; O2SAT 97
[2024-01-29] MEDS: FLAGYL 500 MG 100 IV ×2 (03:18→14:58)
[2024-01-29] MEDS: SYNTHROID 150 MCG PO (04:22)
[2024-01-29] MEDS: TYLENOL 500 MG PO (04:22)
[2024-01-29 07:48] LABS: % Basophils 0.6 % (0-2); % Eosinophils 4.2 % (0-6); % Immature Granulocytes 0.8 % (0-0.5); % Lymphocytes 30.3 % (20.5-51.1); % Monocytes 12.7 % (1.7-9.3); % Neutrophils 51.4 % (42.2-75.2); Absolute Eosinophils 0.2 10^3/uL (0-0.7); Absolute Lymphocytes 1.1 10^3/uL (1.2-3.4); Absolute Monocytes 0.5 10^3/uL (0.1-0.6); Absolute Neutrophils 1.8 10^3/uL (1.4-6.5); Hematocrit 33.1 % (37.0-47.0); Hemoglobin 11.4 g/dL (12.0-16.0); INR 1.11; Mean Corp Hgb Conc. 34.4 g/dL (33.0-37.0); Mean Corpuscular Hgb 31.6 pg (27.0-31.0); Mean Corpuscular Volume 91.7 fL (81.0-99.0); Mean Platelet Volume 9.7 fL (7.4-10.4); Nucleated Red Blood Cells % 0 %; PT 14.1 Sec (11.4-14.6); Platelet Count 317 10^3/uL (130-400); Red Blood Cell Count 3.61 10^6/uL (4.20-5.40); Red Cell Dist. Width 12.9 % (11.5-14.5); White Blood Cell Count 3.5 10^3/uL (4.8-10.8)
--- NOTE | 2024-01-29 07:53 | W.PN.UPDATE ---
Update Note
Progress Note Update
Patient seen and examined this AM.
Voiding w/o Wadsworth catheter in place.
Denies dysuria and hematuria.
Continue volitional voiding
F/U with GI as recommended
Urology will sign off
[2024-01-29 08:22] LABS: Blood Urea Nitrogen 12 mg/dl (7-17); Calcium 10.2 mg/dl (8.4-10.2); Carbon Dioxide 29 mmol/L (22-30); Chloride 101 mmol/L (98-107); Estimated Creatinine Clearance 48 ml/min; Glucose 121 mg/dl (70-99); Potassium 4.2 mmol/L (3.5-5.1); Sodium 141 mmol/L (135-145); eGFR > 60.00
[2024-01-29] MEDS: DIOVAN 160 MG PO (09:04)
[2024-01-29] MEDS: CELEXA 20 MG PO (09:05)
[2024-01-29] MEDS: PROTONIX 40 MG PO (09:05)
[2024-01-29] MEDS: PROCARDIA XL (EXTENDED RELEASE) 90 MG PO (09:05)
[2024-01-29] MEDS: CRESTOR 5 MG PO (09:05)
--- NOTE | 2024-01-29 11:36 | W.PN.PUL3 ---
Today's Communication / Plan
-
IVC filter today
Assessment
-
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 Underwent flexible sigmoidoscopy found to have
central ulcer and severe diverticulitis. We are asked to comment on treatment for acute PE in the setting of GI bleed
Acute rectal bleeding
Suspected diverticulitis
Identified mucosal ulcer on flexible sigmoidoscopy 01/27
Dark black stool for few days
Recent acute PE December 2023
On anticoagulation
History of DVT
Conditions present prior to admission
History of breast cancer, right lumpectomy/radiation
Expressive aphasia secondary to meningioma
Hypertension/hyperlipidemia
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
History of pancreatic cyst
Strong family history of cancer (pancreatic, prostate, lymphoma, breast, renal, thyroid)
Plan/recommendations
At this time, patient with complex history
Salient features include recent acute PE with history of DVT in the past, history of breast cancer, anterior mediastinal mass, GI bleeding complicated by chronic anticoagulation
Plan for IVC filter placement noted today
Moving forward
Continue with supportive care
Urology and colorectal surgery have signed off. Diet advanced
Reviewed at length with patient, , both children by phone on 01/27
Reviewed pros and cons of IVC filter placement. Reviewed that this is not one of the percent protective but may allow for interruption of anticoagulation or remaining off anticoagulation depending on workup necessary
Also reviewed with family possibility of underlying occult malignancy given recent acute PE, history of DVT and mediastinal mass.
After an extensive discussion, family is leaning towards placement IVC filter, which is planned today. They understand that this may cause problems with phlebitis down the road depending on hypercoagulable state.
They also understand that it is possibly reversible depending on plans for anticoagulation.
Throughout discussion above, they also confirmed that patient is DNR and would not want mechanical ventilation, CPR
Will follow briefly
Subjective Data
-
Date of Service:
Date of Service: January 29, 2024
Subjective:
Patient is without complaints. Evaluated earlier today. Sitting in chair, on room air. Denies shortness of breath, chest pain
Objective Data
Data Reviewed
Vital Signs / I&O / Oxygen:
Vital Signs
Temp Pulse Resp BP Pulse Ox
97.4 F 54 16 165/85 97
01/29/24 07:08 01/29/24 09:05 01/29/24 07:08 01/29/24 09:05 01/29/24 11:14
Intake and Output
01/28/24 01/29/24 01/30/24
06:59 06:59 06:59
Intake Total 240 / 240 720 / 720
Output Total 1400 / 1400 800 / 800
Balance -1160 / -1160 -80 / -80
SaO2 97
Physical Exam
General: Comfortable
HEENT: Normocephalic
Cardiovascular: S1-S2, Regular Rhythm, Murmur (n) and Rub (n)
Respiratory: Wheeze, Crackles (n), Rhonchi (n) and Non-Labored Respirations
GI: Soft, Non Distended and Non Tender
Neurology: Awake, Alert and No Motor Deficits (Aphasia)
Skin: Cyanosis (n) and Jaundice (n)
Labs/Micro/Reports
Lab Data
01/29/24 07:23
01/29/24 07:23
Laboratory Results
01/29/24
07:23
PT 14.1
INR 1.11
--- NOTE | 2024-01-29 11:45 | W.PN.HOSP.TC ---
Today's Communication/Plan
-
Monitor vital signs
see plan
Continue with antibiotics
Advance diet to low residue
IR for IVC filter today
Assessment / Plan
Assessment / Plan
Physical Exam
General: No Apparent Distress and Comfortable
HEENT: Moist mucous membranes and Atraumatic
Respiratory: Clear
Cardiac: S1/S2 and Regular Rhythm
GI: Soft and not tender.
Rectal: no active bleeding.
Genito-urinary: No costovertebral tender
Musculoskeletal: No Edema
Skin: Warm; No Jaundice
Neuro: Awake, Oriented and Slurred Speech (Chronic ); No Tremors
Psych: Calm; No Agitated
# Acute blood loss anemia/melena/lower GI bleeding
Patient with no nausea/ vomiting/ abdominal discomfort/ pain/ No fever or leukocytosis( wbc was slightly elevate don admission but came down to normal without antibiotics:: Atypical presentation for acute diverticulitis.
No hemodynamic instability on admission
Hemoglobin around 10 on admission and was at 12 in December [address]23
CT of the abdomen and pelvis showed no extravasation, abnormal attenuation in the central lower pelvis between the distal sigmoid colon and rectum. 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
Consulted gastroenterology for further recommendation. Patient reported history of diverticulosis and her last colonoscopy was more than 7 years ago. Stopped screening due to age. She followed with GI doctor at [place] in the past. s/p Flex sig
01/27 with possible diverticulitis however cannot rule out malignancy completely. Spoke with Dr. Graham from GI and will currently treat with antibiotics with patient to have repeat CT scan in 4 to 6 weeks. GI also think patient would likely
rebleed once Eliquis is started. Asked pulmonary to evaluate for need for possible IVC filter. This was also discussed with daughter over the phone
CODE STATUS discussed with patient and son, wants DNR. CODE STATUS changed. I and pulmonary both spoke with patient and her family regarding high risk of bleeding with eliquis. Plan for IVC filter. IR consulted.
Continue with oral PPI
Surgery evaluated the pt, recommended IV Abx for diverticulitis. now on LRD
surgery and GI following. Concern of underlying neoplasm due to clinical history/ CT findings/ recent history on DVT. Will follow
# Cardiac arrhythmia noted on the monitor overnight.
Reviewed EKG with on-call wireless operator.
Heart rate is controlled. Patient did not have chest pain or palpitations.
Mild hypercalcemia
monitor
# Recent 12/2023 PE right upper lobe
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
#History of postoperative right lower extremity DVT
-s/p Eliquis which is on hold now; pulmonary following. now getting IVC filter and will continue to hold eliquis. Patient will follow-up with GI outpatient
-2D echo 12/24/23: EF 60-65%, mild LVH, mild (29/17/2.3), mild-mod AI.
-Venous Doppler bilateral legs in 12/2023 showed no DVT
-Cardiothoracic surgery consulted, appreciate evaluation and recommendations -- seen by Dr. Isbell recommended OP follow up.
# Mild hypercalcemia,
#Moderate Cardiomegaly on CT Chest, no signs of acute heart failure.
# Mild hyponatremia, resolved.
#Multilevel thoracic DDD/thoracic kyphosis
#DVT hx right lower extremity 1983
#Meningioma removal x2-no residual meningioma per family at bedside at [facility]
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
with post hemorrhage removal after dvt treatment with heparin 19 years ago
- memory impairment noted.
#Essential HTN
-Nifedipine to 90 mg daily
#Hyperlipidemia
#Hypothyroidism/ thyroid nodules
-Continue levothyroxine
Anxiety
-
OA
Diverticulosis/diverticulitis
Hiatal hernia
Constipation
Right breast CA with radiation lumpectomy 16 years ago
Former smoker quit 1980
CODE STATUS
DNR
DaughterLaura [phone].
Son [phone]
Total time spent to see the patient on the floor, examine the patient, review data and lab results, discuss treatment plan with patient, nursing staff around 51 minutes.
Anticipated Discharge: 24 - 48 hours
Subjective/Interval History
-
Date of Service: January 29, 2024
denies pain
Objective Data
-
Labs:
Laboratory Results
01/29/24
07:23
WBC 3.5 L
Hgb 11.4 L
Hct 33.1 L
Plt Count 317
PT 14.1
INR 1.11
Sodium 141
Potassium 4.2
Chloride 101
Carbon Dioxide 29
BUN 12
Creatinine 0.9
Glucose 121 H
Calcium 10.2
Vital Signs:
Vital Signs
Temp Pulse Resp BP Pulse Ox
97.4 F 54 16 165/85 97
01/29/24 07:08 01/29/24 09:05 01/29/24 07:08 01/29/24 09:05 01/29/24 11:14
I&O
01/28/24 01/29/24 01/30/24
06:59 06:59 06:59
Intake Total 240 / 240 720 / 720
Output Total 1400 / 1400 800 / 800
Balance -1160 / -1160 -80 / -80
--- NOTE | 2024-01-29 13:25 | W.PN.CRS1 ---
Today's Communication / Plan
-
Low residue diet
Will sign off please contact if further surgical issues arise.
Assessment/Plan
-
PLAN:
-Continue antibiotics
-Advanced to a low residue diet
-No mass found on flex sig, treat as diverticulitis
-Flex sig biopsies pending
-There are no plans for surgery at this time. Continue course of antibiotics to treat for diverticulitis. If surgical issues arise, please contact our service. Will sign off.
Subjective Data
Subjective Data
Date of Service: January 29, 2024
Patient has expressive aphasia. When asked if she has pain she says no.
Objective Data
-
Vital Signs
Temp Pulse Resp BP Pulse Ox
97.7 F 55 17 118/62 95
01/29/24 13:16 01/29/24 13:16 01/29/24 13:16 01/29/24 13:16 01/29/24 13:16
Intake & Output
01/28/24 01/29/24 01/30/24
06:59 06:59 06:59
Intake Total 240 / 240 720 / 720
Output Total 1400 / 1400 800 / 800
Balance -1160 / -1160 -80 / -80
Intake:
Oral fluids 240 / 240 720 / 720
Output:
Urine, Voided 900 / 900 800 / 800
Straight cath output 500 / 500
Other:
Number of approximated MODERATE 4 4
amounts of urine
How many times incontinent 1
MODERATE amount urine
Lab Results
01/29/24 07:23
01/29/24 07:23
Physical Exam
-
General: No Acute Distress and AOx3
Abdomen: Soft, Non Distended and Tender (Mild left lower quadrant)
Skin: Warm and Dry
--- NOTE | 2024-01-29 16:01 | PTCARENOTE ---
Patient status post IVC filter via right groin. Vital signs stable. Denies complaints. Patient understands that she is on bedrest with HOB flat until 1700. No bleeding or other complications noted.
[2024-01-29] MEDS: ROCEPHIN 1000 MG IV (17:59)
[2024-01-29] MEDS: STERILE WATER FOR INJECTION 10 ML IV (17:59)
[2024-01-30] MEDS: FLAGYL 500 MG 100 IV ×2 (00:17→08:34)
[2024-01-30 03:43] VITALS: BP 166/76
[2024-01-30] MEDS: SYNTHROID 150 MCG PO (05:28)
[2024-01-30 07:58] VITALS: BP 185/84
[2024-01-30 08:05] LABS: % Basophils 0.5 % (0-2); % Eosinophils 3.5 % (0-6); % Lymphocytes 28.4 % (20.5-51.1); % Monocytes 7.5 % (1.7-9.3); % Neutrophils 59.1 % (42.2-75.2); Absolute Eosinophils 0.1 10^3/uL (0-0.7); Absolute Lymphocytes 1.1 10^3/uL (1.2-3.4); Absolute Monocytes 0.3 10^3/uL (0.1-0.6); Absolute Neutrophils 2.4 10^3/uL (1.4-6.5); Hemoglobin 11.2 g/dL (12.0-16.0); Mean Corp Hgb Conc. 33.9 g/dL (33.0-37.0); Mean Corpuscular Hgb 31.3 pg (27.0-31.0); Mean Corpuscular Volume 92.2 fL (81.0-99.0); Mean Platelet Volume 9.6 fL (7.4-10.4); Nucleated Red Blood Cells % 0 %; Platelet Count 338 10^3/uL (130-400); Red Blood Cell Count 3.58 10^6/uL (4.20-5.40)
[2024-01-30] MEDS: PROCARDIA XL (EXTENDED RELEASE) 90 MG PO (08:38)
[2024-01-30] MEDS: DIOVAN 160 MG PO (08:38)
[2024-01-30] MEDS: PROTONIX 40 MG PO (08:38)
[2024-01-30] MEDS: CELEXA 20 MG PO (08:38)
[2024-01-30] MEDS: CRESTOR 5 MG PO (08:38)
[2024-01-30 08:51] LABS: Blood Urea Nitrogen 14 mg/dl (7-17); Calcium 10.2 mg/dl (8.4-10.2); Carbon Dioxide 28 mmol/L (22-30); Chloride 101 mmol/L (98-107); Estimated Creatinine Clearance 48 ml/min; Glucose 124 mg/dl (70-99); Potassium 4.4 mmol/L (3.5-5.1); Sodium 139 mmol/L (135-145); eGFR > 60.00
[2024-01-30 10:12] LABS: Magnesium 2.1 mg/dl (1.6-2.3)
--- NOTE | 2024-01-30 10:54 | W.PN.PUL3 ---
Today's Communication / Plan
-
Remains off anticoagulation
IVC filter in place
Strongly recommend follow-up with pulmonary in 3 months regarding IVC filter management
Will need to decide whether retrieving IVC filter is an option at that time
Follow-up information left in chart. We will sign off. Please call with questions
Assessment
-
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 Underwent flexible sigmoidoscopy found to have
central ulcer and severe diverticulitis. We are asked to comment on treatment for acute PE in the setting of GI bleed
Acute rectal bleeding
Suspected diverticulitis
Identified mucosal ulcer on flexible sigmoidoscopy 01/27
Dark black stool for few days
Recent acute PE December 2023
On anticoagulation
History of DVT 1980s
s/p IVC filter placement 01/29/2024
Secondary to GI bleeding
Conditions present prior to admission
History of breast cancer, right lumpectomy/radiation
Expressive aphasia secondary to meningioma
Hypertension/hyperlipidemia
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
History of pancreatic cyst
Strong family history of cancer (pancreatic, prostate, lymphoma, breast, renal, thyroid)
Plan/recommendations
At this time, patient with complex history
Salient features include recent acute PE with history of DVT in the past, history of breast cancer, anterior mediastinal mass, GI bleeding complicated by chronic anticoagulation
Plan for IVC filter placement noted today
Moving forward
Continue with supportive care
Urology and colorectal surgery have signed off. Diet advanced
Reviewed at length with patient, , both children by phone on 01/27
Status post IVC filter placement 01/28
Reviewed pros and cons of IVC filter placement. Reviewed that this is not one of the percent protective but may allow for interruption of anticoagulation or remaining off anticoagulation depending on workup necessary
Also reviewed with family possibility of underlying occult malignancy given recent acute PE, history of DVT and mediastinal mass.
Retrievable IVC filter placed without complication
At this time, remains off anticoagulation
It is noted that echocardiogram 12/24/2023 shows mild aortic stenosis/aortic regurgitation, normal biventricular function, normal PA pressure
Would recommend follow-up with pulmonary in 3 months at which time we will decide on IVC filter management
Decision regarding removal of IVC filter will need to be determined in the next 3 months
Information left in chart
We will sign off. Please call with questions
Subjective Data
-
Date of Service:
Date of Service: January 30, 2024
Subjective:
Patient appears to be comfortable on room air. She admits to shortness of breath but denies chest pain, nausea, abdominal pain. She is comfortable on room air
Objective Data
Data Reviewed
Vital Signs / I&O / Oxygen:
Vital Signs
Temp Pulse Resp BP Pulse Ox
98 F 51 18 185/84 95
01/30/24 07:58 01/30/24 08:38 01/30/24 07:58 01/30/24 08:38 01/30/24 08:00
Intake and Output
01/29/24 01/30/24 01/31/24
06:59 06:59 06:59
Intake Total 720 / 720 1220 / 1220
Output Total 800 / 800
Balance -80 / -80 1220 / 1220
SaO2 95
Physical Exam
General: Comfortable
HEENT: Normocephalic
Cardiovascular: S1-S2, Regular Rhythm, Murmur (n) and Rub (n)
Respiratory: Wheeze, Crackles (n), Rhonchi (n) and Non-Labored Respirations
GI: Soft, Non Distended and Non Tender
Neurology: Awake, Alert and No Motor Deficits (Aphasia)
Skin: Cyanosis (n) and Jaundice (n)
Labs/Micro/Reports
Lab Data
01/30/24 07:29
01/30/24 07:29
[2024-01-30 11:51] VITALS: BP 119/72
--- NOTE | 2024-01-30 12:39 | W.PN.HOSP.TC ---
Addendum entered and electronically signed by Davin Huang MD 01/30/24 13:26:
Daughter also updated over the phone
Time of discharge 54 minutes
Original Note:
Today's Communication/Plan
-
monitor vitals
see plan
tolerating LRD
cw abx
hold eliquis
awaiting PT
possible DC
Discussed with son over the phone
Assessment / Plan
Assessment / Plan
Physical Exam
General: No Apparent Distress and Comfortable
HEENT: Moist mucous membranes and Atraumatic
Respiratory: Clear
Cardiac: S1/S2 and Regular Rhythm
GI: Soft and not tender.
Rectal: no active bleeding.
Genito-urinary: No costovertebral tender
Musculoskeletal: No Edema
Skin: Warm; No Jaundice
Neuro: Awake, Oriented and Slurred Speech (Chronic ); No Tremors
Psych: Calm; No Agitated
# Acute blood loss anemia/melena/lower GI bleeding
Patient with no nausea/ vomiting/ abdominal discomfort/ pain/ No fever or leukocytosis( wbc was slightly elevate don admission but came down to normal without antibiotics:: Atypical presentation for acute diverticulitis.
No hemodynamic instability on admission
Hemoglobin around 10 on admission and was at 12 in December 2023
CT of the abdomen and pelvis showed no extravasation, abnormal attenuation in the central lower pelvis between the distal sigmoid colon and rectum. 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
Consulted gastroenterology for further recommendation. Patient reported history of diverticulosis and her last colonoscopy was more than 7 years ago. Stopped screening due to age. She followed with GI doctor at [facility] in the past. s/p Flex sig
01/27 with possible diverticulitis however cannot rule out malignancy completely. Spoke with Dr. Graham from GI and will currently treat with antibiotics with patient to have repeat CT scan in 4 to 6 weeks. GI also think patient would likely
rebleed once Eliquis is started. Asked pulmonary to evaluate for need for possible IVC filter. This was also discussed with daughter over the phone
CODE STATUS discussed with patient and son, wants DNR. CODE STATUS changed. I and pulmonary both spoke with patient and her family regarding high risk of bleeding with eliquis. Plan for IVC filter. Status post IVC filter 01/28 by IR. plan to
hold eliquis at this time
Continue with oral PPI
Surgery evaluated the pt, recommended IV Abx for diverticulitis. now on LRD
surgery and GI following. Concern of underlying neoplasm due to clinical history/ CT findings/ recent history on DVT. Will follow
# Cardiac arrhythmia noted on the monitor
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
Heart rate is controlled. Patient did not have chest pain or palpitations.
appears now sinus ros
Mild hypercalcemia
monitor
# Recent 12/2023 PE right upper lobe
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
#History of postoperative right lower extremity DVT
-s/p Eliquis which is on hold now; pulmonary following. now getting IVC filter and will continue to hold eliquis. Patient will follow-up with GI outpatient
-2D echo 12/24/23: EF 60-65%, mild LVH, mild (29//2.3), mild-mod AI.
-Venous Doppler bilateral legs in 12/2023 showed no DVT
-Cardiothoracic surgery consulted, appreciate evaluation and recommendations -- seen by Dr. Isbell recommended OP follow up.
# Mild hypercalcemia,
#Moderate Cardiomegaly on CT Chest, no signs of acute heart failure.
# Mild hyponatremia, resolved.
#Multilevel thoracic DDD/thoracic kyphosis
#DVT hx right lower extremity 1983
#Meningioma removal x2-no residual meningioma per family at bedside at [facility]
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
with post hemorrhage removal after dvt treatment with heparin 19 years ago
- memory impairment noted.
#Essential HTN
-Nifedipine to 90 mg daily
#Hyperlipidemia
#Hypothyroidism/ thyroid nodules
-Continue levothyroxine
Anxiety
-
OA
Diverticulosis/diverticulitis
Hiatal hernia
Constipation
Right breast CA with radiation lumpectomy 16 years ago
Former smoker quit 1980
CODE STATUS
DNR
DaughterLaura [phone].
Son [phone]
Total time spent to see the patient on the floor, examine the patient, review data and lab results, discuss treatment plan with patient, nursing staff around 52 minutes.
Anticipated Discharge: Today
Subjective/Interval History
-
Date of Service: January 30, 2024
denies nausea
Objective Data
-
Labs:
Laboratory Results
01/30/24
07:29
WBC 4.0 L
Hgb 11.2 L
Hct 33.0 L
Plt Count 338
Sodium 139
Potassium 4.4
Chloride 101
Carbon Dioxide 28
BUN 14
Creatinine 0.9
Glucose 124 H
Calcium 10.2
Vital Signs:
Vital Signs
Temp Pulse Resp BP Pulse Ox
98.1 F 72 18 119/72 94
01/30/24 11:51 01/30/24 11:51 01/30/24 11:51 01/30/24 11:51 01/30/24 11:51
I&O
01/29/24 01/30/24 01/31/24
06:59 06:59 06:59
Intake Total 720 / 720 1220 / 1220
Output Total 800 / 800
Balance -80 / -80 1220 / 1220
[2024-01-30 13:15] VITALS: PULSE 61; O2SAT 95
--- NOTE | 2024-01-30 13:25 | W.DCSUMMARY ---
Discharge Summary
Discharge Data
Date of Admission: 01/25/24
Date of Discharge: 01/30/24
-
Pending Results: No
Hospital Course
83-year-old female with past medical history of recent pulmonary embolism on Eliquis, cardiomegaly, osteoarthritis, DVT, meningioma status post removal, aphasia, essential hypertension, hyperlipidemia, hypothyroidism, anxiety, diverticulosis, hiatal
hernia, right breast cancer s/p radiation and lumpectomy, recent mediastinal mass came to the hospital with acute gastrointestinal bleed. CT scan of the abdomen and pelvis was done which showed abnormal attenuation in the central lower pelvis
between the distal sigmoid colon and rectum where malignancy could not be ruled out. Given these findings patient was seen by colorectal surgery and GI. Gastroenterology performed flexible sigmoidoscopy with no clear mass was seen however it
appeared she did had diverticulitis. Gastroenterology recommended patient to stay off Eliquis and to follow-up with them outpatient for possibility of repeating CT scan and colonoscopy outpatient. Since patient had a recent pulmonary embolism,
consulted pulmonary for their opinion on possible need for IVC filter. I And pulmonary both spoke with patient and family and they were agreeable on IVC filter. IR was then consulted and patient got IVC filter on 01/29/2024. For her diverticulitis
she was initially treated with IV antibiotics later transitioned to p.o. antibiotics. While she was hospitalized she also appeared to had brief episode of cardiac arrhythmia. On-call cardiology recommended patient to follow-up with PCP outpatient.
Patient was also evaluated physical therapy who recommended home health. Once her symptoms continue to improve and she was able to tolerate low residue diet, she was then discharged home on oral antibiotics with instructions to follow-up with all
her physicians outpatient.
Discharge Plan
-
Patient Disposition: Home with Home Care
Discharge Diagnosis/Procedures: Acute blood loss anemia likely secondary to lower GI bleeding from possible acute diverticulitis
Suspected mass like lesion in colon
Recent pulmonary embolism on anticoagulation with high risk of bleeding status post IVC filter
Hypercalcemia
Diet: Low Residue
Activity: With assistance and As tolerated
Driving Restrictions: Not until seen by your Dr
Referrals:
Alec Foote MD [Active] -
(3 mo to review management of IVC filter
Need to decide whether IVC can be removed at that time through shared decision making process
Need 30 min visit with Dary)
Darlene Graham MD [Active] - (GI follow up after discharge need to review for pancreatic cyst and MRI if not completed during admission)
Jc Jhaveri MD [Active] -
Carisa Byrne MD [Family Provider] - in less than 1 week
Alfred Jarrell DO [Active] -
Prescriptions:
New
cefdinir 300 mg capsule
300 mg PO BID Qty: 14 0RF
metronidazole 500 mg tablet
500 mg PO Q8H 7 Days Qty: 21 0RF
Continued
omeprazole 40 MG capsule,delayed release(DR/EC)
40 mg PO BID
levothyroxine 150 MCG tablet
150 mcg PO DAILY
furosemide 20 MG tablet
20 mg PO DAILY
rosuvastatin [Crestor] 5 MG tablet
5 mg PO DAILY
cholecalciferol (vitamin D3) 2,000 UNITS tablet
2,000 unit PO DAILY
magnesium oxide 400 MG tablet
400 mg PO DAILY
nifedipine 90 mg tablet extended release
90 mg PO DAILY Qty: 30 0RF
fexofenadine 180 mg Tablet
180 mg PO DAILY
acetaminophen [Tylenol Extra Strength] 500 mg Tablet
500 mg PO Q6HPRN PRN (Reason: mild pain)
citalopram 20 mg Tablet
20 mg PO DAILY
cyanocobalamin (vitamin B-12) 500 mcg Tablet
500 mcg PO DAILY
ascorbic acid (vitamin C) [Vitamin C] 500 mg Tablet
500 mg PO DAILY
folic acid 1 mg Tablet
1 mg PO DAILY
valsartan 160 mg Tablet
160 mg PO DAILY
Caltrate 600 plus D 600 mg-20 mcg (800 unit) Tablet,Chewable
1 tab PO DAILY
Held
Eliquis 5 mg Tablet
5 mg PO BID
Hold Instructions: Until instructed to take again by pulmonary and gastroenterology
Discharge Orders:
Discharge Patient (As Directed); Ordered 01/30/24
Ordered By: Davin Huang
Discharge Date and Time
Discharge Date/Time: 01/30/24 15:17
Print Language: DUTCH
--- NOTE | 2024-01-30 14:05 | CM ---
Lisa has been cleared for discharge to her apartment at [facility] today. Pt's daughter and are here to take her home. Drew DHALIWAL requested; referral sent via [facility].
Plan: Discharge to home with Drew DHALIWAL.
Drew
== END 2024-01-30 15:17 | disposition home health service (06) | DRG 377 ==
LOC: 4 EAST ACU 18:32
PROVIDERS: Emergency Medicine; Internal Medicine; Nurse Practitioner Gerontology; Radiology Diagnostic Radiology; Radiology Vascular & Interventional Radiology; ADMITTING PHYSICIAN Internal Medicine; ATTENDING PHYSICIAN Internal Medicine; EMERGENCY PHYSICIAN Emergency Medicine; FAMILY PHYSICIAN Internal Medicine; OTHER PHYSICIAN Internal Medicine Critical Care Medicine; OTHER PHYSICIAN Surgery
PROC: 0DBN8ZX Excision of Sigmoid Colon, Via Natural or Artificial Opening Endoscopic, Diagnostic (ICD-10-PCS; 2024-01-28)
PROC: 06H03DZ Insertion of Intraluminal Device into Inferior Vena Cava, Percutaneous Approach (ICD-10-PCS; 2024-01-29)
DX: K57.33 Diverticulitis of large intestine without perforation or abscess with bleeding (principal); I26.99 Other pulmonary embolism without acute cor pulmonale; D62 Acute posthemorrhagic anemia; R47.01 Aphasia; K86.2 Cyst of pancreas; E87.1 Hypo-osmolality and hyponatremia; I11.9 Hypertensive heart disease without heart failure; I48.91 Unspecified atrial fibrillation; K57.31 Diverticulosis of large intestine without perforation or abscess with bleeding; E03.9 Hypothyroidism, unspecified; E78.00 Pure hypercholesterolemia, unspecified; K59.09 Other constipation; E83.52 Hypercalcemia; F41.9 Anxiety disorder, unspecified; E04.2 Nontoxic multinodular goiter; R33.8 Other retention of urine; Z92.3 Personal history of irradiation; Z88.8 Allergy status to other drugs, medicaments and biological substances; Z88.5 Allergy status to narcotic agent; Z88.2 Allergy status to sulfonamides; Z88.0 Allergy status to penicillin; Z87.891 Personal history of nicotine dependence; Z86.711 Personal history of pulmonary embolism; Z86.718 Personal history of other venous thrombosis and embolism; Z86.011 Personal history of benign neoplasm of the brain; Z85.3 Personal history of malignant neoplasm of breast; Z79.899 Other long term (current) drug therapy; Z86.0100 Personal history of colon polyps, unspecified; Z79.890 Hormone replacement therapy; Z79.01 Long term (current) use of anticoagulants
CPT/HCPCS: 88305; 36415; 37191; 74174; 80048; 80053; 81003; 82105; 83036; 83615; 83625; 83735; 84439; 84443; 84481; 84702; 85018; 85025; 85027; 85379; 85610; 86041; 86850; 86900; 86901; 93005; 97116; 97162; 97166; 97530; 99284; C1769; C1880; Q9967

== ENCOUNTER → 2024-02-07 11:56 | Outpatient (REF) | payer OTHER, SELFPAY ==
[2024-02-07 16:01] LABS: % Basophils 0.7 % (0-2); % Eosinophils 1.3 % (0-6); % Immature Granulocytes 0.5 % (0-0.5); % Monocytes 6.2 % (1.7-9.3); % Neutrophils 74.3 % (42.2-75.2); Absolute Basophils 0.1 10^3/uL (0-0.2); Absolute Eosinophils 0.1 10^3/uL (0-0.7); Absolute Lymphocytes 1.3 10^3/uL (1.2-3.4); Absolute Monocytes 0.5 10^3/uL (0.1-0.6); Absolute Neutrophils 5.7 10^3/uL (1.4-6.5); Hematocrit 34.4 % (37.0-47.0); Hemoglobin 11.5 g/dL (12.0-16.0); Mean Corp Hgb Conc. 33.4 g/dL (33.0-37.0); Mean Corpuscular Hgb 29.9 pg (27.0-31.0); Mean Corpuscular Volume 89.4 fL (81.0-99.0); Mean Platelet Volume 11.4 fL (7.4-10.4); Nucleated Red Blood Cells % 0 %; Platelet Count 290 10^3/uL (130-400); Red Blood Cell Count 3.85 10^6/uL (4.20-5.40); Red Cell Dist. Width 13.7 % (11.5-14.5); White Blood Cell Count 7.6 10^3/uL (4.8-10.8)
[2024-02-07 16:09] LABS: Blood Urea Nitrogen 18 mg/dl (7-17); Calcium 10.5 mg/dl (8.4-10.2); Carbon Dioxide 27 mmol/L (22-30); Chloride 102 mmol/L (98-107); Glucose 135 mg/dl (70-99); Sodium 142 mmol/L (135-145); eGFR 44.36
== END ==
LOC: HWLAB 11:56
PROVIDERS: ATTENDING PHYSICIAN Thoracic Surgery (Cardiothoracic Vascular Surgery); FAMILY PHYSICIAN Internal Medicine
DX: Z87.19 Personal history of other diseases of the digestive system (principal); E87.1 Hypo-osmolality and hyponatremia; J98.59 Other diseases of mediastinum, not elsewhere classified
CPT/HCPCS: 36415; 80048; 83615; 83625; 85025

== ENCOUNTER → 2024-03-20 11:43 | Outpatient (REF) | payer MEDICARE, SELFPAY ==
[2024-03-20 15:22] LABS: % Basophils 0.7 % (0-2); % Eosinophils 2.5 % (0-6); % Immature Granulocytes 0.2 % (0-0.5); % Lymphocytes 31.3 % (20.5-51.1); % Monocytes 7.7 % (1.7-9.3); % Neutrophils 57.6 % (42.2-75.2); Absolute Eosinophils 0.1 10^3/uL (0-0.7); Absolute Lymphocytes 1.8 10^3/uL (1.2-3.4); Absolute Monocytes 0.4 10^3/uL (0.1-0.6); Absolute Neutrophils 3.3 10^3/uL (1.4-6.5); Hematocrit 37.5 % (37.0-47.0); Hemoglobin 12.1 g/dL (12.0-16.0); Mean Corp Hgb Conc. 32.3 g/dL (33.0-37.0); Mean Corpuscular Hgb 30.7 pg (27.0-31.0); Mean Corpuscular Volume 95.2 fL (81.0-99.0); Nucleated Red Blood Cells % 0 %; Platelet Count 221 10^3/uL (130-400); Red Blood Cell Count 3.94 10^6/uL (4.20-5.40); Red Cell Dist. Width 14.3 % (11.5-14.5); White Blood Cell Count 5.7 10^3/uL (4.8-10.8)
[2024-03-20 15:34] LABS: ALT (SGPT) 15 U/L (0-35); AST (SGOT) 22 U/L (14-36); Albumin 4.5 g/dl (3.5-5.0); Alkaline Phosphatase 90 U/L (38-126); Blood Urea Nitrogen 26 mg/dl (7-17); Calcium 10.5 mg/dl (8.4-10.2); Carbon Dioxide 28 mmol/L (22-30); Chloride 103 mmol/L (98-107); Glucose 122 mg/dl (70-99); HDL Cholesterol 82 mg/dl; LDL Cholesterol, Calculated 111 mg/dl; Potassium 3.9 mmol/L (3.5-5.1); Sodium 140 mmol/L (135-145); Total Bilirubin 0.9 mg/dl (0.2-1.3); Total Cholesterol 223 mg/dl (50-199); Total Protein 7.5 g/dl (6.3-8.2); Triglyceride 153 mg/dl (10-149); Very Low Density Lipoprotein 30 mg/dl (0-30)
== END ==
LOC: HWLAB 11:43
PROVIDERS: ATTENDING PHYSICIAN Internal Medicine
DX: Z87.19 Personal history of other diseases of the digestive system (principal); R10.32 Left lower quadrant pain; E78.5 Hyperlipidemia, unspecified
CPT/HCPCS: 36415; 80053; 80061; 85025

== ENCOUNTER → 2024-04-15 10:44 | Outpatient (REF) | payer OTHER, SELFPAY | LOC: HWRAD 10:44 | PROVIDERS: ATTENDING PHYSICIAN Thoracic Surgery (Cardiothoracic Vascular Surgery); FAMILY PHYSICIAN Internal Medicine | DX: J98.59 Other diseases of mediastinum, not elsewhere classified (principal) | CPT/HCPCS: 71250 ==

== ENCOUNTER → 2024-10-27 10:40 | Outpatient (REF) | payer OTHER, SELFPAY ==
[2024-10-27 16:07] LABS: ALT (SGPT) 17 U/L (0-35); AST (SGOT) 19 U/L (14-36); Albumin 4.5 g/dl (3.5-5.0); Alkaline Phosphatase 107 U/L (38-126); Blood Urea Nitrogen 23 mg/dl (7-17); Calcium 10.4 mg/dl (8.4-10.2); Carbon Dioxide 26 mmol/L (22-30); Chloride 106 mmol/L (98-107); Glucose 147 mg/dl (70-99); HDL Cholesterol 82 mg/dl; LDL Cholesterol, Calculated 100 mg/dl; Potassium 3.9 mmol/L (3.5-5.1); Sodium 138 mmol/L (135-145); Total Protein 7.0 g/dl (6.3-8.2); Very Low Density Lipoprotein 28 mg/dl (0-30); eGFR 54.87
[2024-10-27 16:19] LABS: Free T3 3.12 pg/ml (2.77-5.27)
[2024-10-27 16:33] LABS: TSH 2.88 uIU/ml (0.47-4.68)
[2024-10-28 09:35] LABS: Glycohemoglobin (HgbA1c) 7.3 % (4.0-5.6)
== END ==
LOC: HWLAB 10:40
PROVIDERS: ATTENDING PHYSICIAN Internal Medicine
DX: E03.9 Hypothyroidism, unspecified (principal); E11.9 Type 2 diabetes mellitus without complications; E78.5 Hyperlipidemia, unspecified
CPT/HCPCS: 36415; 80053; 80061; 83036; 84439; 84443; 84481

== ENCOUNTER → 2025-04-06 15:24 | Outpatient (REF) | payer OTHER, SELFPAY | LOC: HWRAD 15:24 | PROVIDERS: ATTENDING PHYSICIAN Internal Medicine | DX: R06.2 Wheezing (principal) | CPT/HCPCS: 71046 ==